=== PATIENT | female | born 1945 | race Caucasian/White ===

== ENCOUNTER → 2020-02-14 09:55 | Outpatient (BNVA) | payer MEDICARE, SELFPAY | PROVIDERS: PCP Internal Medicine; Referring Provider Internal Medicine; Visit Provider Nurse Practitioner | DX: D12.6 Benign neoplasm of colon, unspecified (principal) | CPT/HCPCS: 99213 ==

== ENCOUNTER → 2020-02-20 13:32 | Outpatient (BNVA) | payer MEDICARE, SELFPAY | PROVIDERS: PCP Internal Medicine; Referring Provider Internal Medicine; Visit Provider Internal Medicine | DX: E83.52 Hypercalcemia (principal); E21.3 Hyperparathyroidism, unspecified; M85.80 Other specified disorders of bone density and structure, unspecified site; E55.9 Vitamin D deficiency, unspecified; Z79.899 Other long term (current) drug therapy | CPT/HCPCS: 99202 ==

== ENCOUNTER 2020-02-27 08:29 | Outpatient (REF) | payer MEDICARE, SELFPAY ==
--- NOTE | 2020-02-27 08:34 | US_ITS ---
EXAMINATION: US THYROID CLINICAL INFORMATION: Hyperparathyroidism, unspecified. COMPARISON: None. TECHNIQUE: Linear transducer hendrickson-scale and color Doppler examination with attention to the region of the thyroid. FINDINGS: SIZE: Measurements of the thyroid lobes and nodules are given in sagittal, anteroposterior and transverse dimensions respectively. Right Thyroid Lobe: 4.7 x 1.5 x 1.3 cm, volume 4.9 mL. Parenchyma: The gland echotexture is homogeneous. Thyroid vascularity is normal. Left Thyroid Lobe: 4.5 x 1.5 x 1.4 cm, volume 5.0 mL. Parenchyma: The gland echotexture is homogeneous. Thyroid vascularity is normal. Isthmus: 0.5 cm in maximum AP dimension. RIGHT THYROID LOBE: No nodules. ISTHMUS: No nodules. LEFT THYROID LOBE: No nodules. NODES: No lymphadenopathy is seen in the tissue surrounding the thyroid gland. No visible mass or nodule seen adjacent to the thyroid gland. US/US thyroid IMPRESSION: No evidence of parathyroid adenoma. Unremarkable thyroid ultrasound.
== END 2020-02-27 08:30 | disposition home or self-care (01) ==
LOC: HO.HMGCX 08:29
PROVIDERS: PCP Internal Medicine; Visit Provider Internal Medicine Endocrinology, Diabetes & Metabolism
DX: E21.3 Hyperparathyroidism, unspecified (principal)
CPT/HCPCS: 76536

== ENCOUNTER 2020-03-10 08:56 | Outpatient (REF) | payer MEDICARE, SELFPAY ==
[2020-03-10 11:48] LABS: Albumin Level 4.1 g/dL (3.5-5.0); Calcium 9.8 mg/dL (8.4-10.2)
[2020-03-10 12:12] LABS: Free T4 (Free Thyroxine) 1.11 ng/dL (0.71-1.85); Thyroid Stimulating Hormone 1.96 uIU/mL (0.32-4.0)
[2020-03-11 13:36] LABS: Prot Elec - Albumin 3.6 g/dL (3.8-4.8); Prot Elec - Alpha1 0.4 g/dL (0.2-0.3); Prot Elec - Beta 1 0.5 g/dL (0.4-0.6); Prot Elec - Beta 2 0.4 g/dL (0.2-0.5); Prot Elec - Gamma 1.1 g/dL (0.8-1.7); Prot Elec - Total Protein 6.9 g/dL (6.1-8.1)
[2020-03-11 14:47] LABS: Calcium, Ionized 5.3 mg/dL (4.8-5.6)
[2020-03-11 20:37] LABS: Calcium (PTHI) 10.3 mg/dL (8.6-10.4); PTHI 45 pg/mL (14-64)
[2020-03-17 03:51] LABS: N-Telopeptide 19 (see note); NTXCreaRU 59 mg/dL (20-275)
[2020-03-18 14:03] LABS: Alkaline Phosphatase Bone 10.3 mcg/L (5.6-29.0)
== END 2020-03-10 08:57 | disposition home or self-care (01) ==
LOC: HO.HMGCLDS 08:56
PROVIDERS: PCP Internal Medicine; Visit Provider Internal Medicine
DX: E55.9 Vitamin D deficiency, unspecified (principal); E21.3 Hyperparathyroidism, unspecified
CPT/HCPCS: 36415; 82040; 82306; 82310; 82330; 82523; 83970; 84075; 84100; 84155; 84165; 84439; 84443

== ENCOUNTER 2020-03-12 09:16 | Outpatient (REF) | payer MEDICARE, SELFPAY ==
[2020-03-12 12:12] LABS: Total Volume 24 Hour Urine 3050 mL
[2020-03-12 12:52] LABS: Creatinine, 24Hr Urine 0.7 G/Day (1.0-2.0); Creatinine, mg/dL 22.76
[2020-03-13 16:57] LABS: Calcium, 24 Hr Urine 165 mg/24 h; Calcium/Creatinine Ratio 216 mg/g creat (30-275); Creatinine 24Hr Urine 0.76 g/24 h (0.50-2.15)
== END 2020-03-12 09:17 | disposition home or self-care (01) ==
LOC: HO.HMGCLNP 09:16
PROVIDERS: Visit Provider Internal Medicine
DX: E21.3 Hyperparathyroidism, unspecified (principal)
CPT/HCPCS: 82340; 82570

== ENCOUNTER 2020-04-10 08:59 | Outpatient (REF) | payer MEDICARE, SELFPAY | END 2020-04-10 09:00 | disposition home or self-care (01) | LOC: HO.MAMMO 08:59 | PROVIDERS: Visit Provider Internal Medicine | DX: Z13.89 Encounter for screening for other disorder (principal) ==

== ENCOUNTER 2020-04-14 10:35 | Day surgery (SDC) | payer MEDICARE, SELFPAY ==
[2020-04-07 12:58] VITALS: BMI 25.5
--- NOTE | 2020-04-13 09:14 | HO.ANESPROP2 ---
Documented by User: Laureen Hussein 04/13/20 09:16 HPI - Anesthesia Eval Consult details Narrative: 74yo F for Colonoscopy PMFSH Past Medical History Medical History Background diabetic retinopathy of right eye determined by examination Diabetes Elevated cholesterol HTN (hypertension) Hypercalcemia Hyperparathyroidism Osteopenia Vitamin D deficiency Family History Family History Father Hypertension Diabetes mellitus Heart problem Mother Hypertension Diabetes mellitus Osteoporosis Colon polyps Surgical History Surgical History Hx of cholecystectomy Hx of colonoscopy Hx of hysterectomy Social History Social History Alcohol intake: current Alcohol intake frequency: holidays/special occasions only Smoking Status: Former smoker Tobacco Type: Cigarette Packs Per Day: 1 Years Smoked: 50 Smoked in Last 30 Days: No Smoking Quit Date: 2012 Use of substances other than those prescribed or required for medical reasons: No Advance Directives Information Provided: No Recently lost weight without trying: No Meds Allergies Allergy/AdvReac Type Severity Reaction Status Date / Time No Known Allergies Allergy Verified 04/06/20 08:01 Home Medications Medication Instructions Recorded Confirmed Type folic acid 400 mcg tablet 0.4 mg PO DAILY 02/20/20 04/07/20 History metformin 1,000 mg tablet 1,000 mg PO BID 02/20/20 04/07/20 History omega-3 fatty acids 1,000 mg 1,200 mg PO DAILY cap 02/20/20 04/07/20 History capsule simvastatin 20 mg tablet 20 mg PO DAILY 02/20/20 04/07/20 History cholecalciferol (vitamin D3) 25 25 mcg PO DAILY 04/06/20 04/07/20 History mcg (1,000 unit) capsule Exam Exam Date and Time: April 13, 2020 0914 Height,Weight and Vital Signs: Height 5 ft 2.5 in Weight 64.41 kg Assessment and Plan Assessment Anesthesia Assessment: Chart Reviewed Documented by User: Raúl Hallman 04/14/20 11:35 PMFSH Past Medical History Medical History Background diabetic retinopathy of right eye determined by examination Diabetes Elevated cholesterol HTN (hypertension) Hypercalcemia Hyperparathyroidism Osteopenia Vitamin D deficiency Family History Family History Father Hypertension Diabetes mellitus Heart problem Mother Hypertension Diabetes mellitus Osteoporosis Colon polyps Surgical History Surgical History Hx of cholecystectomy Hx of colonoscopy Hx of hysterectomy Social History Social History Alcohol intake: current Alcohol intake frequency: holidays/special occasions only Smoking Status: Former smoker Tobacco Type: Cigarette Packs Per Day: 1 Years Smoked: 50 Smoked in Last 30 Days: No Smoking Quit Date: 2012 Use of substances other than those prescribed or required for medical reasons: No Advance Directives Information Provided: No Recently lost weight without trying: No Meds Allergies Allergy/AdvReac Type Severity Reaction Status Date / Time No Known Allergies Allergy Verified 04/06/20 08:01 Home Medications Medication Instructions Recorded Confirmed Type folic acid 400 mcg tablet 0.4 mg PO DAILY 02/20/20 04/07/20 History metformin 1,000 mg tablet 1,000 mg PO BID 02/20/20 04/07/20 History omega-3 fatty acids 1,000 mg 1,200 mg PO DAILY cap 02/20/20 04/07/20 History capsule simvastatin 20 mg tablet 20 mg PO DAILY 02/20/20 04/07/20 History cholecalciferol (vitamin D3) 25 25 mcg PO DAILY 04/06/20 04/07/20 History mcg (1,000 unit) capsule Exam Airway Mallampati Class: II TM Dist: >3cm Neck ROM: Full Denture: Upper
[2020-04-14 11:02] VITALS: BP 162/55; PULSE 79; RESP 16; TEMP 36.1; O2SAT 96
[2020-04-14 11:02] LABS: Glucose, Whole Blood 110 mg/dL (60-115)
[2020-04-14] MEDS: Lactated Ringers 1,000 ML 100 ML IVCONT (11:03)
--- NOTE | 2020-04-14 12:20 | P.HPSUR_ITS ---
Pre-Procedural Eval Section B Chief Complaint: benign neoplasm of colon Details of Present Illness: Colon cancer screening, hx of colon polyps Relevant Family History (Specify if Yes): No Relevant Social History: Tobacco Use (former smoker) Present Medications: see Short Stay Collaborative assessment Medical History: Significant History (Hypertension. type II diabetes. ) History of Previous Operations: Relevant previous surgery/procedure and date(s) (Colonoscopy--Tubular adenoma 03/02/09 cholecystectomy 1975 kidney surgery. kidney stones 1079 partial hysterectomy 1998 Colonoscopy--polyps hyperplastic. 10/09/12 Colonoscopy - Dr. Contreras - [facility] [place]/2018 colonoscopy-Dr. Contreras TA's X2 03/2019 ) Allergies: Allergies Allergy/AdvReac Type Severity Reaction Status Date / Time No Known Allergies Allergy Verified 04/06/20 08:01 Review of Systems Sugical H&P ROS: Negative: Constitution, Cardiovascular, Respiratory and Gastrointestinal Exam Surgical H&P Exam: Normal: Heart, Normal: Lungs, Normal: Extremities and Normal: Abdomen Plan Diagnosis/Plan: Unchanged I have reviewed the history and physical and performed a pertinent physical examination on my patient. No changes have occurred unless specified.
--- NOTE | 2020-04-14 12:20 | PM.OP ---
Brief Operative Note Date of Service: 04/14/20 Pre-op diagnosis: Colon cancer screening, hx of colon polyps Post-op diagnosis: other (Colon polyps, diverticulosis, hemorrhoids, cecal AVMs) Procedure: COLONOSCOPY TILL CECUM WITH BIOPSIES AND SNARE POLYPECTOMY Consent: Indications for the procedure and potential complications of bleeding, perforation, reaction to medications and missed diagnosis were discussed with the patient and informed consent was obtained. Instrument: Olympus PCF H 190 L variable stiffness pediatric colonoscope Monitoring: Vital signs and clinical assessment, intermittent blood pressure monitoring, continuous EKG monitoring, Pulse oximetry and Carbon Dioxide monitoring were done throughout the procedure. Colon withdrawl time was 24 minutes. Procedure: The patient was placed in the left lateral decubitis position and pre-procedure medications were administered. After a digital rectal examination of the ano-rectum, the video colonoscope was inserted into the rectum and advanced through the colon to the cecum. The colonoscope was slowly withdrawn in a retrograde panoramic fashion and the colon mucosa was carefully examined including a retroflexed view of the rectum. Findings and interventions are described below. Procedure Difficulty: Without difficulty Findings: Terminal Ileum: Not evaluated Cecum: Two 1 to 2 cms non-bleeding AVMs. Scar in the cecum with adjacent ellie ink tattoo (likely site of past polypectomy) with ? 4-5 mm recurrent polyp removed with a cold bx. Ascending Colon: Two 3-4 mm sessile polyps removed with a cold bx. Transverse Colon: Normal Descending Colon: Moderate diverticulosis Sigmoid Colon: A 12 - 15 mm sessile polyp at 30 cms removed with a hot snare (polyp was at a distance of 60 cms from the anal verge during intubation). A 12-15 mm sessile polyp at 20 cms removed with a hot snare. Moderate diverticulosis Rectum: Multiple 5-7 mm diminutive polyps on retroflexed exam - one was biopsied. Ano-rectum: Inflamed hypertrophied anal papilla. Moderate internal hemorrhoids Colon preparation: Good after some irrigation Impression and Post Procedure Diagnosis: Colonoscopy Findings: Six polyps removed (Sigmoid colon polyp at 30 cms likely to be the polyp noted on previous colonoscopy which could not be removed due to colon spasm) Moderate diverticulosis seen in the left colon Moderate hemorrhoids and an inflamed hypertrophied anal papilla on retroflexed exam. Plan: Await pathology results Patient has an appointment on 04/27/20 in the GI [facility] with Zaria Mcdonald NP. Repeat Colonoscopy interval based on path results - in 3 years if polyps are adenomatous and due to a hx of multiple adenomatous colon polyps. Above findings were reviewed with the patient and colon polyps and diverticulosis handouts were given in the discharge area Surgeon: Papito Brooks MD Anesthesia: MAC (Cassandra Bob CRNA) Estimated blood loss (mL): 0 Pathology: other (A: SIGMOID COLON POLYP AT 30CM B: ASCENDING COLON POLYP C: BX POLYPECTOMY SITE IN THE CECUM D: SIGMOID COLON POLYP E: SIGMOID COLON POLYP AT 20CM F: RECTAL POLYP) Condition: stable Disposition: PACU
[2020-04-14 13:13] VITALS: BP 81/30; PULSE 73; RESP 12; TEMP 36.6; O2SAT 95
[2020-04-14 13:17] VITALS: BP 81/30; PULSE 75; O2SAT 95
[2020-04-14 13:20] VITALS: BP 112/43; PULSE 80; RESP 15; O2SAT 97
[2020-04-14 13:30] VITALS: BP 101/53; PULSE 82; RESP 18; O2SAT 98
[2020-04-14 13:45] VITALS: BP 143/53; PULSE 71; RESP 14; TEMP 36.5; O2SAT 100
== END 2020-04-14 14:20 | disposition home or self-care (01) ==
PROVIDERS: PCP Internal Medicine; Visit Provider Internal Medicine Gastroenterology
PROC: 0DJD8ZZ Inspection of Lower Intestinal Tract, Via Natural or Artificial Opening Endoscopic (ICD-10-PCS; CPT 45378; principal; 2020-04-14 12:30)
DX: Z12.11 Encounter for screening for malignant neoplasm of colon (principal); Z86.010 Personal history of colon polyps; D12.2 Benign neoplasm of ascending colon; K63.5 Polyp of colon; K62.1 Rectal polyp; K55.20 Angiodysplasia of colon without hemorrhage; K57.30 Diverticulosis of large intestine without perforation or abscess without bleeding; K64.8 Other hemorrhoids; K62.89 Other specified diseases of anus and rectum; E11.319 Type 2 diabetes mellitus with unspecified diabetic retinopathy without macular edema; Z79.84 Long term (current) use of oral hypoglycemic drugs; I10 Essential (primary) hypertension; M85.80 Other specified disorders of bone density and structure, unspecified site; Z79.899 Other long term (current) drug therapy; Z90.49 Acquired absence of other specified parts of digestive tract; Z87.891 Personal history of nicotine dependence
CPT/HCPCS: 45385; 45380; 82947; 88305; J2370

== ENCOUNTER → 2020-05-14 09:08 | Outpatient (BNVA) | payer MEDICARE, SELFPAY | PROVIDERS: PCP Internal Medicine; Visit Provider Nurse Practitioner | DX: Z13.89 Encounter for screening for other disorder (principal) | CPT/HCPCS: Q3014 ==

== ENCOUNTER 2020-06-05 09:51 | Outpatient (REF) | payer MEDICARE, SELFPAY ==
--- NOTE | ~2020-06-05 | MM_ITS ---
EXAMINATION: BONE DENSITOMETRY CLINICAL INDICATION: Screening for osteoporosis. COMPARISON: Previous BD dated 05/24/2018 and baseline BD dated 01/29/2009, spine and left hip. This is the patient's baseline examination for the forearm radius 33%. TECHNIQUE: Using a VivaSmart DXA System (software version: 13.1) manufactured by [employer], dual-energy x-ray absorptiometry was performed of the lumbar spine, left hip, and left forearm radius 33%. The images are of good technical quality. Summary results are attached. FINDINGS: AP SPINE L1-L4: Current: BMD 1.254 g/cm2, Z-score 2.2, T-score 0.6, normal, 4.6% decrease from previous, 7.5% increase from baseline (<5% change is not significant). Prior: BMD 1.314 g/cm2. Baseline: BMD 1.167 g/cm2. LEFT FEMUR, NECK: Current: BMD 0.818 g/cm2, Z-score 0.2, T-score -1.6, osteopenia. Prior: BMD 0.770 g/cm2. Baseline: BMD 0.775 g/cm2. LEFT FEMUR, TOTAL: Current: BMD 0.804 g/cm2, Z-score -0.1, T-score -1.6, osteopenia, 0.2% decrease from previous, 2.3% decrease from baseline (<5% change is not significant). Prior: BMD 0.806 g/cm2. Baseline: BMD 0.823 g/cm2. LEFT FOREARM RADIUS 33%: BMD 0.708 g/cm2, Z-score 0.2, T-score -1.9, osteopenia. Prior: Not previously measured. IDENTIFIED RISK FACTORS: Menopause, hysterectomy, bilateral oophorectomy, osteoporosis, hyperparathyroidism. HISTORY OF FRACTURE: None listed. MEDICATIONS: Vitamin D. MM/XR DEXA axial skeleton IMPRESSION: 1. DIAGNOSIS: Osteopenia based on the lowest T-score value of -1.9 in the forearm radius 33% applying World Health Organization criteria. 2. 10-YEAR FRACTURE RISK PREDICTION, FRAX: Major osteoporotic fracture (clinical spine, forearm, hip or shoulder) 11.1%. Hip fracture 2.1%. 3. Treatment Recommendations: NOF guidelines recommend consideration for treatment in postmenopausal women and men age 50 and older presenting with the following: -A hip or vertebral (clinical or morphometric) fracture. -T-score less than or equal to -2.5 at the femoral neck or spine after appropriate evaluation to exclude secondary causes. -Low bone mass at the hip or spine and a 10-year fracture probability by FRAX of greater than or equal to 3% for hip fracture or greater than or equal to 20% for major osteoporotic fracture based on the [place] adapted WHO algorithm. 4. Other Recommendations: All treatment decisions require clinical judgment and consideration of individual patient factors, including patient preferences, comorbidities, previous drug use, risk factors not captured in the FRAX model (e.g. frailty, falls, vitamin D deficiency, increased bone turnover, interval significant decline in bone density) and possible under or overestimation of fracture risk by FRAX. Additional medical evaluation for secondary cause of low bone mineral density may be appropriate. FUTURE SCAN RECOMMENDATION: People with diagnosed cases of osteoporosis or at high risk for fracture should have regular bone mineral density tests. For patients eligible for Medicare, routine testing is allowed once every 2 years. The testing frequency can be increased to one year for patients who have rapidly progressing disease, those who are receiving or discontinuing medical therapy to restore bone mass, or have additional risk factors.
== END 2020-06-05 09:52 | disposition home or self-care (01) ==
LOC: HO.MAMMO 09:51
PROVIDERS: PCP Internal Medicine; Visit Provider Internal Medicine
DX: Z13.820 Encounter for screening for osteoporosis (principal); E21.3 Hyperparathyroidism, unspecified; Z78.0 Asymptomatic menopausal state; Z90.710 Acquired absence of both cervix and uterus; Z90.722 Acquired absence of ovaries, bilateral
CPT/HCPCS: 77080

== ENCOUNTER 2020-06-11 09:19 | Outpatient (REF) | payer MEDICARE, SELFPAY ==
[2020-06-11 11:18] LABS: Alanine Aminotransferase 10 U/L (0-31); Anion Gap 14 (12-20); Aspartate Amino Transferase 14 U/L (5-31); Blood Urea Nitrogen 7 mg/dL (9-16); Calcium 9.7 mg/dL (8.4-10.2); Carbon Dioxide 25 mmol/L (22-29); Chloride 104 mmol/L (96-108); Cholesterol 194 mg/dL; Estimated Glomerular Filt Rate > 60; Glucose Fasting 115 mg/dL (60-99); HDL Cholesterol 65 mg/dL; LDL Cholesterol Calculated 97 mg/dl; Potassium 4.4 mmol/L (3.3-5.1); Sodium 139 mmol/L (135-145); Triglycerides 160 mg/dL
[2020-06-11 11:24] LABS: Estimated Average Glucose 117 mg/dL; Hemoglobin A1c % 5.7 %
[2020-06-11 11:41] LABS: Microalbum/Creatinine Ratio Ur 18.9 ug/mg cr
[2020-06-11 11:42] LABS: Vitamin D 25-OH Total 37.9 ng/mL (>30)
[2020-06-11 13:19] LABS: Albumin Level 4.2 g/dL (3.5-5.0); Calcium 9.8 mg/dL (8.4-10.2); Estimated Glomerular Filt Rate > 60; Phosphorus 3.7 mg/dL (2.7-4.5)
[2020-06-11 13:41] LABS: Vitamin D 25-OH Total 41.6 ng/mL (>30)
[2020-06-12 10:37] LABS: Calcium (PTHI) 9.9 mg/dL (8.6-10.4); PTHI 55 pg/mL (14-64)
[2020-06-12 14:37] LABS: Calcium, Ionized 5.2 mg/dL (4.8-5.6)
== END 2020-06-11 09:20 | disposition home or self-care (01) ==
LOC: HO.10HDL 09:19
PROVIDERS: Visit Provider Internal Medicine
DX: E11.9 Type 2 diabetes mellitus without complications (principal); E78.5 Hyperlipidemia, unspecified; E83.52 Hypercalcemia; M85.80 Other specified disorders of bone density and structure, unspecified site; E21.3 Hyperparathyroidism, unspecified; E55.9 Vitamin D deficiency, unspecified
CPT/HCPCS: 36415; 80048; 80061; 82040; 82043; 82306; 82310; 82330; 82565; 83036; 83970; 84100; 84450; 84460

== ENCOUNTER 2020-06-29 | Outpatient (REF) | payer MEDICARE, SELFPAY ==
[2020-06-29 12:16] LABS: Creatinine, mg/dL 49.39
[2020-06-29 13:39] LABS: Creatinine, 24Hr Urine 0.7 G/Day (1.0-2.0); Total Volume 24 Hour Urine 1425 mL
[2020-07-02 21:37] LABS: Calcium, 24 Hr Urine 171 mg/24 h; Calcium/Creatinine Ratio 226 mg/g creat (30-275); Creatinine 24Hr Urine 0.76 g/24 h (0.50-2.15)
== END 2020-06-29 00:01 | disposition home or self-care (01) ==
LOC: HO.HMGCLNP
PROVIDERS: Visit Provider Internal Medicine
DX: E21.3 Hyperparathyroidism, unspecified (principal)
CPT/HCPCS: 82340; 82570

== ENCOUNTER 2020-07-01 08:52 | Outpatient (REF) | payer MEDICARE, SELFPAY ==
--- NOTE | ~2020-07-01 | MM_ITS ---
EXAMINATION: MM SCREENING DIGITAL BREAST TOMOSYNTHESIS, BILATERAL CLINICAL INFORMATION: Screening. Asymptomatic. The lifetime risk of breast cancer based on the Tyrer-Cuzick Model is 4.6%. Status post incisional biopsy right breast. COMPARISON: Mammography: January 17, 2019 and studies dating back to January 20, 2009 TECHNIQUE: Digital breast tomosynthesis is performed in both the craniocaudal and mediolateral oblique views along with computer-aided detection (CAD). Synthesized 2D images are generated from the tomosynthesis. FINDINGS: There are scattered areas of fibroglandular density (ACR BI-RADS breast composition Category b). There are no new significant masses, abnormal calcifications, or other abnormalities. Postsurgical change seen superior aspect of the right breast. MM/MM tomosynthesis screening BI IMPRESSION: There are no significant changes from prior study. ASSESSMENT: BI-RADS 2: Benign RECOMMENDATION: Routine annual mammography screening. This patient's information was entered into a reminder system with a target due date for their next mammogram.
== END 2020-07-01 08:53 | disposition home or self-care (01) ==
LOC: HO.MAMMO 08:52
PROVIDERS: PCP Internal Medicine; Visit Provider Internal Medicine
DX: Z12.31 Encounter for screening mammogram for malignant neoplasm of breast (principal)
CPT/HCPCS: 77063; 77067

== ENCOUNTER → 2020-07-06 07:28 | Outpatient (BNVA) | payer MEDICARE, SELFPAY | PROVIDERS: PCP Internal Medicine; Visit Provider Internal Medicine | DX: Z13.89 Encounter for screening for other disorder (principal) | CPT/HCPCS: Q3014 ==

== ENCOUNTER 2020-08-05 10:27 | Outpatient (REF) | payer MEDICARE, SELFPAY ==
--- NOTE | ~2020-08-05 | US_ITS ---
EXAMINATION: US RETROPERITONEAL LIMITED (RENAL ONLY) CLINICAL INFORMATION: Hyperparathyroidism, unspecified. COMPARISON: None TECHNIQUE: Real-time imaging of the kidneys. FINDINGS: RIGHT KIDNEY: 11.7 x 5.7 x 5.1 cm (SAG x AP x TRV). The kidney is normal in size, contour, and echogenicity. Renal cortical thickness is normal. No focal parenchymal lesions or hydronephrosis. There is an echogenic stone versus calcification midpole measuring 0.5 x 0.2 x 0.4 cm. There is a hypertrophied column of Gee in the upper pole. LEFT KIDNEY: 10.4 x 4.5 x 4.7 cm (SAG x AP x TRV). The kidney is normal in size, contour, and echogenicity. Renal cortical thickness is normal. No focal parenchymal lesions or hydronephrosis. There are 2 echogenic stones in the lower pole measuring 0.2 x 0.2 x 0.1 cm and 0.2 x 0.2 x 0.2 cm. US/US renal BI IMPRESSION: Likely cortical calcification versus echogenic stone midpole right kidney. No calyces is or hydronephrosis seen. 2 nonobstructive echogenic stones lower pole left kidney.
== END 2020-08-05 10:28 | disposition home or self-care (01) ==
LOC: HO.HMGCX 10:27
PROVIDERS: Visit Provider Internal Medicine
DX: E21.3 Hyperparathyroidism, unspecified (principal)
CPT/HCPCS: 76775

== ENCOUNTER 2020-12-29 09:32 | Outpatient (REF) | payer MEDICARE, SELFPAY ==
[2020-12-29 12:25] LABS: Vitamin D 25-OH Total 46.7 ng/mL (>30)
[2020-12-29 12:33] LABS: Alanine Aminotransferase 12 U/L (0-31); Albumin Level 4.2 g/dL (3.5-5.0); Alkaline Phosphatase 79 U/L (39-117); Anion Gap 17 (12-20); Aspartate Amino Transferase 17 U/L (5-31); Bilirubin Total 0.5 mg/dL (0.0-1.0); Blood Urea Nitrogen 6 mg/dL (9-16); Calcium 10.7 mg/dL (8.4-10.2); Carbon Dioxide 20 mmol/L (22-29); Chloride 105 mmol/L (96-108); Cholesterol 133 mg/dL; Estimated Glomerular Filt Rate > 60; Glucose Fasting 108 mg/dL (60-99); HDL Cholesterol 58 mg/dL; LDL Cholesterol Calculated 52 mg/dl; Phosphorus 3.7 mg/dL (2.7-4.5); Potassium 4.7 mmol/L (3.3-5.1); Sodium 137 mmol/L (135-145); Total Protein 7.2 g/dL (6.5-8.0); Triglycerides 118 mg/dL
[2020-12-29 13:24] LABS: Estimated Average Glucose 108 mg/dL; Hemoglobin A1c % 5.4 %
[2021-01-03 06:31] LABS: Calcium (PTHI) 10.6 mg/dL (8.6-10.4); PTHI 51 pg/mL (14-64)
== END 2020-12-29 09:33 | disposition home or self-care (01) ==
LOC: HO.HMGCLDS 09:32
PROVIDERS: PCP Internal Medicine; Visit Provider Internal Medicine
DX: I10 Essential (primary) hypertension (principal); E11.3291 Type 2 diabetes mellitus with mild nonproliferative diabetic retinopathy without macular edema, right eye; E55.9 Vitamin D deficiency, unspecified; M85.80 Other specified disorders of bone density and structure, unspecified site; E78.5 Hyperlipidemia, unspecified; E21.3 Hyperparathyroidism, unspecified
CPT/HCPCS: 36415; 80048; 80053; 80061; 82306; 83036; 83970; 84100

== ENCOUNTER → 2021-01-04 07:35 | Outpatient (BNVA) | payer MEDICARE, SELFPAY | PROVIDERS: PCP Internal Medicine; Visit Provider Internal Medicine | CPT/HCPCS: Q3014 ==

== ENCOUNTER 2021-01-08 12:52 | Outpatient (REF) | payer MEDICARE, SELFPAY ==
--- NOTE | ~2021-01-08 | US_ITS ---
EXAMINATION: US THYROID CLINICAL INFORMATION: Hyperparathyroidism, unspecified. COMPARISON: Ultrasound soft tissue head/neck thyroid dated 02/27/2020. TECHNIQUE: Linear transducer grayscale and color Doppler examination with attention to the region of the thyroid. FINDINGS: SIZE: Measurements of the thyroid lobes and nodules are given in sagittal, anteroposterior and transverse dimensions respectively. Right Thyroid Lobe: 4.2 x 1.3 x 1.2 cm, volume 3.5 mL. Previously 4.7 x 1.5 x 1.3 cm, volume 4.9 mL. Parenchyma: The gland echotexture is homogeneous. Thyroid vascularity is normal. Left Thyroid Lobe: 5.1 x 1.6 x 1.1 cm, volume 4.6 mL. Previously 4.5 x 1.5 x 1.4 cm, volume 5.0 mL. Parenchyma: The gland echotexture is homogeneous. Thyroid vascularity is normal. Isthmus: 0.69 cm in maximum AP dimension. Previously 0.50 cm. Estimated total number of nodules greater than or equal to 1 cm: 0. Isobutylene Operator Chief nodules are described as follows: 1. Location: Isthmus. Size: 0.20 x 0.21 x 0.30 cm, volume 0.01 mL. Nodule characteristics: Composition: Cystic(0). ACR TI-RADS total points: 0 ACR TI-RADS category: 1 NODES: No lymphadenopathy is seen in the tissue surrounding the thyroid gland. US/US thyroid IMPRESSION: Single thyroid nodule, not suspicious. Thyroid gland is unremarkable otherwise. No evidence of nodule adjacent to the parathyroid gland to suspect any parathyroid adenoma. ACR TI-RADS RECOMMENDATION REFERENCE: Ultrasound-guided fine-needle aspiration, followup ultrasound, no further follow up. * TR1 (0 point) and TR 2 (2 points): No FNA or follow up * TR3 (3 points): FNA if more than or equal to 2.5 cm in maximum dimension, followup ultrasound in 1, 3 and 5 years if 1.5 to 2.4 cm in maximum dimension. * TR4 (4-6 points): FNA if more than or equal to 1.5 cm in maximum dimension, followup ultrasound in 1, 2, 3 and 5 years if 1 to 1.4 cm in maximum dimension. * TR5 (more than or equal to 7 points): FNA if more than or equal to 1 cm in maximum dimension, followup ultrasound every year for 5 years if 0.5 to 0.9 cm in maximum dimension. * TR3, TR4 or TR5 nodules that are below the size threshold for follow up receive no follow up.
== END 2021-01-08 12:53 | disposition home or self-care (01) ==
LOC: HO.HMGCX 12:52
PROVIDERS: PCP Internal Medicine; Visit Provider Internal Medicine
DX: E21.3 Hyperparathyroidism, unspecified (principal)
CPT/HCPCS: 76536

== ENCOUNTER 2021-02-03 14:06 | Outpatient (REF) | payer MEDICARE, SELFPAY ==
[2021-02-03 14:23] LABS: IDNOW Serial# 08D9AD1C; Strep A Nucleic Acid Negative (Negative)
== END 2021-02-03 14:07 | disposition home or self-care (01) ==
LOC: HO.LNP 14:06
PROVIDERS: Visit Provider Physician Assistant Medical
DX: J02.9 Acute pharyngitis, unspecified (principal)
CPT/HCPCS: 87651

== ENCOUNTER 2021-02-04 11:42 | Outpatient (REF) | payer MEDICARE, SELFPAY ==
[2021-02-04 12:36] LABS: Influenza A PCR NEGATIVE (Negative); Influenza B PCR NEGATIVE (Negative); Resp Syncy Virus RNA Qual PCR NEGATIVE (Negative); SARS COV2 PCR INHOUSE NEGATIVE (Negative)
== END 2021-02-04 11:43 | disposition home or self-care (01) ==
LOC: HO.LNP 11:42
PROVIDERS: Visit Provider Physician Assistant Medical
DX: J06.9 Acute upper respiratory infection, unspecified (principal); Z20.822 Contact with and (suspected) exposure to COVID-19
CPT/HCPCS: 0241U

== ENCOUNTER 2021-06-28 08:11 | Outpatient (REF) | payer MEDICARE, SELFPAY ==
[2021-06-28 12:09] LABS: Vitamin D 25-OH Total 49.3 ng/mL (>30)
[2021-06-28 12:11] LABS: Alanine Aminotransferase 14 U/L (0-31); Alkaline Phosphatase 97 U/L (39-117); Anion Gap 12 (12-20); Aspartate Amino Transferase 19 U/L (5-31); Bilirubin Total 0.4 mg/dL (0.0-1.0); Blood Urea Nitrogen 9 mg/dL (9-16); Calcium 9.4 mg/dL (8.4-10.2); Carbon Dioxide 26 mmol/L (22-29); Chloride 104 mmol/L (96-108); Estimated Glomerular Filt Rate > 60; Glucose Random 113 mg/dL (60-115); Phosphorus 3.6 mg/dL (2.7-4.5); Potassium 4.4 mmol/L (3.3-5.1); Sodium 138 mmol/L (135-145); Total Protein 7.2 g/dL (6.5-8.0)
[2021-06-29 17:56] LABS: Calcium (PTHI) 9.3 mg/dL (8.6-10.4); PTHI 25 pg/mL (14-64)
== END 2021-06-28 08:12 | disposition home or self-care (01) ==
LOC: HO.HMGCLDS 08:11
PROVIDERS: Absent Provider Internal Medicine; PCP Internal Medicine; Visit Provider Internal Medicine
DX: E55.9 Vitamin D deficiency, unspecified (principal); E21.3 Hyperparathyroidism, unspecified
CPT/HCPCS: 36415; 80053; 82306; 83970; 84100

== ENCOUNTER 2021-07-01 10:17 | Outpatient (REF) | payer MEDICARE, SELFPAY ==
[2021-07-01 12:21] LABS: Cholesterol 143 mg/dL; HDL Cholesterol 59 mg/dL; LDL Cholesterol Calculated 60 mg/dl; Triglycerides 124 mg/dL
== END 2021-07-01 10:18 | disposition home or self-care (01) ==
LOC: HO.HMGCLDS 10:17
PROVIDERS: PCP Internal Medicine; Visit Provider Internal Medicine
DX: E11.9 Type 2 diabetes mellitus without complications (principal); E78.5 Hyperlipidemia, unspecified
CPT/HCPCS: 36415; 80061

== ENCOUNTER → 2021-07-05 07:27 | Outpatient (BNVA) | payer MEDICARE, SELFPAY | PROVIDERS: PCP Internal Medicine; Visit Provider Internal Medicine | DX: E21.3 Hyperparathyroidism, unspecified (principal); E55.9 Vitamin D deficiency, unspecified; E04.1 Nontoxic single thyroid nodule; M85.80 Other specified disorders of bone density and structure, unspecified site | CPT/HCPCS: 99212 ==

== ENCOUNTER 2021-12-24 09:24 | Outpatient (REF) | payer MEDICARE, SELFPAY ==
[2021-12-24 12:12] LABS: Vitamin D 25-OH Total 40.5 ng/mL (>30)
[2021-12-24 12:18] LABS: Thyroid Stimulating Hormone 2.41 uIU/mL (0.32-4.0)
[2021-12-24 12:20] LABS: Alanine Aminotransferase 24 U/L (0-31); Albumin Level 3.8 g/dL (3.5-5.0); Alkaline Phosphatase 92 U/L (39-117); Anion Gap 19 (12-20); Aspartate Amino Transferase 30 U/L (5-31); Bilirubin Total 0.4 mg/dL (0.0-1.0); Blood Urea Nitrogen 8 mg/dL (9-16); Calcium 8.9 mg/dL (8.4-10.2); Carbon Dioxide 20 mmol/L (22-29); Chloride 105 mmol/L (96-108); Cholesterol 97 mg/dL; Estimated Glomerular Filt Rate > 60; Glucose Fasting 104 mg/dL (60-99); HDL Cholesterol 50 mg/dL; LDL Cholesterol Calculated 29 mg/dl; Phosphorus 3.9 mg/dL (2.7-4.5); Potassium 4.5 mmol/L (3.3-5.1); Sodium 139 mmol/L (135-145); Total Protein 6.9 g/dL (6.5-8.0); Triglycerides 90 mg/dL
[2021-12-24 17:14] LABS: Creatinine Urine 40.66 mg/dL; Microalbum/Creatinine Ratio Ur 14.7 ug/mg cr
[2021-12-26 18:51] LABS: PTHI 20 pg/mL (16-77)
== END 2021-12-24 09:25 | disposition home or self-care (01) ==
LOC: HO.HMGCLDS 09:24
PROVIDERS: Absent Provider Internal Medicine; PCP Internal Medicine; Visit Provider Internal Medicine
DX: E11.9 Type 2 diabetes mellitus without complications (principal); E55.9 Vitamin D deficiency, unspecified; E21.3 Hyperparathyroidism, unspecified
CPT/HCPCS: 36415; 80048; 80053; 80061; 82043; 82306; 83036; 83970; 84100; 84439; 84443

== ENCOUNTER → 2022-01-03 08:50 | Outpatient (BNVA) | payer MEDICARE, SELFPAY | PROVIDERS: PCP Internal Medicine; Visit Provider Internal Medicine | DX: E21.3 Hyperparathyroidism, unspecified (principal); M85.80 Other specified disorders of bone density and structure, unspecified site; E04.1 Nontoxic single thyroid nodule; E55.9 Vitamin D deficiency, unspecified; R01.1 Cardiac murmur, unspecified | CPT/HCPCS: 99212 ==

== ENCOUNTER 2022-01-05 13:58 | Outpatient (REF) | payer MEDICARE, SELFPAY ==
--- NOTE | ~2022-01-05 | US_ITS ---
EXAMINATION: US EXTRACRANIAL CAROTID DUPLEX, BILATERAL CLINICAL INFORMATION: Dizziness and giddiness. COMPARISON: None. TECHNIQUE: Real-time ultrasound and Doppler techniques (integrating B-mode 2-D vascular images, Doppler spectral analysis and color-flow Doppler imaging) were utilized to interrogate the extracranial carotid arteries, the vertebral arteries and proximal subclavian arteries bilaterally. The degree of stenosis is determined by criteria similar to NASCET. FINDINGS: Right Side: 1. There is mild atherosclerotic plaque seen in the bifurcation/proximal ICA region. 2. The common carotid artery PSV proximally is 72 cm/s and distally 66 cm/s. 3. The proximal internal carotid artery velocities are 86 cm/s systolic and 27 cm/s diastolic. 4. The proximal external carotid artery PSV is 128 cm/s. 5. The vertebral artery shows antegrade flow. 6. The subclavian artery waveforms are normal. Left Side: 1. There is significant noncalcified atherosclerotic plaque seen in the common carotid artery and mild calcified plaque at the bifurcation/proximal ICA region. 2. The common carotid artery PSV proximally is 132 cm/s and distally 122 cm/s. 3. The proximal internal carotid artery velocities are 104 cm/s systolic and 28 cm/s diastolic. 4. The proximal external carotid artery PSV is 117 cm/s. 5. The vertebral artery shows antegrade flow. 6. The subclavian artery waveforms are normal. US/US carotid duplex BI IMPRESSION: 1. RIGHT: Mild atherosclerotic plaque. 0-49% right ICA stenosis. 2. LEFT: Mild atherosclerotic plaque. 0-49% left ICA stenosis. Significant noncalcified plaque in the left common carotid artery. Findings will be communicated by the Bailey work flow steam generating powerplant mechanic.
== END 2022-01-05 13:59 | disposition home or self-care (01) ==
LOC: HO.HMGCX 13:58
PROVIDERS: Visit Provider Internal Medicine
DX: R42 Dizziness and giddiness (principal); R06.09 Other forms of dyspnea; R09.89 Other specified symptoms and signs involving the circulatory and respiratory systems
CPT/HCPCS: 93880

== ENCOUNTER → 2022-01-19 08:18 | Outpatient (REF) | payer MEDICARE, SELFPAY ==
--- NOTE | 2022-01-19 08:20 | CA_ITS ---
Transthoracic Echocardiogram Patient (Last, First, Middle): Millie Cisneros E Gender: Female Date of : 1945 Age: 76 Procedure Date: 01/19/2022 Procedure Type: Transthoracic Echocardiogram Location: OP Height: 157.48 cm Weight: 60.33 kg BSA: 1.61 m2 Heart Rate: 80 bpm BP: 140 / 30 mmHg Circuit Board Drafter: TO Referring MD: Sasha White MD Electric Solderer: Francis Hill MD Symptoms: R01.1 - Cardiac murmur, unspecified Study Quality: Fair ECG Rhythm: Sinus Conclusions: - 1. Normal LV systolic function with impaired relaxation filling pattern 2. Moderately dilated left atrium 3. Normal cardiac valvular Doppler 4. Normal RV systolic pressure 5. No gross pericardial effusion Findings Left Ventricle Normal left ventricular size, thickness, and systolic function. The visually estimated ejection fraction is between 55-60%. Spectral Doppler is indicative of an impaired relaxation filling pattern. E/E prime ratio is between 8 and 15 consistent with indeterminate filling pressures. Right Ventricle Normal right ventricular cavity size and systolic function. Atria The left atrium is moderately dilated. There is lipomatous hypertrophy of the interatrial septum. There is no evidence of interatrial shunt. The right atrium is normal in size. Aortic Valve The aortic valve structure and function is likely normal. There is no aortic valve stenosis. There is no aortic valve regurgitation. Mitral Valve Normal mitral valve structure and function. There is trace mitral valve regurgitation. There is no mitral valve stenosis. Pulmonic Valve The pulmonic valve was not well visualized. Tricuspid Valve Likely normal tricuspid valve structure and function. There is mild tricuspid valve regurgitation. The right ventricular systolic pressure is normal. The right ventricular systolic pressure is 29 mmHg. Normal right atrial pressure. There is no evidence of pulmonary hypertension. Great Vessels All visible segments of the aorta are normal in size. The pulmonary artery was not well visualized. Venous The inferior vena cava is normal in size and collapses greater than 50% with inspiration. Pericardium/Pleural There is no evidence of pericardial effusion. Prior Study Comparison No prior study available for comparison. Measurements 2D Linear Measurements IVSd: 1.06 0.6-0.9/0.6-1.0 cm LVIDd: 5.29 3.9-5.3/4.2-5.9 cm LVIDd Index: 3.29 2.4-3.2/2.2-3.1 cm/m2 LVIDs: 3.35 2.0-3.6 cm LVPWd: 0.96 0.7-1.1 cm LA Diam: 4.20 2.7-3.8/3.0-4.0 cm LAIDs Index: 2.61 1.5-2.3 cm/m2 LV Mass: 252.29 67-162/88-224 g LV Mass Index: 156.70 43-95/49-115 g/m2 LVOT Diam: 2.10 3.0+(-)1.3 cm 2D Systolic Function EF 4C: 56.90 >55% EF 2C: 54.40 >55% EF BiP: 55.70 >55% Mitral Valve MV Pk E: 0.73 MV PK A: 0.63 MV Decel Time: 203.00 E/A: 1.20 E'Lateral: 8.49 E'Medial: 6.85 E/E' Med: 10.60 E/E' Lat: 8.60 PHT: 59.00 MVA PHT: 3.73 Decel [place]: 3.59 Aortic Valve AoV Pk Julio: 1.85 AoV Mn Julio: 1.15 AoV VTI: 0.37 AoV Pk Grad: 14.00 Aov Mn Grad: 6.00 DARLINE Cont.VTI: 2.01 LVOT LVOT Pk Julio: 0.97 LVOT Mn Julio: 0.66 LVOT VTI: 0.22 LVOT Pk Grad: 4.00 LVOT Mn Grad: 2.00 LVOT Diam: 2.10 LVOT Area: 3.46 Diastolic Function MV Pk E: 0.73 MV Pk A: 0.63 E/A: 1.20 E'Medial: 6.85 E/E' Med: 10.60 E' Laterial: 8.49 E/E' Lat: 8.60 Right Ventricle TAPSE (mm): 21.60 TVS' Julio: 14.90 Tricuspid Valve TR Pk Julio: 2.56 TR Pk Grad: 26.00 RA Press: 3.00 RVSP: 29.00 Great Vessels Aorta Sinus of Valsalva: 3.15 2.0-3.[address] [place]: 2.37 1.7-3.4 cm Ao Asc: 3.40 2.1-3.4 cm Updated in Other Vendor System with Status of Final Francis Hill MD electronically signed on 01/19/2022 12:26:13 PM with status of Final
== END ==
LOC: HO.CARD 08:18
PROVIDERS: Visit Provider Internal Medicine
DX: R01.1 Cardiac murmur, unspecified (principal); R06.09 Other forms of dyspnea
CPT/HCPCS: 93306

== ENCOUNTER 2022-03-15 13:56 | Outpatient (REF) | payer MEDICARE, SELFPAY ==
--- NOTE | ~2022-03-15 | XR_ITS ---
EXAMINATION: XR CHEST CLINICAL INFORMATION: Shortness of breath COMPARISON: None TECHNIQUE: 2 views of the chest were obtained. FINDINGS: The cardiac silhouette does not appear enlarged. The thoracic aorta is calcified. Hilar and mediastinal contours are otherwise unremarkable. The lungs are clear. There is no pleural effusion or pneumothorax. There are degenerative changes of the spine. XR/XR chest 2V IMPRESSION: No evidence for acute disease in the chest.
== END 2022-03-15 13:57 | disposition home or self-care (01) ==
LOC: HO.XRAY 13:56
PROVIDERS: PCP Internal Medicine; Visit Provider Internal Medicine
DX: R06.02 Shortness of breath (principal); I25.10 Atherosclerotic heart disease of native coronary artery without angina pectoris
CPT/HCPCS: 71046; 93005; 99202

== ENCOUNTER → 2022-05-03 15:08 | Outpatient (BNVA) | payer MEDICARE, SELFPAY | PROVIDERS: PCP Internal Medicine; Visit Provider Internal Medicine | DX: I25.10 Atherosclerotic heart disease of native coronary artery without angina pectoris (principal); I48.0 Paroxysmal atrial fibrillation; I42.9 Cardiomyopathy, unspecified | CPT/HCPCS: 99212 ==

== ENCOUNTER → 2022-05-12 07:59 | Outpatient (REF) | payer MEDICARE, SELFPAY ==
--- NOTE | 2022-05-12 08:05 | CA_ITS ---
Transthoracic Echocardiogram Patient (Last, First, Middle): Millie Cisneros E Gender: Female Date of : 1945 Age: 76 Procedure Date: 05/12/2022 Procedure Type: Transthoracic Echocardiogram Location: OP Height: 157.48 cm Weight: 56.7 kg BSA: 1.57 m2 Heart Rate: bpm BP: 136 / 55 mmHg Jet Operator: TOBY Referring MD: Jovon Diallo MD Entertainment Musician: Francis Hill MD Symptoms: I48.0 - Paroxysmal atrial fibrillation Study Quality: Adequate ECG Rhythm: Sinus Conclusions: - 1. Normal LV systolic function with impaired relaxation filling pattern 2. Moderately dilated left atrium 3. Normal cardiac valvular Dopplers 4. Normal RV systolic pressure 5. No pericardial effusion Findings Left Ventricle Normal left ventricular size, thickness, and systolic function. The visually estimated ejection fraction is between 60-65%. Spectral Doppler is indicative of an impaired relaxation filling pattern. E/E prime ratio is between 8 and 15 consistent with indeterminate filling pressures. Peak GLS is -20.1%, within normal limits Right Ventricle Normal right ventricular cavity size and systolic function. Atria The left atrium is moderately dilated. There is lipomatous hypertrophy of the interatrial septum. There is no evidence of interatrial shunt. The right atrium is normal in size. Aortic Valve Normal aortic valve structure and function. There is no aortic valve stenosis. There is no aortic valve regurgitation. Mitral Valve There is mild anterior and posterior mitral leaflet thickening. There is trace mitral valve regurgitation. There is no mitral valve stenosis. Pulmonic Valve The pulmonic valve was not well visualized. Tricuspid Valve Likely normal tricuspid valve structure and function. There is trace tricuspid valve regurgitation. The right ventricular systolic pressure is normal. The right ventricular systolic pressure is 23 mmHg. Normal right atrial pressure. There is no evidence of pulmonary hypertension. Great Vessels All visible segments of the aorta are normal in size. The pulmonary artery was not well visualized. Venous The inferior vena cava is normal in size and collapses greater than 50% with inspiration. Pericardium/Pleural There is no evidence of pericardial effusion. Prior Study Comparison No significant change compared to prior study dated: 01/19/2022. Measurements 2D Linear Measurements IVSd: 1.18 0.6-0.9/0.6-1.0 cm LVIDd: 4.82 3.9-5.3/4.2-5.9 cm LVIDd Index: 3.07 2.4-3.2/2.2-3.1 cm/m2 LVIDs: 3.08 2.0-3.6 cm LVPWd: 0.96 0.7-1.1 cm LA Diam: 4.20 2.7-3.8/3.0-4.0 cm LAIDs Index: 2.68 1.5-2.3 cm/m2 LV Mass: 234.48 67-162/88-224 g LV Mass Index: 149.35 43-95/49-115 g/m2 LVOT Diam: 2.10 3.0+(-)1.3 cm 2D Systolic Function EF 4C: 64.80 >55% EF 2C: 67.90 >55% EF BiP: 66.90 >55% Mitral Valve MV Pk E: 0.68 MV PK A: 0.73 MV Decel Time: 310.00 E/A: 0.90 E'Lateral: 8.05 E'Medial: 5.55 E/E' Med: 12.20 E/E' Lat: 8.40 PHT: 91.00 MVA PHT: 2.42 Decel Randall: 2.19 Aortic Valve AoV Pk Julio: 1.72 AoV Mn Julio: 1.23 AoV VTI: 0.44 AoV Pk Grad: 12.00 Aov Mn Grad: 7.00 DARLINE Cont.VTI: 1.66 LVOT LVOT Pk Julio: 0.92 LVOT Mn Julio: 0.57 LVOT VTI: 0.21 LVOT Pk Grad: 3.00 LVOT Mn Grad: 1.00 LVOT Diam: 2.10 LVOT Area: 3.46 Diastolic Function MV Pk E: 0.68 MV Pk A: 0.73 E/A: 0.90 E'Medial: 5.55 E/E' Med: 12.20 E' Laterial: 8.05 E/E' Lat: 8.40 Right Ventricle TAPSE (mm): 20.70 TVS' Julio: 14.60 Tricuspid Valve TR Pk Julio: 2.23 TR Pk Grad: 20.00 RA Press: 3.00 RVSP: 23.00 Great Vessels Aorta Sinus of Valsalva: 2.84 2.0-3.[address] Ridge: 2.17 1.7-3.4 cm Ao Asc: 3.10 2.1-3.4 cm Updated in Other Vendor System with Status of Final Francis Hill MD electronically signed on 05/13/2022 9:01:28 AM with status of Final
--- NOTE | 2022-05-12 08:05 | HM_ITS ---
* Total monitoring time about 2 weeks. * Underlying rhythm is sinus with an average rate of 68/Min. Range 44 to 127/Min. * Occasional PACs. [place] of 0.6%. Short runs noted. Longest 52 beats. Looks like atrial tachycardia. * Occasional ventricular ectopy. Low burden. Short runs noted. Longest is 22 beats. Monomorphic. * No significant pauses or AV blocks. * Various symptoms noted in diary. Lightheadedness, chest discomfort, correlate with sinus. Another time, lightheadedness/palpitations correlates with atrial tachycardia. MTDD
== END ==
LOC: HO.CARD 07:59
PROVIDERS: PCP Internal Medicine; Visit Provider Internal Medicine
DX: I48.0 Paroxysmal atrial fibrillation (principal); I42.9 Cardiomyopathy, unspecified
CPT/HCPCS: 93246; 93306; 93356

== ENCOUNTER 2022-06-02 08:36 | Outpatient (REF) | payer MEDICARE, SELFPAY ==
[2022-06-02 11:22] LABS: MANUAL DIFF FLAG NO
[2022-06-02 11:27] LABS: Basophils Absolute Auto 0.1 X10*3/uL (0.0-0.2); Basophils Percent Auto 1.5 % (0-2); Eosinophils Absolute Auto 0.2 X10*3/uL (0.0-0.4); Eosinophils Percent Auto 3.6 % (0-4); Hematocrit 32.2 % (37.0-47.0); Hemoglobin 9.9 g/dl (12.0-16.0); Imm Gran Abs Auto 0.02 X10*3/uL (0.00-0.03); Imm Gran Pct Auto 0.3 % (0.0-0.4); Lymphocytes Absolute Auto 1.8 X10*3/uL (1.2-4.9); Lymphocytes Percent Auto 29.5 % (20-40); Mean Corpuscular HGB Conc 30.7 g/dl (31.0-35.0); Mean Corpuscular Hemoglobin 26.7 pg (27.0-33.0); Mean Corpuscular Volume 86.8 fL (80.0-98.0); Mean Platelet Volume 10.2 fL (9.4-12.3); Monocytes Absolute Auto 0.6 X10*3/uL (0.1-1.2); Monocytes Percent Auto 9.1 % (2-11); Neutrophils Absolute Auto 3.4 x10*3/uL (2.0-8.3); Platelet Count 394 X10*3/uL (160-400); Red Blood Count 3.71 X10*6/uL (4.20-5.50); Red Cell Distribution Width 19.4 % (11.0-16.0); White Blood Count 6.1 X10*3/uL (4.8-10.8)
[2022-06-02 11:47] LABS: Estimated Average Glucose 105 mg/dL; Hemoglobin A1c % 5.3 %
[2022-06-02 12:05] LABS: Alanine Aminotransferase 35 U/L (0-31); Aspartate Amino Transferase 39 U/L (5-31); Cholesterol 222 mg/dL; HDL Cholesterol 78 mg/dL; Iron 47 mcg/dL (30-160); LDL Cholesterol Calculated 124 mg/dl; Percent Iron Saturation 12 % (15-50); Total Iron Binding Capacity 405 mcg/dL (228-428); Triglycerides 100 mg/dL; Unsaturated Iron Binding 358 ug/dL
[2022-06-02 13:06] LABS: Creatinine Urine 22.17 mg/dL
== END 2022-06-02 08:37 | disposition home or self-care (01) ==
LOC: HO.HMGCLDS 08:36
PROVIDERS: PCP Internal Medicine; Visit Provider Internal Medicine
DX: E11.9 Type 2 diabetes mellitus without complications (principal); E78.5 Hyperlipidemia, unspecified; E04.1 Nontoxic single thyroid nodule; D50.0 Iron deficiency anemia secondary to blood loss (chronic); K55.20 Angiodysplasia of colon without hemorrhage; I10 Essential (primary) hypertension
CPT/HCPCS: 36415; 80061; 82043; 83036; 83540; 84450; 84460; 85025

== ENCOUNTER → 2022-07-28 09:18 | Outpatient (BNVA) | payer MEDICARE, SELFPAY | PROVIDERS: PCP Internal Medicine; Referring Provider Internal Medicine; Visit Provider Internal Medicine | DX: I25.10 Atherosclerotic heart disease of native coronary artery without angina pectoris (principal); I48.0 Paroxysmal atrial fibrillation; I42.9 Cardiomyopathy, unspecified; K92.2 Gastrointestinal hemorrhage, unspecified | CPT/HCPCS: 99212 ==

== ENCOUNTER 2022-09-29 08:56 | Outpatient (REF) | payer MEDICARE, SELFPAY ==
[2022-09-29 11:41] LABS: MANUAL DIFF FLAG NO
[2022-09-29 11:54] LABS: Basophils Absolute Auto 0.1 X10*3/uL (0.0-0.2); Eosinophils Absolute Auto 0.2 X10*3/uL (0.0-0.4); Eosinophils Percent Auto 2.4 % (0-4); Hematocrit 38.6 % (37.0-47.0); Hemoglobin 12.4 g/dl (12.0-16.0); Imm Gran Abs Auto 0.04 X10*3/uL (0.00-0.03); Imm Gran Pct Auto 0.5 % (0.0-0.4); Lymphocytes Absolute Auto 1.8 X10*3/uL (1.2-4.9); Lymphocytes Percent Auto 21.8 % (20-40); Mean Corpuscular HGB Conc 32.1 g/dl (31.0-35.0); Mean Corpuscular Hemoglobin 28.7 pg (27.0-33.0); Mean Corpuscular Volume 89.4 fL (80.0-98.0); Mean Platelet Volume 10.3 fL (9.4-12.3); Monocytes Absolute Auto 0.6 X10*3/uL (0.1-1.2); Monocytes Percent Auto 7.6 % (2-11); Neutrophils Absolute Auto 5.6 x10*3/uL (2.0-8.3); Neutrophils Percent Auto 66.7 % (45-73); Platelet Count 329 X10*3/uL (160-400); Red Blood Count 4.32 X10*6/uL (4.20-5.50); Red Cell Distribution Width 14.9 % (11.0-16.0); White Blood Count 8.4 X10*3/uL (4.8-10.8)
[2022-09-29 12:22] LABS: Creatinine Urine 63.27 mg/dL; Microalbum/Creatinine Ratio Ur 14.2 ug/mg cr
[2022-09-29 12:24] LABS: Alanine Aminotransferase 27 U/L (0-31); Anion Gap 13 (12-20); Aspartate Amino Transferase 26 U/L (5-31); Blood Urea Nitrogen 10 mg/dL (9-16); Calcium 9.6 mg/dL (8.4-10.2); Carbon Dioxide 28 mmol/L (22-29); Chloride 106 mmol/L (96-108); Cholesterol 210 mg/dL; Estimated Glomerular Filt Rate > 60; Glucose Fasting 107 mg/dL (60-99); HDL Cholesterol 68 mg/dL; Iron 145 mcg/dL (30-160); LDL Cholesterol Calculated 113 mg/dl; Percent Iron Saturation 39 % (15-50); Potassium 5.2 mmol/L (3.3-5.1); Sodium 142 mmol/L (135-145); Total Iron Binding Capacity 374 mcg/dL (228-428); Triglycerides 146 mg/dL; Unsaturated Iron Binding 229 ug/dL
[2022-09-29 12:25] LABS: Estimated Average Glucose 111 mg/dL; Hemoglobin A1c % 5.5 %
[2022-09-29 12:28] LABS: Vitamin D 25-OH Total 50.4 ng/mL (>30)
== END 2022-09-29 08:57 | disposition home or self-care (01) ==
LOC: HO.HMGCLDS 08:56
PROVIDERS: PCP Internal Medicine; Visit Provider Internal Medicine
DX: D50.0 Iron deficiency anemia secondary to blood loss (chronic) (principal); E11.9 Type 2 diabetes mellitus without complications; E78.5 Hyperlipidemia, unspecified; E55.9 Vitamin D deficiency, unspecified; K55.20 Angiodysplasia of colon without hemorrhage; I10 Essential (primary) hypertension
CPT/HCPCS: 36415; 80048; 80061; 82043; 82306; 83036; 83540; 84450; 84460; 85025

== ENCOUNTER 2023-01-27 08:54 | Outpatient (REF) | payer MEDICARE, SELFPAY ==
[2023-01-27 12:18] LABS: Alanine Aminotransferase 9 U/L (0-31); Anion Gap 16 (12-20); Aspartate Amino Transferase 15 U/L (5-31); Blood Urea Nitrogen 10 mg/dL (9-16); Calcium 9.7 mg/dL (8.4-10.2); Carbon Dioxide 25 mmol/L (22-29); Chloride 105 mmol/L (96-108); Cholesterol 172 mg/dL (<200); Estimated Glomerular Filt Rate > 60; Glucose Fasting 121 mg/dL (60-99); HDL Cholesterol 61 mg/dL (>40); LDL Cholesterol Calculated 90 mg/dL (<100); Potassium 4.6 mmol/L (3.3-5.1); Sodium 141 mmol/L (135-145); Triglycerides 105 mg/dL (<150)
== END 2023-01-27 08:55 | disposition home or self-care (01) ==
LOC: HO.HMGCLDS 08:54
PROVIDERS: PCP Internal Medicine; Visit Provider Internal Medicine
DX: E11.9 Type 2 diabetes mellitus without complications (principal); I10 Essential (primary) hypertension; E78.5 Hyperlipidemia, unspecified
CPT/HCPCS: 36415; 80048; 80061; 83036; 84450; 84460

== ENCOUNTER 2023-02-02 10:35 | Outpatient (AMB) | payer MEDICARE, SELFPAY ==
--- NOTE | 2023-02-02 10:37 | A.OFFPC_ITS ---
Vital Signs 02/02/23 10:38 Height 5 ft 2 in Weight 149 lb BMI 27.2 BP 128/60 Blood Pressure Location Rt brachial Position Sitting Pulse 63 Pulse Source Pulse Oximeter Pulse Oximetry (%) 97 Oxygen Delivery Method Room Air Intake Visit Reasons: 4m follow up htn,lipids Intake Note: patient is here today for 4mo. f/u htn,lipids Allergies No Known Allergies Allergy (Verified 02/02/23 11:20) Medication List - Last Reconciled 02/02/23 by Sasha White MD blood sugar diagnostic (Boxeruch Ultra Test strips) test blood sugars once daily ferrous sulfate 325 mg PO DAILY lancets (VestiageTouch Delica Lancets) test blood sugar once daily metformin 500 mg PO BID metoprolol succinate ER (Toprol XL) 50 mg PO DAILY simvastatin 20 mg PO Q2D 3 months Tobacco use date assessed: 02/02/23 Fall risk assessment: No Falls in past year Last assessed Fall Risk: 02/02/23 Dental Screening Dental Screen Date: 02/02/23 Did you have a dental visit in the last 12 months?: No Did you have a dental problem in the last 6 months where you did not have access to dental care?: No Was dental information given to patient?: Patient has dentist HPI 4m follow up htn,lipids HPI Details 77-year-old lady here today for follow-u p on her diabetes mellitus, hypertension dyslipidemia. She has been compliant with taking her medications, still drives her car, stays active, she had recent fasting labs done which showed hemoglobin A1c at 5.9% and fasting lipids within normal limits. 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 Paroxysmal atrial fibrillation Bilateral carotid bruits Intermittent lightheadedness Dyspnea on minimal exertion Heart murmur Thyroid nodule Type 2 diabetes mellitus without complication, with no history of insulin use Primary hyperparathyroidism Dyslipidemia (high LDL; low HDL) HTN (hypertension) Osteopenia Vitamin D deficiency Hyperparathyroidism Background diabetic retinopathy of right eye determined by examination Surgical History Hx of esophagogastroduodenoscopy Hx of cataract surgery Hx of total thyroidectomy Hx of cholecystectomy Hx of hysterectomy Hx of colonoscopy Family History Father Hypertension Diabetes mellitus Heart problem Congestive heart failure Carotid artery narrowing Mother Hypertension Diabetes mellitus Osteoporosis Colon polyps Social History Housing: House Alcohol intake: current Alcohol intake frequency: holidays/special occasions only Patient Tobacco Use Status: Former Tobacco user Quit Date: 2012 Years Smoked: 50 +/- e-Cigarette/Vaping Use: Never Used service: No Current occupational status: retired Cognitive needs: No Hearing needs: No Vision needs: Yes Questionnaire PHQ-9 Over the last 2 weeks, how often have you been bothered by any of the following problems? 1. Little interest or pleasure in doing things: not at all 2. Feeling down, depressed, or hopeless: not at all 3. Trouble falling or staying asleep, or sleeping too much: not at all 4. Feeling tired or having little energy: not at all 5. Poor appetite or overeating: not at all 6. Feeling bad about yourself - or that you are a failure or have let yourself or your family down: not at all 7. Trouble concentrating on things, such as reading the newspaper or watching television: several days 8. Moving or speaking so slowly that other people could have noticed. Or the opposite - being so fidgety or restless that you have been moving around a lot more than usual: more than half the days 9. Thoughts that you would be better off or of hurting yourself in some way: not at all Total score: 3 Depression Screening Interpretation: Negative Depression Screening Done: Yes 83954 - PHQ-9 Billing: Yes Source: Developed by Drs. Buck Caballero, Myra Littlejohn, Aron Brumfield and colleagues, with an educational farzad from [employer]. Thrive Questionnaire Date Thrive assessed: 02/02/23 I am a: Patient What is your living situation today?: I have a steady place to live Within the past 12 months, did the food you bought not last and you didn't have the money to get more?: Never true Within the past 12 months, did you worry whether your food would run out before you got money to buy more?: Never true Do you have trouble paying for medicines?: No Do you have trouble getting transportation to medical appointments?: No Do you have trouble paying your heating and electricity bill?: No Do you have trouble taking care of your child, family member or friend?: No Do you have trouble with day-to-day activities such as bathing, preparing meals, shopping, managing finances, etc.?: No Are you currently unemployed and looking for a job?: No Are you interested in more education?: No AUDIT C Alcohol Use Questionnaire (AUDIT-C) 1. How often do you have a drink containing alcohol?: Monthly or less 2. How many drinks containing alcohol do you have on a typical day when you are drinking?: 1 or 2 Total Score: 1 DAVID-7 AMB Questionnaire DAVID-7 Date DAVID - 7 assessed: 02/02/23 Feeling nervous, anxious, or on edge: 1 = Several days Not being able to stop or control worryin = Not at all Worrying too much about different things: 0 = Not at all Trouble relaxin = Several days Being so restless that it is hard to sit still: 0 = Not at all Becoming easily annoyed or irritable: 0 = Not at all Feeling afraid as if something awful might happen: 0 = Not at all Total DAVID-7 score (0-4 normal; 5-9 mild; 10-14 moderate; 15-21 severe): 2 Source: Developed by Drs. Buck Caballero, Myra Littlejohn, Aron Brumfield and colleagues, with an educational farzad from [employer]. Review of Systems Const Denies body aches, Denies fatigue, Denies fever(s), Denies headache(s) and Denies weakness Eyes Denies change in vision ENT Denies dizziness and Denies headache(s) Card Denies chest pain, Denies syncope, Denies rapid heart rate, Denies edema, Denies lightheadedness, Denies palpitations and Denies dyspnea Resp Denies cough and Denies dyspnea GI Denies abdominal pain, Denies melena, Denies bloating, Denies hematochezia, Denies change in bowel habits and Denies heartburn Reports no additional complaints Musc Denies abnormal gait, Denies muscle weakness, Denies numbness and Denies tingling Neuro Denies abnormal gait, Denies dizziness, Denies syncope, Denies headache(s), Denies numbness, Denies tingling and Denies weakness Psych Reports no additional complaints Endo Denies fatigue, Denies polyphagia, Denies polydipsia and Denies palpitations Physical exam (Primary Care) Vital Signs: Last Vital Signs Pulse 63 02/02/23 10:38 BP 128/60 02/02/23 10:38 Pulse Ox 97 02/02/23 10:38 Oxygen Delivery Method Room Air 02/02/23 10:38 BMI result Body Mass Index 27.2 Tobacco/Smoking Status: Tobacco use Status Tobacco use date assessed 02/02/23 02/02/23 10:39 Patient Tobacco Use Status Former Tobacco user 02/02/23 10:39 e-Cigarette/Vaping Use Never Used 02/02/23 10:39 PHQ-9: PHQ-9 Score PHQ-9: Total score 3 02/02/23 11:18 Depression Screening Interpretation: Negative Thrive Assessment: Date of Thrive Assessment Date Thrive assessed 02/02/23 02/02/23 11:18 Const Other: Alert elderly female, no acute cardiorespiratory distress, ambulatory with normal gait Orientation/consciousness: patient oriented x3 HENVA Face and sinus: Yes face symmetric Mouth: Normal oral and palatal mucosa present and moist mucous membranes Eyes General: appearance normal, both eyes and all related structures Neck Other: Supple, no lymphadenopathy, full range of motion, carotid bruit bilaterally Resp Effort & Inspection: normal respiratory effort and able to speak in complete sentences Auscultation: clear to auscultation bilaterally Cardio Other: S1-S2 present regular rate and rhythm, sense of systolic murmur over left sternal border GI Other: Normal bowel sounds, soft, nontender, no mass palpated Neuro Other: No speech abnormality noted on today's visit General: patient oriented x3, gait normal, tone normal, moves all extremities, Normal light touch and pain sensation, no focal motor deficits and CN's II-XI intact bilaterally Extrem General: Yes full ROM, Yes no joint enlargement, Yes no pedal edema, Yes no calf tenderness and Yes normal gait Results Reviewed Results Reviewed: RUN: 02/02/23 1119 PAGE 1 [facility] [address] [place] [id number] Slubber Frame Changer: Satish P. Priest, M.D. Specimen Inquiry Name: Millie Cisneros Age/Sex: 77/F : 1945 Unit#: [id number] Attend Dr: Sasha White MD Re01/27/23 Status: DEP REF [facility] Disch: SPEC : [id number] JOE: 01/27/23 STATUS: COMP REQ : [id number] RECD: 01/27/[address]: Sasha White MD COMP: 01/27/23 ENTERED: 01/27/23 [facility] DR: ORDERED: Met Prof Fast, AST, ALT, Lipid Panel Test Result Flag Reference Site Sodium 141 135-145 mmol/L Potassium 4.6 3.3-5.1 mmol/L CL 105 96-108 mmol/L CO2 25 22-29 mmol/L Gap 16 12-20 BUN 10 9-16 mg/dL Creat 0.79 0.5-1.4 mg/dL EGFR > 60 NOTE: For -Romanian individuals, multiply the result by 1.210. Chronic Kidney Disease: Estimated GFR < 60 mL/min/1.73m2 Severe Kidney Disease: Estimated GFR < 15 mL/min/1.73m2 FBS 121 H 60-99 mg/dL A fasting glucose from 100-125 mg/dl is considered impaired (pre-diabetes). CA 9.7 8.4-10.2 mg/dL AST (GOT) 15 5-31 U/L ALT (GPT) 9 0-31 U/L Triglyceride 105 <150 mg/dL Desirable Triglyceride: less than 150 mg/dL Borderline High Triglyceride 150-199 mg/dL High Triglyceride: 200-499 mg/dL Very High Triglyceride: greater than or equal to 5OO mg/dL Cholesterol 172 <200 mg/dL Desirable Cholesterol: less than 200 mg/dL Borderline High Cholesterol: 200-239 mg/dL High Cholesterol: greater than 239 mg/dL LDL Calculated 90 <100 mg/dL Desirable LDL: less than 100 mg/dL Near Optimal/Above Optimal LDL: 110-129 mg/dL Borderline High LDL: 130-159 mg/dL High LDL: 160-189 mg/dL Very High LDL: greater than or equal to 190 mg/dL HDL 61 >40 mg/dL Desirable HDL: greater than 40 mg/dL Laboratory Tests 01/27/23 09:08 Estimat Average Glucose 123 Hemoglobin A1c % 5.9 Assessment and Plan Assessment & Plan (1) Type 2 diabetes mellitus without complication, with no history of insulin use: Code(s): E11.9 - Type 2 diabetes mellitus without complications Plan: Diabetes mellitus controlled with hemoglobin A1c today at 5.9%. Continue with metformin 500 mg 1 tablet twice a day, adhere to recommended diet and get regular exercise. Reminded to get her diabetes retinopathy screening. Reminded to get her flu and COVID booster as well as her shingles vaccine. (2) Dyslipidemia (high LDL; low HDL): Code(s): E78.5 - Hyperlipidemia, unspecified Plan: Fasting lipids are within normal limits, continue with simvastatin takes every other day, in addition to adhering to healthy eating habits (3) HTN (hypertension), benign: Code(s): I10 - Essential (primary) hypertension Plan: Blood pressure at goal of less than 130/80. Continue with metoprolol succinate 50 mg daily. Reinforced importance of following a low sodium diet, getting regular exercise, and lowering stress levels. Orders: Orders Complete Blood Count Auto Diff 07/24/23 D50.0 - Iron deficiency anemia secondary to blood loss (chronic), E11.9 - Type 2 diabetes mellitus without complications, E55.9 - Vitamin D deficiency, unspecified, E78.5 - Hyperlipidemia, unspecified, I10 - Essential (primary) hypertension, K92.2 - Gastrointestinal hemorrhage, unspecified Aspartate Amino Transferase 07/24/23 D50.0 - Iron deficiency anemia secondary to blood loss (chronic), E11.9 - Type 2 diabetes mellitus without complications, E55.9 - Vitamin D deficiency, unspecified, E78.5 - Hyperlipidemia, unspecified, I10 - Essential (primary) hypertension, K92.2 - Gastrointestinal hemorrhage, unspecified Lipid Panel 07/24/23 D50.0 - Iron deficiency anemia secondary to blood loss (chronic), E11.9 - Type 2 diabetes mellitus without complications, E55.9 - Vitamin D deficiency, unspecified, E78.5 - Hyperlipidemia, unspecified, I10 - Essential (primary) hypertension, K92.2 - Gastrointestinal hemorrhage, u nspecified Hemoglobin A1c 07/24/23 D50.0 - Iron deficiency anemia secondary to blood loss (chronic), E11.9 - Type 2 diabetes mellitus without complications, E55.9 - Vitamin D deficiency, unspecified, E78.5 - Hyperlipidemia, unspecified, I10 - Essential (primary) hypertension, K92.2 - Gastrointestinal hemorrhage, unspecified Microalbumin, Random (w Creat) 07/24/23 D50.0 - Iron deficiency anemia secondary to blood loss (chronic), E11.9 - Type 2 diabetes mellitus without complications, E55.9 - Vitamin D deficiency, unspecified, E78.5 - Hyperlipidemia, unspecified, I10 - Essential (primary) hypertension, K92.2 - Gastrointestinal hemorrhage, unspecified Alanine Aminotransferase 07/24/23 D50.0 - Iron deficiency anemia secondary to blood loss (chronic), E11.9 - Type 2 diabetes mellitus without complications, E55.9 - Vitamin D deficiency, unspecified, E78.5 - Hyperlipidemia, unspecified, I10 - Essential (primary) hypertension, K92.2 - Gastrointestinal hemorrhage, unspecified Vitamin D 25-OH Total 07/24/23 D50.0 - Iron deficiency anemia secondary to blood loss (chronic), E11.9 - Type 2 diabetes mellitus without complications, E55.9 - Vitamin D deficiency, unspecified, E78.5 - Hyperlipidemia, unspecified, I10 - Essential (primary) hypertension, K92.2 - Gastrointestinal hemorrhage, unspecified Coding Level of Care Code Est Pt Level 4 (96667) Diagnoses Type 2 diabetes mellitus without complication, with no history of insulin use E11.9 Dyslipidemia (high LDL; low HDL) E78.5 HTN (hypertension), benign I10
[2023-02-02 10:38] VITALS: BP 128/60; PULSE 63; O2SAT 97; BMI 27.2
== END 2023-02-02 12:30 | disposition home or self-care (01) ==
PROVIDERS: PCP Internal Medicine; Visit Provider Internal Medicine
DX: E11.9 Type 2 diabetes mellitus without complications (principal); E78.5 Hyperlipidemia, unspecified; I10 Essential (primary) hypertension
CPT/HCPCS: 99214

== ENCOUNTER 2023-02-07 13:32 | Outpatient (AMB) | payer MEDICARE, SELFPAY ==
--- NOTE | 2023-02-07 13:37 | MHC.OFFVIS ---
Intake Vital Signs 02/07/23 13:38 02/07/23 13:52 Height 5 ft 2 in Weight 148 lb 9.465 oz BMI 27.2 BP 180/72 H 140/60 H Blood Pressure Location Lt brachial Position Sitting Pulse 67 Intake Visit Reasons: 6 mth f/up Intake Note: 6 month follow up Floor Grinder Required: No Accompanied by: Self / Same As Patient Allergies No Known Allergies Allergy (Verified 02/07/23 13:40) Medication List - Last Reconciled 02/07/23 by Jovon Diallo MD blood sugar diagnostic (Packbackuch Ultra Test strips) test blood sugars once daily ferrous sulfate 325 mg PO DAILY lancets (Fashion For HomeTouch Delica Lancets) test blood sugar once daily metformin 500 mg PO BID metoprolol succinate ER (Toprol XL) 50 mg PO DAILY simvastatin 20 mg PO Q2D 3 months HPI HPI Comments History of Present Illness Details Millie returns for follow-up. To recall, she was seen in consultation regarding shortness of breath. We had arranged an echocardiogram and coronary CTA for further evaluation. In the interim, she got admitted to [facility]. At that time, hemoglobin was very low- 3.3. Then she got blood transfusions and got seen by GI; underwent EGD/colonoscopy. Also underwent blood transfusions and then the shortness of breath resolved completely. She is essentially back to normal self. Otherwise, no new complaints. [facility] Medical History Memory change Word finding difficulty Hemorrhage of gastrointestinal tract Anemia due to gastrointestinal blood loss Paroxysmal atrial fibrillation Bilateral carotid bruits Intermittent lightheadedness Dyspnea on minimal exertion Heart murmur Thyroid nodule Type 2 diabetes mellitus without complication, with no history of insulin use Primary hyperparathyroidism Dyslipidemia (high LDL; low HDL) HTN (hypertension) Osteopenia Vitamin D deficiency Hyperparathyroidism Background diabetic retinopathy of right eye determined by examination Surgical History Hx of esophagogastroduodenoscopy Hx of cataract surgery Hx of total thyroidectomy Hx of cholecystectomy Hx of hysterectomy Hx of colonoscopy Family History Father Hypertension Diabetes mellitus Heart problem Congestive heart failure Carotid artery narrowing Mother Hypertension Diabetes mellitus Osteoporosis Colon polyps Social History Housing: House Alcohol intake: current Alcohol intake frequency: holidays/special occasions only Patient Tobacco Use Status: Former Tobacco user Quit Date: 2012 Years Smoked: 50 +/- e-Cigarette/Vaping Use: Never Used service: No Current occupational status: retired Cognitive needs: No Hearing needs: No Vision needs: Yes Review of Systems Const Denies weakness ENT Denies dizziness Card Denies chest pain, Denies chest pain with activity, Denies syncope, Denies rapid heart rate, Denies pedal edema, Denies edema, Denies leg edema, Denies lightheadedness, Denies palpitations, Denies dyspnea, Denies dyspnea on exertion and Denies orthopnea Resp Denies cough, Denies dyspnea and Denies dyspnea on exertion GI Denies hematochezia and Denies change in stool character Musc Denies abnormal gait, Denies muscle cramps, Denies muscle weakness, Denies numbness, Denies radiating pain into limb and Denies tingling Neuro Denies abnormal gait, Denies dizziness, Denies syncope, Denies numbness, Denies tingling and Denies weakness Endo Denies palpitations Physical Exam Vital Signs: Last Vital Signs Pulse 67 02/07/23 13:38 BP 140/60 H 02/07/23 13:52 BMI result Body Mass Index 27.2 Const General: comfortable and no acute distress Orientation/consciousness: patient oriented x3 HEENT Other: Unremarkable Head: Yes normal to inspection Neck Neck: Yes normal visual inspection Chest Chest palpation & inspection: normal inspection of the chest Resp Auscultation: clear to auscultation bilaterally Cardio Palpation: normal PMI Heart sounds: S1 normal heart sound present, S2 normal heart sound present, no gallops, no murmurs and no rubs GI Palpation (GI): Soft to palpation Back/Spine/Pelvis Other: unremarkable Skin General skin exam: no rashes or lesions noted Neuro General: patient oriented x3 Extrem General: Yes normal to inspection Psych Mental Status: mental status grossly normal Assessment & Plan Assessment & Plan (1) Atherosclerotic cardiovascular disease: Code(s): I25.10 - Atherosclerotic heart disease of [place] coronary artery without angina pectoris Plan: Coronary CT shows only mild to moderate CAD. Nothing hemodynamically significant. No angina. She is taking statins alternate days mainly due to side effects. LDL is still acceptable. (2) Paroxysmal atrial fibrillation: Code(s): I48.0 - Paroxysmal atrial fibrillation Plan: Isolated occurrence when she was severely anemic. No recurrences. Hence no clear indication for atrial fibrillation especially with GI bleed/severe anemia history. (3) Hemorrhage of gastrointestinal tract: Code(s): K92.2 - Gastrointestinal hemorrhage, unspecified Plan: Thought to be from bleeding AVMs. Seems they were cauterized by GI at [facility]. Recent hemoglobin is stable. Plan We will see her in 1 year. In the interim, she will call with concerns. Coding Level of Care Code Est Pt Level 3 (24648) Diagnoses Atherosclerotic cardiovascular disease I25.10 Paroxysmal atrial fibrillation I48.0 Hemorrhage of gastrointestinal tract K92.2
[2023-02-07 13:38] VITALS: BP 180/72; PULSE 67; BMI 27.2
[2023-02-07 13:52] VITALS: BP 140/60
== END 2023-02-07 13:55 | disposition home or self-care (01) ==
PROVIDERS: PCP Internal Medicine; Visit Provider Internal Medicine
DX: I25.10 Atherosclerotic heart disease of native coronary artery without angina pectoris (principal); I48.0 Paroxysmal atrial fibrillation; K92.2 Gastrointestinal hemorrhage, unspecified
CPT/HCPCS: 99213

== ENCOUNTER → 2023-02-07 13:32 | Outpatient (BNVA) | payer MEDICARE, SELFPAY | PROVIDERS: PCP Internal Medicine; Visit Provider Internal Medicine | DX: I25.10 Atherosclerotic heart disease of native coronary artery without angina pectoris (principal); I48.0 Paroxysmal atrial fibrillation; R06.02 Shortness of breath; R01.1 Cardiac murmur, unspecified; K92.2 Gastrointestinal hemorrhage, unspecified; Z87.891 Personal history of nicotine dependence | CPT/HCPCS: 99212 ==

== ENCOUNTER 2023-03-03 08:25 | Outpatient (REF) | payer MEDICARE, SELFPAY ==
--- NOTE | ~2023-03-03 | US_ITS ---
EXAMINATION: US THYROID CLINICAL INFORMATION: Nontoxic single thyroid nodule. COMPARISON: Ultrasound soft tissue head/neck thyroid dated 01/08/2021 and 02/27/2020. TECHNIQUE: Linear transducer grayscale and color Doppler examination with attention to the region of the thyroid. FINDINGS: SIZE: Measurements of the thyroid lobes and nodules are given in sagittal, anteroposterior and transverse dimensions respectively. Right Thyroid Lobe: 4.5 x 2.1 x 1.6 cm, volume 7.9 mL. Previously 4.2 x 1.3 x 1.2 cm, volume 3.5 mL. Parenchyma: The gland echotexture is heterogeneous. Thyroid vascularity is normal. Left Thyroid Lobe: 4.8 x 2.0 x 1.4 cm, volume 7.0 mL. Previously 5.1 x 1.6 x 1.1 cm, volume 4.6 mL. Parenchyma: The gland echotexture is heterogeneous. Thyroid vascularity is normal. Isthmus: 0.7 cm in maximum AP dimension. Previously 0.7 cm. Estimated total number of nodules greater than or equal to 1 cm: 0. Automatic Dispenser Mechanic nodules are described as follows: 1. Location: Isthmus. Size: 0.8 x 0.3 x 0.4 cm, volume 0.04 mL. Previously: 0.2 x 0.2 x 0.3 cm, volume 0.01 mL. Nodule characteristics: Composition: Cystic(0). ACR TI-RADS total points: 0 Previous: 0 ACR TI-RADS category: 1 Previous: 1 Significant change in size (>/= 20% in 2 dimensions and minimal increase of 2 mm or 50% or greater increase in volume): Yes Change in features: No Change in ACR TI-RADS risk category: No NODES: No lymphadenopathy is seen in the tissue surrounding the thyroid gland. US/US thyroid IMPRESSION: A 0.8 cm TR 1 thyroid nodule has increased in size. ACR TI-RADS RECOMMENDATION REFERENCE: Ultrasound-guided fine-needle aspiration, follow up ultrasound, no further followup. * TR1 (0 point) and TR2 (2 points): No FNA or followup * TR3 (3 points): FNA if more than or equal to 2.5 cm in maximum dimension, follow up ultrasound in 1, 3 and 5 years if 1.5 to 2.4 cm in maximum dimension. * TR4 (4-6 points): FNA if more than or equal to 1.5 cm in maximum dimension, follow up ultrasound in 1, 2, 3 and 5 years if 1 to 1.4 cm in maximum dimension. * TR5 (more than or equal to 7 points): FNA if more than or equal to 1 cm in maximum dimension, follow up ultrasound every year for 5 years if 0.5 to 0.9 cm in maximum dimension. * TR3, TR4 or TR5 nodules that are below the size threshold for follow up receive no followup.
== END 2023-03-03 08:26 | disposition home or self-care (01) ==
LOC: HO.HMGCX 08:25
PROVIDERS: PCP Internal Medicine; Visit Provider Internal Medicine
DX: E04.1 Nontoxic single thyroid nodule (principal)
CPT/HCPCS: 76536

== ENCOUNTER 2023-03-09 08:42 | Outpatient (REF) | payer MEDICARE, SELFPAY ==
[2023-03-09 11:52] LABS: Vitamin D 25-OH Total 37.5 ng/mL (>30)
[2023-03-10 15:13] LABS: Calcium (PTHI) 9.5 mg/dL (8.6-10.4); PTHI 24 pg/mL (16-77)
== END 2023-03-09 08:43 | disposition home or self-care (01) ==
LOC: HO.HMGCLDS 08:42
PROVIDERS: PCP Internal Medicine; Visit Provider Internal Medicine Endocrinology, Diabetes & Metabolism
DX: E21.3 Hyperparathyroidism, unspecified (principal); E55.9 Vitamin D deficiency, unspecified
CPT/HCPCS: 36415; 82306; 83970

== ENCOUNTER 2023-03-13 16:02 | Outpatient (AMB) | payer MEDICARE, SELFPAY ==
--- NOTE | 2023-03-13 16:05 | MHC.OFFVIS ---
Intake Vital Signs 03/13/23 16:06 Height 5 ft 2 in Weight 152 lb 12.485 oz BMI 27.9 BP 152/82 H Blood Pressure Location Lt brachial Position Sitting Pulse 72 Pulse Source Pulse Oximeter Intake Visit Reasons: F/U Hyperparathyroidism Intake Note: Patient present for Hyperparathyroidism follow up. Previously followed by Dr. Inman. 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 Accompanied by: Self / Same As Patient Allergies No Known Allergies Allergy (Verified 03/13/23 16:08) Medication List - Last Reconciled 03/13/23 by Buck Cuellar MD blood sugar diagnostic ([employer] Ultra Test strips) test blood sugars once daily ferrous sulfate 325 mg PO DAILY lancets (OneTouch Delica Lancets) test blood sugar once daily metformin 500 mg PO BID metoprolol succinate ER (Toprol XL) 50 mg PO DAILY simvastatin 20 mg PO Q2D 3 months HPI HPI Comments History of Present Illness Details 77 YO F with PMHx T2DM, HTN, HLD who is seen in F/U for Hypercalcemia due to hyperparathyroidism. The patient last saw Dr. Inman on 01/03/2022 First noted to have high calcium in 2018. Levels were checked 12/11/2019 with Total Calcium 10.6 and PTH of 30. Concerning for hyperparathyroidism, but no Vitamin D or Albumin were checked. She was on HCTZ 12.5 mg PO daily at that time, but stopped this after our initial visit. Las were repeated 2 weeks later 03/10/2020 with Total Calcium 10.3, Albumin 4.1, PTH 45 and Vitamin D 42.0. 24 hour urinary calcium was WNL. An US of the neck revealed no obvious parathyroid adenoma. Labs were repeated again 06/11/2020 after a full 6 months off HCTZ. These revealed a Calcium of 9.9, Albumin 4.2, PTH 55, and Vitamin D 41.6. 24 hour urine Calcium remained WNL, and this was an adequate collection. DEXA was repeated 06/05/2020 and this revealed Osteopenia of the hip and the distal forearm. US if the kidneys revealed bilateral nephrolithiasis. She was referred to Dr. Cantu and underwent a surgical parathyroidectomy 05/24/2021. She had resection of a 1 cm left inferior parathyroid adenoma and a hypercellular right superior parathyroid gland. Intraoperative PTH declined from 68-23, indicating cure. Repeat postoperative labs are WNL. She reports feeling well. She denies any perioral numbness or tingling. She denies any cramping out of the ordinary for her. She has 2 servings of dietary calcium per day in the form of almond milk. Currently not using a Calcium supplement. Currently not taking a Vitamin D supplement. Kidney stones: One episode many years ago. Osteoporosis: Has had osteopenia of the hip since 2004. Was treated with Fosamax for 5 years, and completed this in 2018. Family history of high calcium or kidney stones: Denies Renal imagin08/05/2020 FINDINGS: RIGHT KIDNEY: 11.7 x 5.7 x 5.1 cm (SAG x AP x TRV). The kidney is normal in size, contour, and echogenicity. Renal cortical thickness is normal. No focal parenchymal lesions or hydronephrosis. There is an echogenic stone versus calcification midpole measuring 0.5 x 0.2 x 0.4 cm. There is a hypertrophied column of Gee in the upper pole. LEFT KIDNEY: 10.4 x 4.5 x 4.7 cm (SAG x AP x TRV). The kidney is normal in size, contour, and echogenicity. Renal cortical thickness is normal. No focal parenchymal lesions or hydronephrosis. There are 2 echogenic stones in the lower pole measuring 0.2 x 0.2 x 0.1 cm and 0.2 x 0.2 x 0.2 cm. DXA 06/05/2020: FINDINGS: AP SPINE L1-L4: Current: BMD 1.254 g/cm2, Z-score 2.2, T-score 0.6, normal, 4.6% decrease from previous, 7.5% increase from baseline (<5% change is not significant). Prior: BMD 1.314 g/cm2. Baseline: BMD 1.167 g/cm2. LEFT FEMUR, NECK: Current: BMD 0.818 g/cm2, Z-score 0.2, T-score -1.6, osteopenia. Prior: BMD 0.770 g/cm2. Baseline: BMD 0.775 g/cm2. LEFT FEMUR, TOTAL: Current: BMD 0.804 g/cm2, Z-score -0.1, T-score -1.6, osteopenia, 0.2% decrease from previous, 2.3% decrease from baseline (<5% change is not significant). Prior: BMD 0.806 g/cm2. Baseline: BMD 0.823 g/cm2. LEFT FOREARM RADIUS 33%: BMD 0.708 g/cm2, Z-score 0.2, T-score -1.9, osteopenia. Prior:? Not previously measured. Thyroid US: 01/08/2021 Right Thyroid Lobe: 4.2 x 1.3 x 1.2 cm, volume 3.5 mL. Previously 4.7 x 1.5 x 1.3 cm, volume 4.9 mL. Parenchyma: The gland echotexture is homogeneous. Thyroid vascularity is normal. Left Thyroid Lobe: 5.1 x 1.6 x 1.1 cm, volume 4.6 mL. Previously 4.5 x 1.5 x 1.4 cm, volume 5.0 mL. Parenchyma: The gland echotexture is homogeneous. Thyroid vascularity is normal. Isthmus: 0.69 cm in maximum AP dimension. Previously 0.50 cm. Estimated total number of nodules greater than or equal to 1 cm: 0. Data Keyer nodules are described as follows: 1.? Location: Isthmus. ?? ? Size: 0.20 x 0.21 x 0.30 cm, volume 0.01 mL. ?? ? Nodule characteristics: ?? ? Composition: Cystic(0). ?? ? ACR TI-RADS total points: 0 ?? ? ACR TI-RADS category: 1 NODES: No lymphadenopathy is seen in the tissue surrounding the thyroid gland. Labs: Laboratory Tests 12/24/21 12/24/21 12/24/21 09:32 09:32 09:32 Sodium 139 Potassium 4.5 Creatinine 0.71 Estimated GFR > 60 25-OH Vitamin D To rommel 40.5 TSH 2.41 Free T4 1.10 PTH Intact 20 Calcium (PTH Intac t) 9.0 [facility] Medical History Memory change Word finding difficulty Hemorrhage of gastrointestinal tract Anemia due to gastrointestinal blood loss Paroxysmal atrial fibrillation Bilateral carotid bruits Intermittent lightheadedness Dyspnea on minimal exertion Heart murmur Thyroid nodule Type 2 diabetes mellitus without complication, with no history of insulin use Primary hyperparathyroidism Dyslipidemia (high LDL; low HDL) HTN (hypertension) Osteopenia Vitamin D deficiency Hyperparathyroidism Background diabetic retinopathy of right eye determined by examination Surgical History Hx of esophagogastroduodenoscopy Hx of cataract surgery Hx of total thyroidectomy Hx of cholecystectomy Hx of hysterectomy Hx of colonoscopy Family History Father Hypertension Diabetes mellitus Heart problem Congestive heart failure Carotid artery narrowing Mother Hypertension Diabetes mellitus Osteoporosis Colon polyps Social History Housing: House Alcohol intake: current Alcohol intake frequency: holidays/special occasions only Patient Tobacco Use Status: Former Tobacco user Quit Date: 2012 Smoked: 50 +/- e-Cigarette/Vaping Use: Never Used service: No Current occupational status: retired Cognitive needs: No Hearing needs: No Vision needs: Yes Physical Exam Vital Signs: Last Vital Signs Pulse 72 03/13/23 16:06 BP 152/82 H 03/13/23 16:06 BMI result Body Mass Index 27.9 Const Other: Thyroid gland is normal size weighs about 15 g. There are no thyroid nodules palpated Assessment & Plan Assessment & Plan (1) Hyperparathyroidism: Comment: seeing endocrinology Code(s): E21.3 - Hyperparathyroidism, unspecified Plan: 77-year-old white female status post parathyroidectomy with normalization of PTH and calcium. At This point, patient follow-up with primary care provider. There is no reason for any further endocrine follow-up . (2) Osteopenia: Code(s): M85.80 - Other specified disorders of bone density and structure, unspecified site Qualifiers: Osteopenia location: unspecified Qualified Code(s): M85.80 - Other specified disorders of bone density and structure, unspecified site Plan: History of osteopenia on vitamin-D replacement. Patient should continue with vitamin-D replacement and calcium supplementation. She should follow-up with primary care provider and perhaps another bone density she repeated about 1-2 years time. Should follow-up with endocrinology as needed (3) Thyroid nodule: Code(s): E04.1 - Nontoxic single thyroid nodule Plan: History of subcentimeter thyroid nodule. She appears to be clinically euthyroid. Patient can follow-up with primary care provider repeat thyroid ultrasound should be performed in about 2-3 years time. If this is difficult change in the size of the nodule or characteristics of the nodule, patient returned back to enter Coding Level of Care Code Est Pt Level 3 (02834) Diagnoses Hyperparathyroidism E21.3 Osteopenia, unspecified location M85.80 Osteopenia location: unspecified Thyroid nodule E04.1
[2023-03-13 16:06] VITALS: BP 152/82; PULSE 72; BMI 27.9
== END 2023-03-13 16:28 | disposition home or self-care (01) ==
PROVIDERS: PCP Internal Medicine; Visit Provider Internal Medicine Endocrinology, Diabetes & Metabolism
DX: E21.3 Hyperparathyroidism, unspecified (principal); M85.80 Other specified disorders of bone density and structure, unspecified site; E04.1 Nontoxic single thyroid nodule
CPT/HCPCS: 99213

== ENCOUNTER → 2023-03-13 16:02 | Outpatient (BNVA) | payer MEDICARE, SELFPAY | PROVIDERS: PCP Internal Medicine; Visit Provider Internal Medicine Endocrinology, Diabetes & Metabolism | DX: E21.3 Hyperparathyroidism, unspecified (principal); E04.1 Nontoxic single thyroid nodule; M85.80 Other specified disorders of bone density and structure, unspecified site; E11.319 Type 2 diabetes mellitus with unspecified diabetic retinopathy without macular edema | CPT/HCPCS: 99212 ==

== ENCOUNTER 2023-03-21 09:57 | Outpatient (AMB) | payer MEDICARE, SELFPAY ==
--- NOTE | 2023-03-21 10:00 | A.OFFVIS_ITS ---
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 Pt reports lastyear she was hospitalized with a low blood count and has had memory and speech disturbances since. 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 she is accompanied by her daughters . It started about 1 year ago but at that time she was severely anemic due to GI bleed . Her anemia resolved but her she still has memory issues. 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 She reports difficulty retaining information, has trouble remembering conversations, trouble participating because of word finding difficulties. she also misplaces things, trouble with names etc.she usually writes down her appointments. she still cooks but has trouble with her new stove ( keeps reading the instructions) she has mild depression and anxiety. Last winter she lost some of her friends and another friend dies 2 months ago . she lives with her who is 88 . [facility] Medical History Memory change Word finding difficulty Hemorrhage of gastrointestinal tract Anemia due to gastrointestinal blood loss Paroxysmal atrial fibrillation Bilateral carotid bruits Intermittent lightheadedness Dyspnea on minimal exertion Heart murmur Thyroid nodule Type 2 diabetes mellitus without complication, with no history of insulin use Primary hyperparathyroidism Dyslipidemia (high LDL; low HDL) HTN (hypertension) Osteopenia Vitamin D deficiency Hyperparathyroidism Background diabetic retinopathy of right eye determined by examination Surgical History Hx of esophagogastroduodenoscopy Hx of cataract surgery Hx of total thyroidectomy Hx of cholecystectomy Hx of hysterectomy Hx of colonoscopy Family History Father Hypertension Diabetes mellitus Heart problem Congestive heart failure Carotid artery narrowing Mother Hypertension Diabetes mellitus Osteoporosis Colon polyps Housing: House Alcohol intake: current Alcohol intake frequency: holidays/special occasions only Patient Tobacco Use Status: Former Tobacco user Quit Date: 2012 Years Smoked: 50 +/- e-Cigarette/Vaping Use: Never Used service: No Current occupational status: retired Cognitive needs: No Hearing needs: No Vision needs: Yes Review of Systems Neuro Reports Abnormal speech present, Reports memory loss and Reports tremor(s) Psych Denies anxiety, Reports depression and Reports memory loss Physical Exam Vital Signs: Last Vital Signs Pulse 67 03/21/23 10:03 Resp 17 03/21/23 10:03 BP 200/96 H 03/21/23 10:03 Pulse Ox 97 03/21/23 10:03 Oxygen Delivery Method Room Air 03/21/23 10:03 BMI result Body Mass Index 28.2 Const General: cooperative, healthy appearing and comfortable Nutritional Appearance: average body habitus Orientation/consciousness: patient oriented x3 Eyes Pupils: Equal, round and reactive pupils present Neuro General: patient oriented x3, tone normal, moves all extremities and no focal motor deficits Cranial nerves: Yes Facial sensation intact/muscles of mastication intact, Yes Equal, round and reactive pupils present, Yes Bilaterally intact EOM present, Yes Nystagmus not present, Yes Normal facial strength present and No Midline tongue present Cognition (Neuro): normal cognition Speech: Abnormal speech present Gait exam (Neuro): Normal gait present Motor exam (neuro): 5/5 motor strength present throughout Deep tendon reflexes (DTR's): Right triceps reflex intensity grade: 3+, Left triceps reflex intensity grade: 3+, Rt Biceps (C5, C6): 3+, Left biceps reflex intensity grade: 3+, Right brachioradialis reflex intensity grade: 3+, Left brachioradialis reflex intensity grade: 3+, Right patellar reflex intensity grade: 3+, Left patellar reflex intensity grade: 3+, Right ankle reflex intensity grade: 2+ and Left ankle reflex intensity grade: 2+ Coordination: [id number] test normal Orientation What is the (year) (season) (date) (day) (month)?: year, season, date, day and month Where are we (state) (county) (town or city) (hospital) (floor)?: state, county, town or city, hospital/clinic and floor Registration Name of 3 unrelated objects clearly and slowly, then ask patient to repeat all 3 of them. (1st repeat determines score. Make sure they can repeat all three): object 1, object 2 and object 3 Attention & Calculation (CHOOSE ONE) Spell WORLD backwards (DLROW): 5 letters Recall Ask patient to repeat the 3 items from question #3.: object 1 and object 2 Language Show patient a wristwatch & ask what it is. Repeat for pencil.: watch and pencil Ask the patient to repeat the phrase 'No ifs, ands, or buts' after you.: correct Ask the patient to 'take a piece of paper with their right hand' 'fold paper in half' 'place paper on floor': take paper in right hand, fold paper in half and place paper on floor Print the sentence 'CLOSE YOUR EYES' on a piece. If patient actually closes eyes then score.: followed written direction Give patient a blank piece of paper & ask to write a sentence. Score if it contains a noun & verb.: sentence contains subject and verb Ask patient to copy figure of intersecting pentagons exactly. Score if all 10 angles & 2 intersects are included.: all 10 angles present & 2 are intersected Score Score: 29 Assessment & Plan Assessment & Plan (1) Memory change: Comment: mood related Code(s): R41.3 - Other amnesia (2) Word finding difficulty: Code(s): R47.89 - Other speech disturbances Plan I will evaluate her with MRI Brain Vit B 12, TSH VIT D Citalopram 10 mg qd for mood Speech therapy Orders: Orders Vitamin B12 and Folate Today R41.3 - Other amnesia Vitamin D 25-OH (D2 and D3) Today R41.3 - Other amnesia TSH reflex Free T4 Today R41.3 - Other amnesia MR brain wo con w neuroquant Today R41.3 - Other amnesia, [id number] - Other speech disturbances Referrals Speech and Hearing Referral R47.89 - Other speech disturbances Medications: New citalopram 10 mg PO DAILY 30 tabs 6RF Coding Level of Care Code New Pt Level 4 (15590) Diagnoses Memory change R41.3 Word finding difficulty R47.89
[2023-03-21 10:03] VITALS: BP 200/96; PULSE 67; RESP 17; O2SAT 97; BMI 28.2
== END 2023-03-21 10:47 | disposition home or self-care (01) ==
PROVIDERS: PCP Internal Medicine; Visit Provider Psychiatry & Neurology Neurology
DX: R41.3 Other amnesia (principal); R47.89 Other speech disturbances
CPT/HCPCS: 99204

== ENCOUNTER → 2023-03-21 09:57 | Outpatient (BNVA) | payer MEDICARE, SELFPAY | PROVIDERS: PCP Internal Medicine; Visit Provider Psychiatry & Neurology Neurology | DX: R41.3 Other amnesia (principal); R47.89 Other speech disturbances | CPT/HCPCS: 99202 ==

== ENCOUNTER 2023-03-27 09:51 | Outpatient (REF) | payer MEDICARE, SELFPAY ==
[2023-03-27 14:26] LABS: TSH reflex Free T4 3.59 uIU/mL (0.32-4.0)
[2023-03-27 14:43] LABS: Folate 7.3 ng/mL (> or = 4.0); Vitamin B12 293 pg/mL (200-900)
[2023-03-30 13:04] LABS: Vitamin D 25-OH, D2 <4 ng/mL; Vitamin D 25-OH, D3 33 ng/mL; Vitamin D 25-OH, Total 33 ng/mL (30-100)
== END 2023-03-27 09:52 | disposition home or self-care (01) ==
LOC: HO.HMGCLDS 09:51
PROVIDERS: PCP Internal Medicine; Visit Provider Psychiatry & Neurology Neurology
DX: R41.3 Other amnesia (principal)
CPT/HCPCS: 36415; 82306; 82607; 82746; 84443

== ENCOUNTER 2023-05-04 09:18 | Outpatient (RCR) | payer MEDICARE, SELFPAY ==
--- NOTE | 2023-05-16 16:01 | MHC.SP.ADU ---
Referring provider: Dr. Karely Pearce Reason for Referral: MCI v. 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 she is accompanied by her daughters. It started about 1 year ago but at that time she was severely anemic due to GI bleed . Her anemia resolved but her she still has memory issues. Her halfway memory is good. She reports difficulty retaining information, has trouble remembering conversations, trouble participating because of word finding difficulties. She also misplaces things, trouble with names etc.she usually writes down her appointments. She still cooks but has trouble with her new stove ( keeps reading the instructions). She has mild depression and anxiety. Last winter she lost some of her friends and another friend dies 2 months ago. She lives with her who is 88. She had an MRI on 05/11/23 with the following impressions: The baseline morphometric analysis demonstrates normal age adjusted relative volumes with no evidence to support neurodegeneration. No acute infarction, hemorrhage, mass, or extra-axial collection. Subjective impression of moderate degree of diffuse brain parenchymal volume loss. Polypoid mucosal thickening opacifies the left ostiomeatal complex. Pt endorses some mood disturbances. She is recently started on medication. She scored in the Mild Range for Depression on the Depression, Anxiety and Stress Scale - 21 (SAMAN-21). Anxiety and Stress measures were WFL. She endorses difficulty with memory. Scored in the Mild Range on the Satisfaction Scale of the Multifactoral Memory Questionnaire (MMQ). She was WFL on the Ability Scale of the MMQ. For reasons that will become clear, she reports history of cataracts and had her retinas zapped 3 years ago. Medical History: Past medical history includes: Memory change Word finding difficulty Hemorrhage of gastrointestinal tract Anemia due to gastrointestinal blood loss Paroxysmal atrial fibrillation Bilateral carotid bruits Intermittent lightheadedness Dyspnea on minimal exertion Heart murmur Thyroid nodule Type 2 diabetes mellitus without complication, with no history of insulin use Primary hyperparathyroidism Dyslipidemia (high LDL; low HDL) HTN (hypertension) Osteopenia Vitamin D deficiency Hyperparathyroidism Background diabetic retinopathy of right eye determined by examination Recent Hospitalizations: No Respiratory Needs: Room Air Patient Orientation: Alert & Oriented x 4 Social History: Employment Status: Retired Highest level of education obtained: Completed High School/GED Current Living Situation: Lives at home with her 88 year-old . She has 6 children that live regionally. Assistive Devices in use: Past Speech Language Therapy: None. Other Therapies Seen in Current Calendar Year: None Swallowing History: Dysphagia Specific: Within Functional Limits Comments: Pre-eval Risk for Aspiration: None Pre-evaluation Dietary Consistencies: Regular Pre-eval Liquid Intake: Thin Pre-eval Medication Intake: Whole with Liquid Reported Speech, Language, Cognition difficulties: Attention Memory Cognition Problem Solving Quality of Life: Patient Stated Goal of Speech-Language Therapy: Cognitive stimulation Assessment Speech Production: Within Functional Limits Clinical Impression: Intact Informal Voice Assessment: Voice Loudness: Normal Voice Nasal Resonance: Normal Voice Oral Resonance: Normal Voice Phonatory-based Quality: Normal Voice Pitch: Normal Clinical Impression: Intact Tests of Speech & Lang Adults: Clinical Impression: Did Not Test Tests of Cognition: RBANS Clinical Impression: Impaired Observations: Pt participated in the RBANS - Form A. Her scores are as follows. R-BANS Update I.) Immediate Memory Index: 76 Ia.) List Learning: -- Scaled Score: 3 Ib.) Story Memory: -- Scaled Score: 8 II.) Visuospatial/Constructional Index: 66 IIa.) Figure/Copy: -- Scaled Score: 14 IIb.) Line Orientation: -- Percentile Group: 3-9 III.) Language Index: 96 IIIa.) Picture Naming: -- Percentile Group: 51-75 IIIb.) Semantic Fluency: -- Scaled Score: 8 IV.) Attention Index: 68 Morenita.) Digit Span: -- Scaled Score: 7 IVb.) Coding: -- Scaled Score: 3 V.) Delayed Memory Index: 110 Va.) List Recall: -- Percentile Group: 51-75 Vb.) List Recognition: -- Percentile Group: 26-50 Vc.) Story Recall: -- Scaled Score: 12 Vd.) Figure Recall: -- Scaled Score: 11 Total Scale Score: 79 (%ile: 8) SUMMARY: Her scores on the Language and Delayed Memory Index are Average. Her scores on Immediate Memory, Visuo-spatial Construction and Attention are in the Low Average Range. Remarkably there is a significant gap between Immediate and Delayed Memory, a possible cause could be internal distractions associated with depression, stress, and anxiety when completing these tasks. Also of note, she had an unusually difficult time with tasks that placed demands on her vision. Given her history of vision problems it is recommended she follow-up with a vision therapist. Augmentative and Alternative Communication: Did Not Test Impressions and Recommendations Prognosis for Improvement: Excellent Recommendation for Speech Therapy: Outpatient Speech Therapy Frequency/Duration: 1 x week x 12 weeks Date Range for Service Requested: 05/04/22 - 09/01/22 Time to Reassess: 3 months [facility] Goals: LTG1: Pt will demonstrate ability to perform independently on a range of cognitively stimulating tasks. Short Term Goals: Goal # : STG1: Pt will identify the 5 types of attention and apply them to activities of daily living with >80% accuracy and fading cues. Goal Status: New Goal Goal# : STG2: Pt will perform with >90% accuracy on visual scanning tasks and fading cues. Goal Status: New Goal Goal # : STG3: Pt will complete weekly HEP assignments and return them to her follow-up sessions. Goal Status: New Goal Recommended Referrals to be Discussed with Primary Care Provider: Vision Evaluation Other: See Comment Recommend vision evaluation to rule-out optic v. cortical vision deficits as evidence on subtests involving visual-spatial/constructional demands. Patient Education: Completed: Yes Patient/Caregiver Education: Described Results of Evaluation Patient expressed understanding of evaluation Patient agrees with goals and treatment plan Patient requires further education on strategies Comments/Barriers to Learning: Digital Production Artist Clinican/Clinical Fellow: No Supervisory Statement: N/A Speech Language Pathologist: Zhang Don M.A., CCC-TRANSPORTATION MANAGER
== END 2023-05-18 12:45 | disposition still patient (30) ==
LOC: HO.SH 09:18
PROVIDERS: Visit Provider Psychiatry & Neurology Neurology
DX: R47.89 Other speech disturbances (principal)

== ENCOUNTER 2023-05-11 08:47 | Outpatient (REF) | payer MEDICARE, SELFPAY ==
--- NOTE | ~2023-05-11 | MR_ITS ---
EXAMINATION: MR BRAIN WITHOUT CONTRAST CLINICAL INFORMATION: Other speech disturbances. COMPARISON: None available. TECHNIQUE: Multiplanar, multisequence MR imaging was performed through the brain without the use of intravenous gadolinium. Additional high-resolution anatomic imaging was performed through the brain and images were submitted for post processing including auto-segmentation and volumetric analysis. FINDINGS: There is no acute infarction, mass, hemorrhage, or extra-axial collection. . There is a moderate degree of diffuse brain parenchymal volume loss is commensurate prominence of ventricles and sulci. Mild to moderate foci of T2/FLAIR hyperintensity are seen within the white matter, typical of chronic microangiopathy. The sella is partially empty. The flow voids of the major intracranial arteries appear intact. The bones and extracranial soft tissues are unremarkable. There is polypoid mucosal thickening completely opacifying the left maxillary sinus and portions of the left ethmoid. Baseline NeuroQuant morphometric assessment of the brain was performed. Hippocampal volumes have an age-adjusted normative percentile of 44%. The lateral ventricles have a normative percentile of 62%, and the inferior lateral ventricles have a normative percentile of 80%. MR/MR brain wo con w neuroquant IMPRESSION: The baseline morphometric analysis demonstrates normal age adjusted relative volumes with no evidence to support neurodegeneration. No acute infarction, hemorrhage, mass, or extra-axial collection. Subjective impression of moderate degree of diffuse brain parenchymal volume loss. Polypoid mucosal thickening opacifies the left ostiomeatal complex.
== END 2023-05-11 08:48 | disposition home or self-care (01) ==
LOC: HO.MRI 08:47
PROVIDERS: PCP Internal Medicine; Visit Provider Psychiatry & Neurology Neurology
DX: R47.89 Other speech disturbances (principal); R41.3 Other amnesia
CPT/HCPCS: 70551; 76377

== ENCOUNTER 2023-06-16 09:25 | Outpatient (AMB) | payer MEDICARE, SELFPAY ==
[2023-06-16 09:27] VITALS: BP 138/88; PULSE 73; BMI 28.9
--- NOTE | 2023-06-16 09:27 | A.OFFVIS_ITS ---
Intake Vital Signs 06/16/23 09:27 Height 5 ft 2 in Weight 158 lb 4.67 oz BMI 28.9 BP 138/88 Blood Pressure Location Lt brachial Position Sitting Pulse 73 Intake Visit Reasons: Colonoscopy Screening 3yrs Intake Note: Patient referred by pcp Dr. White for colonoscopy screening. Last colonoscopy @ [facility] in 2021. Patient denies constipation, diarrhea. Antisubmarine Weapons Officer Required: No Accompanied by: Self / Same As Patient Allergies No Known Allergies Allergy (Verified 06/16/23 09:28) HPI Colonoscopy Screening 3yrs HPI Details Assessment & Plan (1) Tubular adenoma of colon: Comment: 1 partially removed due to location so repeat colonoscopy is needed last procedure was 03/2019 and 1 year repeat as well as recommended per Dr. Contreras Code(s): D12.6 - Benign neoplasm of colon, unspecified Category: Medical Plan: Mrs. Cisneros says she has been well over the past year. The only new information she has the added to her medical history is that her calcium is been running high (normal PTH) and she will be seeing an plumber gasfitter to have this early checked. She asks me why she would have to go would plumber gasfitter and I explained to her that there probably checking for hyperparathyroidism which she does not necessarily have but her primary is likely being thorough. We quickly reviewed the prep and the procedure which she remembers quite well and she is agreeable to the repeat colonoscopy. She denies any new problems with anesthesia or sedation and there were none in the past. She denies any cardiac or respiratory problems. COLONOSCOPY 04/14/20 Terminal Ileum: Not evaluated Cecum: Two 1 to 2 cms non-bleeding AVMs. Scar in the cecum with adjacent ellie ink tattoo (likely site of past polypectomy) with ? 4-5 mm polyp removed with a cold bx. Ascending Colon: Two 3-4 mm sessile polyps removed with a cold bx. Transverse Colon: Normal Descending Colon: Moderate diverticulosis Sigmoid Colon: A12 - 15 mm sessile polyp at 30 cms removed with a hot snare (polyp was at a distance of 60 cms from the anal verge during intubation). A 12-15 mm sessile polyp at 20 cms removed with a hot snare. Moderate diverticulosis Rectum: Multiple 5-7 mm diminutive polyps on retroflexed exam - one was biopsied. Ano-rectum: Inflamed hypertrophied anal papilla. Moderate internal hemorrhoids Colon preparation: Good after some irrigation Impression and Post Procedure Diagnosis: Colonoscopy Findings: Five polyps removed Moderate diverticulosis seen in the left colon Moderate hemorrhoids and an inflamed hypertrophied anal papilla on retroflexed exam. Plan: Await pathology results Patient has an appointment on 04/27/20 in the [facility] with Zaria Mcdonald NP . Repeat Colonoscopy interval based on path results - in 3 years if polyps are adenomatous and due to a hx of adenomatous colon polyps. * BIOPSY A. Colon, sigmoid at 30 cm, polypectomy: Hyperplastic mucosal polyp. B. Colon, ascending, polypectomy: Fragments of tubular adenoma; no high grade dysplasia or carcinoma seen. C. Cecum, polypectomy site, biopsy: Colonic mucosa within normal limits; no residual polyp seen. D. Colon, sigmoid, polypectomy: Hyperplastic mucosal polyp. E. Colon, sigmoid at 20 cm, polypectomy: Hyperplastic mucosal polyp. F. Rectum, polypectomy: Hyperplastic mucosal polyp. TODAY'S VISIT The procedure from 2019 should be repeated in 3 years due to the finding of a tubular adenoma that was sessile and quite large. The procedure was well tole rated. Apparently she had bleeding and anemia had double balloon enteroscopy performed at another hospital recently that showed AVMs that cauterized. This was at [facility], but full records/labs are not yet available. Will recheck her CBC to be safe. Her afib and cardiomyopathyt are now well controlled with resolution of the anemia, she denies any respiratory problems. There are no prior problems with anesthesia or sedation. No ID problems. Return office visit after the procedure. [facility] Medical History Memory change Word finding difficulty Hemorrhage of gastrointestinal tract Anemia due to gastrointestinal blood loss Paroxysmal atrial fibrillation Bilateral carotid bruits Intermittent lightheadedness Dyspnea on minimal exertion Heart murmur Thyroid nodule Type 2 diabetes mellitus without complication, with no history of insulin use Primary hyperparathyroidism Dyslipidemia (high LDL; low HDL) HTN (hypertension) Osteopenia Vitamin D deficiency Hyperparathyroidism Background diabetic retinopathy of right eye determined by examination Surgical History Hx of esophagogastroduodenoscopy Hx of cataract surgery Hx of total thyroidectomy Hx of cholecystectomy Hx of hysterectomy Hx of colonoscopy Family History Father Hypertension Diabetes mellitus Heart problem Congestive heart failure Carotid artery narrowing Mother Hypertension Diabetes mellitus Osteoporosis Colon polyps Social History Housing: House Alcohol intake: current Alcohol intake frequency: holidays/special occasions only Patient Tobacco Use Status: Former Tobacco user Quit Date: 2012 Smoked: 50 +/- e-Cigarette/Vaping Use: Never Used service: No Current occupational status: retired Cognitive needs: No Hearing needs: No Vision needs: Yes Review of Systems Const Denies fatigue, Denies fever(s), Denies night sweats, Denies poor appetite and Denies weight loss ENT Reports Normal hearing present, Denies dental pain, Denies dysphagia, Denies hearing loss, Denies mouth pain, Denies odynophagia, Denies throat swelling, Denies tongue swelling and Reports other (Dentition adequate) Card Reports no additional complaints Resp Reports no additional complaints GI Details: Denies abdominal pain, Denies melena, Denies bloating, Denies hematochezia, Denies constipation, Denies GI cramping, Denies dysphagia, Denies excessive flatus, Denies early satiety, Denies heartburn, Denies diarrhea, Denies nausea, Denies odynophagia, Denies vomiting and Denies hematemesis Skin/Breast Denies pruritus, Denies lesions, Denies rash and Denies jaundice Neuro Reports Normal hearing present and Denies Abnormal speech present Endo Denies fatigue Aller/Immun Denies throat swelling and Denies tongue swelling Physical Exam Vital Signs: Last Vital Signs Pulse 73 06/16/23 09:27 BP 138/88 06/16/23 09:27 BMI result Body Mass Index 28.9 Const General: cooperative, no acute distress, well developed and well groomed Nutritional Appearance: average body habitus and well nourished Orientation/consciousness: oriented to person, oriented to place and oriented to time Limitations: No language barrier HEENT Head: Yes normocephalic and Yes atraumatic Eyes General: appearance normal, both eyes and all related structures Pupils: Equal, round and reactive pupils present Neck Neck: Yes normal visual inspection and Yes no lymphadenopathy Thyroid: Thyroid normal Resp Effort & Inspection: normal respiratory effort and able to speak in complete sentences Auscultation: clear to auscultation bilaterally Cardio Rate: regular rate Rhythm: regular rhythm Heart sounds: Normal, physiologic split S2 sound present Peripheral pulses: radial pulses present and posterior tibial pulses present GI Inspection: No distended and No Abdominal panniculus present Palpation (GI): Soft to palpation, nontender, no guarding, not rigid and No hepatosplenomegaly present Percussion: Yes normal to percussion Auscultation: normal bowel sounds Rectal Exam - Female: deferred Skin General skin exam: no rashes or lesions noted, turgor normal, skin not dry, no jaundice, No spider nevi and no striae Rashes: no rashes Nails: normal Neuro General: oriented to person, oriented to place and oriented to time Cranial nerves: Yes Equal, round and reactive pupils present and Yes Normal hearing present Speech: No Abnormal speech present Extrem General: Yes normal to inspection, No clubbing, No cyanosis and No edema Psych Appearance: grossly normal and well kempt Mental Status: mental status grossly normal Speech and movement: Normal speech and movement present Affect: normal affect Attitude: cooperative Thought process: Normal thought process present and not confabulating Thought content: Normal thought content present Insight: Fair insight present (Psych) Judgement: Fair judgement present (Psych) Assessment & Plan Assessment & Plan (1) Hemorrhage of gastrointestinal tract: Code(s): K92.2 - Gastrointestinal hemorrhage, unspecified (2) Tubular adenoma of colon: Comment: Scope 2019 partially removed large polyp repeated 2020 multiple polyps mostly hyperplastic but a few TA is and the prior site were inspected repeat in 3 years. Code(s): D12.6 - Benign neoplasm of colon, unspecified (3) AVM (arteriovenous malformation) of colon: Comment: Discovered on scope 2020 she appears to be asymptomatic Code(s): K55.20 - Angiodysplasia of colon without hemorrhage (4) Paroxysmal atrial fibrillation: Code(s): I48.0 - Paroxysmal atrial fibrillation (5) Cardiomyopathy: Code(s): I42.9 - Cardiomyopathy, unspecified Plan The procedure from 2019 should be repeated in 3 years due to the finding of a tubular adenoma that was sessile and quite large. The procedure was well tolerated. Apparently she had bleeding and anemia had double balloon enteroscopy performed at another hospital recently that showed AVMs that cauterized. This was at [facility], but full records/labs are not yet available. Will recheck her CBC to be safe. Her afib and cardiomyopathyt are now well controlled with resolution of the anemia, she denies any respiratory problems. There are no prior problems with anesthesia or sedation. No ID problems. Return office visit after the procedure. Orders: Orders Complete Blood Count Auto Diff 06/19/23 K92.2 - Gastrointestinal hemorrhage, unspecified Colonoscopy - GI Use Only 06/16/23 D12.6 - Benign neoplasm of colon, unspecified, K55.20 - Angiodysplasia of colon without hemorrhage, I48.0 - Paroxysmal atrial fibrillation, K92.2 - Gastrointestinal hemorrhage, unspecified, I42.9 - Cardiomyopathy, unspecified Medications: New peg 3350-electrolytes 236-22.74-6.74 -5.86 gram (Golytely) until fecal effluent is clear; do not exceed a total volume of 2,000 mL 240 mL PO Q10M 4,000 mL 0RF 1 day Z12.11 - Encounter for screening for malignant neoplasm of colon bisacodyl (Dulcolax (bisacodyl)) 10 mg (2 x 5 mg) PO BEDTIME 4 tabs 0RF 2 days Coding Level of Care Code New Pt Level 3 (45975) Diagnoses Hemorrhage of gastrointestinal tract K92.2 Tubular adenoma of colon D12.6 AVM (arteriovenous malformation) of colon K55.20 Paroxysmal atrial fibrillation I48.0 Cardiomyopathy I42.9
== END 2023-06-16 09:56 | disposition home or self-care (01) ==
PROVIDERS: PCP Internal Medicine; Visit Provider Nurse Practitioner
DX: K92.2 Gastrointestinal hemorrhage, unspecified (principal); D12.6 Benign neoplasm of colon, unspecified; K55.20 Angiodysplasia of colon without hemorrhage; I48.0 Paroxysmal atrial fibrillation; I42.9 Cardiomyopathy, unspecified
CPT/HCPCS: 99203

== ENCOUNTER → 2023-06-16 09:25 | Outpatient (BNVA) | payer MEDICARE, SELFPAY | PROVIDERS: PCP Internal Medicine; Visit Provider Nurse Practitioner | DX: K92.2 Gastrointestinal hemorrhage, unspecified (principal); K55.20 Angiodysplasia of colon without hemorrhage; D12.6 Benign neoplasm of colon, unspecified; I48.0 Paroxysmal atrial fibrillation; I42.9 Cardiomyopathy, unspecified | CPT/HCPCS: 99202 ==

== ENCOUNTER 2023-06-19 08:07 | Outpatient (REF) | payer MEDICARE, SELFPAY ==
[2023-06-19 11:37] LABS: MANUAL DIFF FLAG NO
[2023-06-19 11:38] LABS: Basophils Absolute Auto 0.1 X10*3/uL (0.0-0.2); Eosinophils Absolute Auto 0.3 X10*3/uL (0.0-0.4); Eosinophils Percent Auto 3.2 % (0-4); Hematocrit 36.8 % (37.0-47.0); Hemoglobin 12.2 g/dl (12.0-16.0); Imm Gran Abs Auto 0.05 X10*3/uL (0.00-0.03); Imm Gran Pct Auto 0.6 % (0.0-0.4); Lymphocytes Absolute Auto 1.9 X10*3/uL (1.2-4.9); Lymphocytes Percent Auto 21.6 % (20-40); Mean Corpuscular HGB Conc 33.2 g/dl (31.0-35.0); Mean Corpuscular Volume 87.4 fL (80.0-98.0); Mean Platelet Volume 10.1 fL (9.4-12.3); Monocytes Absolute Auto 0.9 X10*3/uL (0.1-1.2); Neutrophils Absolute Auto 5.7 x10*3/uL (2.0-8.3); Neutrophils Percent Auto 63.6 % (45-73); Platelet Count 380 X10*3/uL (160-400); Red Blood Count 4.21 X10*6/uL (4.20-5.50); Red Cell Distribution Width 13.4 % (11.0-16.0)
== END 2023-06-19 08:08 | disposition home or self-care (01) ==
LOC: HO.HMGCLDS 08:07
PROVIDERS: PCP Internal Medicine; Visit Provider Nurse Practitioner
DX: K92.2 Gastrointestinal hemorrhage, unspecified (principal)
CPT/HCPCS: 36415; 85025

== ENCOUNTER 2023-08-03 08:30 | Outpatient (REF) | payer MEDICARE, SELFPAY ==
[2023-08-03 10:15] LABS: MANUAL DIFF FLAG NO
[2023-08-03 10:26] LABS: Basophils Absolute Auto 0.1 X10*3/uL (0.0-0.2); Eosinophils Absolute Auto 0.2 X10*3/uL (0.0-0.4); Eosinophils Percent Auto 2.6 % (0-4); Hematocrit 36.2 % (37.0-47.0); Hemoglobin 11.7 g/dl (12.0-16.0); Imm Gran Abs Auto 0.05 X10*3/uL (0.00-0.03); Imm Gran Pct Auto 0.6 % (0.0-0.4); Lymphocytes Absolute Auto 2.2 X10*3/uL (1.2-4.9); Lymphocytes Percent Auto 24.5 % (20-40); Mean Corpuscular HGB Conc 32.3 g/dl (31.0-35.0); Mean Corpuscular Hemoglobin 28.1 pg (27.0-33.0); Monocytes Absolute Auto 0.8 X10*3/uL (0.1-1.2); Monocytes Percent Auto 9.2 % (2-11); Neutrophils Absolute Auto 5.5 x10*3/uL (2.0-8.3); Neutrophils Percent Auto 62.1 % (45-73); Platelet Count 400 X10*3/uL (160-400); Red Blood Count 4.16 X10*6/uL (4.20-5.50); Red Cell Distribution Width 13.7 % (11.0-16.0); White Blood Count 8.9 X10*3/uL (4.8-10.8)
[2023-08-03 11:00] LABS: Estimated Average Glucose 134 mg/dL; Hemoglobin A1c % 6.3 % (<6.0)
[2023-08-03 11:05] LABS: Alanine Aminotransferase 28 U/L (0-31); Aspartate Amino Transferase 29 U/L (5-31); Cholesterol 157 mg/dL (<200); HDL Cholesterol 62 mg/dL (>40); LDL Cholesterol Calculated 68 mg/dL (<100); Triglycerides 139 mg/dL (<150)
[2023-08-03 11:11] LABS: Creatinine Urine 49.76 mg/dL
[2023-08-03 11:33] LABS: Vitamin D 25-OH Total 29.4 ng/mL (>30)
== END 2023-08-03 08:31 | disposition home or self-care (01) ==
LOC: HO.HMGCLDS 08:30
PROVIDERS: PCP Internal Medicine; Visit Provider Internal Medicine
DX: K92.2 Gastrointestinal hemorrhage, unspecified (principal); D50.0 Iron deficiency anemia secondary to blood loss (chronic); E11.9 Type 2 diabetes mellitus without complications; E55.9 Vitamin D deficiency, unspecified; E78.5 Hyperlipidemia, unspecified; I10 Essential (primary) hypertension
CPT/HCPCS: 36415; 80061; 82043; 82306; 82570; 83036; 84450; 84460; 85025

== ENCOUNTER 2023-08-07 08:22 | Outpatient (AMB) | payer MEDICARE, SELFPAY ==
--- NOTE | 2023-08-07 08:25 | A.OFFPC_ITS ---
Vital Signs 08/07/23 08:33 Height 5 ft 2 in Weight 158 lb BMI 28.9 BP 130/72 Blood Pressure Location Lt brachial Position Sitting Pulse 76 Pulse Source Pulse Oximeter Pulse Oximetry (%) 99 Oxygen Delivery Method Room Air Intake Visit Reasons: Annual PE/covered Intake Note: Pt is here today for her PE: mammogram 07/01/20, bone density scan 06/05/20, colonoscopy 04/02/22 Allergies No Known Allergies Allergy (Verified 08/07/23 08:55) Medication List - Last Reconciled 08/07/23 by Sasha White MD blood sugar diagnostic ([employer] Ultra Test strips) test blood sugars once daily citalopram 10 mg PO DAILY ferrous sulfate 325 mg PO DAILY lancets ([employer]ier DiagnosticsTouch Delica Lancets) test blood sugar once daily metformin 500 mg PO BID metoprolol succinate ER 50 mg PO DAILY simvastatin 20 mg PO Q2D 3 months Tobacco use date assessed: 08/07/23 Fall risk assessment: 1 Fall in past year Last assessed Fall Risk: 08/07/23 Dental Screening Dental Screen Date: 08/07/23 Did you have a dental visit in the last 12 months?: No Was dental information given to patient?: No HPI Annual PE/covered HPI Details 78-year-old lady with diabetes mellitus, hyperlipidemia, history of adenomatous polyp and AV malformations of colon status post cauterization during a double balloon enteroscopy procedure done 05/02/2022, has osteopenia, hypertension, atherosclerotic cardiovascular disease, here today for her physical exam. She is due now for her screening mammogram and bone density scan, last done in 2020, up-to-date with her screening colonoscopy done in 2021. His has history of severe anemia due to bleeding AV malformations in her colon, has had several transfusion of packed RBC. Has been feeling better, with no increased fatigue, no shortness of breath, no chest pain or lightheadedness reported. She is currently being followed by Neurology, for problems with memory and history of word-finding difficulty. Up-to-date with her diabetes retinopathy screening, goes to [facility], last seen 07/17/2023 with no retinopathy seen. Has history of stool hyperparathyroidism status post surgical removal, with normalization of serum calcium level seen. 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 Paroxysmal atrial fibrillation Intermittent lightheadedness Thyroid nodule Type 2 diabetes mellitus without complication, with no history of insulin use Primary hyperparathyroidism Dyslipidemia (high LDL; low HDL) HTN (hypertension) Osteopenia Vitamin D deficiency Surgical History Hx of esophagogastroduodenoscopy Hx of cataract surgery Hx of total thyroidectomy Hx of cholecystectomy Hx of hysterectomy Hx of colonoscopy Family History Father Hypertension Diabetes mellitus Heart problem Congestive heart failure Carotid artery narrowing Mother Hypertension Diabetes mellitus Osteoporosis Colon polyps Social History Housing: House Alcohol intake: current Alcohol intake frequency: holidays/special occasions only Patient Tobacco Use Status: Former Tobacco user Quit Date: 2012 Smoked: 50 +/- e-Cigarette/Vaping Use: Never Used service: No Current occupational status: retired Cognitive needs: No Hearing needs: No Vision needs: Yes Questionnaire PHQ-9 Over the last 2 weeks, how often have you been bothered by any of the following problems? 1. Little interest or pleasure in doing things: several days 2. Feeling down, depressed, or hopeless: not at all 3. Trouble falling or staying asleep, or sleeping too much: several days 4. Feeling tired or having little energy: several days 5. Poor appetite or overeating: several days 6. Feeling bad about yourself - or that you are a failure or have let yourself or your family down: not at all 7. Trouble concentrating on things, such as reading the newspaper or watching television: more than half the days 8. Moving or speaking so slowly that other people could have noticed. Or the opposite - being so fidgety or restless that you have been moving around a lot more than usual: not at all 9. Thoughts that you would be better off or of hurting yourself in some way: not at all Total score: 6 Depression Screening Interpretation: Positive (Currently stable controlled on citalopram 10 mg once a day , started by her neurologist) Depression Screening Follow-up: Existing condition and In treatment Depression Screening Done: Yes Source: Developed by Drs. Buck Caballero, Aron Villarreal and colleagues, with an educational farzad from [employer]. Thrive Questionnaire Date Thrive assessed: 08/07/23 I am a: Patient What is your living situation today?: I have a steady place to live Within the past 12 months, did the food you bought not last and you didn't have the money to get more?: Never true Within the past 12 months, did you worry whether your food would run out before you got money to buy more?: Never true Do you have trouble paying for medicines?: No Do you have trouble getting transportation to medical appointments?: No Do you have trouble paying your heating and electricity bill?: No Do you have trouble taking care of your child, family member or friend?: No Do you have trouble with day-to-day activities such as bathing, preparing meals, shopping, managing finances, etc.?: No Are you currently unemployed and looking for a job?: No Are you interested in more education?: No THRIVE Score: 0 AUDIT C Alcohol Use Questionnaire (AUDIT-C) 1. How often do you have a drink containing alcohol?: Never Total Score: 0 DAVID-7 AMB Questionnaire DAVID-7 Date DAVID - 7 assessed: 08/07/23 Feeling nervous, anxious, or on edge: 1 = Several days Not being able to stop or control worryin = Not at all Worrying too much about different things: 0 = Not at all Trouble relaxin = Not at all Being so restless that it is hard to sit still: 0 = Not at all Becoming easily annoyed or irritable: 1 = Several days Feeling afraid as if something awful might happen: 0 = Not at all Total DAVID-7 score (0-4 normal; 5-9 mild; 10-14 moderate; 15-21 severe): 2 Source: Developed by Drs. Buck Caballero, Myra Littlejohn, Aron Brumfield and colleagues, with an educational farzad from [employer]. DAVID-7 Assessment Billing DAVID-7 Assessment Tool: DAVID-7 Assessment 26181 Review of Systems Const Denies body aches, Denies fatigue, Denies fever(s), Denies headache(s) and Denies weakness Eyes Details: Up-to-date with her diabetes retinopathy screening, seen by [facility] earlier this year Denies change in vision ENT Denies dizziness and Denies headache(s) Card Denies chest pain, Denies syncope, Denies rapid heart rate, Denies edema, Denies lightheadedness, Denies palpitations and Denies dyspnea Resp Denies cough and Denies dyspnea GI Denies abdominal pain, Denies melena, Denies bloating, Denies hematochezia, Denies change in bowel habits and Denies heartburn Reports no additional complaints Musc Denies abnormal gait, Denies muscle weakness, Denies numbness and Denies tingling Skin/Breast Denies breast pain, Denies breast mass and Denies rash Neuro Denies abnormal gait, Denies dizziness, Denies syncope, Denies headache(s), Denies numbness, Denies tingling and Denies weakness Psych Reports no additional complaints Endo Denies fatigue, Denies polyphagia, Denies polydipsia and Denies palpitations Dong/Lymph Reports no additional complaints Aller/Immun Reports no additional complaints Physical exam (Primary Care) Vital Signs: Last Vital Signs Pulse 76 08/07/23 08:33 BP 130/72 08/07/23 08:33 Pulse Ox 99 08/07/23 08:33 Oxygen Delivery Method Room Air 08/07/23 08:33 BMI result Body Mass Index 28.9 Tobacco/Smoking Status: Tobacco use Status Tobacco use date assessed 08/07/23 08/07/23 08:29 Patient Tobacco Use Status Former Tobacco user 08/07/23 08:28 e-Cigarette/Vaping Use Never Used 08/07/23 08:28 PHQ-9: PHQ-9 Score PHQ-9: Total score 6 08/07/23 09:21 Depression Screening Interpretation: Positive (Currently stable controlled on citalopram 10 mg once a day , started by her neurologist) Depression Screening Follow-up: Existing condition and In treatment Thrive Assessment: Date of Thrive Assessment Date Thrive assessed 08/07/23 08/07/23 08:33 Const Other: Alert elderly female, no acute cardiorespiratory distress, ambulatory with normal gait Orientation/consciousness: patient oriented x3 HENMT Face and sinus: Yes face symmetric Mouth: Normal oral and palatal mucosa present and moist mucous membranes Eyes General: appearance normal, both eyes and all related structures Neck Other: Supple, no lymphadenopathy, full range of motion Resp Effort & Inspection: normal respiratory effort and able to speak in complete sentences Auscultation: clear to auscultation bilaterally Cardio Other: S1-S2 present regular rate and rhythm GI Other: Normal bowel sounds, soft, nontender, no mass palpated General: Yes no CVA tenderness Back/Spine/Pelvis Back: no CVA tenderness and No back tenderness Neuro Other: No speech abnormality noted on today's visit General: patient oriented x3, gait normal, tone normal, moves all extremities, Normal light touch and pain sensation, no focal motor deficits and CN's II-XI intact bilaterally Extrem General: Yes full ROM, Yes no joint enlargement, Yes no pedal edema, Yes no calf tenderness and Yes normal gait Psych Appearance: grossly normal Mental Status: mental status grossly normal Speech and movement: Normal speech and movement present Affect: normal affect Attitude: cooperative Thought process: Normal thought process present Results Reviewed Results Reviewed: Name: Katelynn Cisneros Age/Sex: 78/F : 1945 Unit#: [id number] Attend Dr: Sasha White MD Re08/03/23 Status: DEP REF Location: [facility] Disch: SPEC : [id number] JOE: 08/03/23 STATUS: COMP REQ : [id number] RECD: 08/03/23-[address]: Sasha White MD COMP: 08/03/23 ENTERED: 08/03/[address]: ORDERED: CBC Auto Diff Test Result Flag Reference WBC 8.9 4.8-10.8 X10*3/uL RBC 4.16 L 4.20-5.50 X10*6/uL HGB 11.7 L 12.0-16.0 g/dl HCT 36.2 L 37.0-47.0 % MCV 87.0 80.0-98.0 fL MCH 28.1 27.0-33.0 pg MCHC 32.3 31.0-35.0 g/dl RDW 13.7 11.0-16.0 % PLT 400 160-400 X10*3/uL MPV 10.0 9.4-12.3 fL Neut Pct Auto 62.1 45-73 % ImGran Pct Auto 0.6 H 0.0-0.4 % Lymp Pct Auto 24.5 20-40 % Story Pct Auto 9.2 2-11 % Eos Pct Auto 2.6 0-4 % Baso Pct Auto 1.0 0-2 % NRBC Pct Auto 0.0 0.0-0.2 /100WBC ANC Neut Abs # 5.5 2.0-8.3 x10*3/uL ImGran Abs Auto 0.05 H 0.00-0.03 X10*3/uL Lymph Abs Auto 2.2 1.2-4.9 X10*3/uL Story Abs Auto 0.8 0.1-1.2 X10*3/uL Eos Abs Auto 0.2 0.0-0.4 X10*3/uL Baso Abs Auto 0.1 0.0-0.2 X10*3/uL NRBC Abs Auto 0.000 0.0-0.012 X10*3/uL Name: Katelynn Cisneros Age/Sex: 78/F [facility] 1945 [id number] Unit#: [id number] Attend Dr: Sasha White MD Re08/03/23 Status: DEP REF Location: [facility] Disch: SPEC : [id number] JOE: 08/03/23 STATUS: COMP REQ : [id number] RECD: 08/03/[address] [facility] [address]: Sasha White MD COMP: 08/03/23 ENTERED: 08/03/[address] [facility] [address]: ORDERED: Hgb A1c Test Result Flag Reference A1c % 6.3 H <6.0 % Hemoglobin A1C Reference Range Adults: 4.8 - 6.0 % Non diabetic: < 6.0 % Goal: < 7.0 % Additional Action Suggested: > 8.0 % Note: Hemoglobin A1c results are invalid for patients with abnormal amounts of HbF. Blood transfusions may impact the HbA1c concentration in the patient sample. Est. Avg. Gluc 134 mg/dL ENTERED: 08/03/23 LANIE SR: ORDERED: AST, ALT, Lipid Panel, Vitamin D 25-OH Test Result Flag Reference AST (GOT) 29 5-31 U/L ALT (GPT) 28 0-31 U/L Triglyceride 139 <150 mg/dL Desirable Triglyceride: less than 150 mg/dL Borderline High Triglyceride 150-199 mg/dL High Triglyceride: 200-499 mg/dL Very High Triglyceride: greater than or equal to 5OO mg/dL Cholesterol 157 <200 mg/dL Desirable Cholesterol: less than 200 mg/dL Borderline High Cholesterol: 200-239 mg/dL High Cholesterol: greater than 239 mg/dL LDL Calculated 68 <100 mg/dL Desirable LDL: less than 100 mg/dL Near Optimal/Above Optimal LDL: 110-129 mg/dL Borderline High LDL: 130-159 mg/dL High LDL: 160-189 mg/dL Very High LDL: greater than or equal to 190 mg/dL HDL 62 >40 mg/dL Desirable HDL: greater than 40 mg/dL Note: This HDL assay may give artificially low results in patients with liver disease. Vit D 25-OH Tot 29.4 L >30 ng/mL Health Based Reference Values* < 20 ng/mL Deficient 20-30 ng/mL Insufficient > 30 ng/mL Sufficient Laboratory Tests 08/03/23 08:33 Urine Creatinine 49.76 Urine Microalbumin 10.0 Microalb/Creat Ratio 20.0 Assessment and Plan Assessment & Plan (1) Annual visit for general adult medical examination with abnormal findings: Code(s): Z00.01 - Encounter for general adult medical examination with abnormal findings Plan: Will check appropriate labs. Recommended dental visit every 6 months and regular eye exams, at least every 2 years. Take adequate calcium in diet and vitamin-D 3 at 2000 IU per cap once a day, in addition to weight-bearing exercises to help maintain good muscle tone and weight control. Instructed to do self-breast exam, and continue to get yearly mammogram, patient states she will to schedule it on her own, repeat bone density scan also ordered. She is up-to-date with her vaccination its including COVID booster, and also is up-to-date with her screening colonoscopy (2) Word finding difficulty: Code(s): R47.89 - Other speech disturbances Plan: Followed by Neurology (3) Thyroid nodule: Comment: Cystic, 0.8 cm in right thyroid lobe, currently asymptomatic Code(s): E04.1 - Nontoxic single thyroid nodule Plan: Subcentimeter nodule seen in the right lobe, will continue to monitor, patient currently asymptomatic (4) Type 2 diabetes mellitus without complication, with no history of insulin use: Code(s): E11.9 - Type 2 diabetes mellitus without complications Plan: Latest hemoglobin A1c is 6.3%, continued on metformin 500 mg 1 tablet twice a (5) Vitamin D deficiency: Code(s): E55.9 - Vitamin D deficiency, unspecified Plan: Vitamin-D level low normal, advised to continue taking vitamin-D 3 supplements at 50 mcg daily (6) Dyslipidemia (high LDL; low HDL): Code(s): E78.5 - Hyperlipidemia, unspecified Plan: Fasting lipids are within normal limits, continue with simvastatin 20 mg 1 tablet every other day (7) HTN (hypertension), benign: Code(s): I10 - Essential (primary) hypertension Plan: Blood pressure improving, now at 130/72. Continue with current medication. Reinforced importance of following a low sodium diet, getting regular exercise, and lowering stress levels. (8) AVM (arteriovenous malformation) of colon: Comment: Discovered on 2020 she appears to be asymptomatic Code(s): K55.20 - Angiodysplasia of colon without hemorrhage Plan: Status post cauterized April 2022. 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 (10) Paroxysmal atrial fibrillation: Code(s): I48.0 - Paroxysmal atrial fibrillation Plan: As per Cardiology, this was has Isolated occurrence when she was severely anemic. No recurrences. Hence no clear indication for atrial fibrillation especially with GI bleed/severe anemia history. Orders: Orders XR DEXA axial skeleton 08/07/23 M85.80 - Other specified disorders of bone density and structure, unspecified site Medications: New cholecalciferol (vitamin D3) 50 mcg PO DAILY 90 caps 1RF Coding Level of Care Code Est Pt Prev Care >65y(68080) Diagnoses Annual visit for general adult medical examination with abnormal findings Z00.01 Word finding difficulty R47.89 Thyroid nodule E04.1 Type 2 diabetes mellitus without complication, with no history of insulin use E11.9 Vitamin D deficiency E55.9 Dyslipidemia (high LDL; low HDL) E78.5 HTN (hypertension), benign I10 AVM (arteriovenous malformation) of colon K55.20 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
[2023-08-07 08:33] VITALS: BP 130/72; PULSE 76; O2SAT 99; BMI 28.9
== END 2023-08-07 11:13 | disposition home or self-care (01) ==
PROVIDERS: PCP Internal Medicine; Visit Provider Internal Medicine
DX: Z00.00 Encounter for general adult medical examination without abnormal findings (principal); R47.89 Other speech disturbances; E11.9 Type 2 diabetes mellitus without complications; I48.0 Paroxysmal atrial fibrillation; E04.1 Nontoxic single thyroid nodule; E55.9 Vitamin D deficiency, unspecified; E78.5 Hyperlipidemia, unspecified; I10 Essential (primary) hypertension; K55.20 Angiodysplasia of colon without hemorrhage; D50.0 Iron deficiency anemia secondary to blood loss (chronic)
CPT/HCPCS: 99397

== ENCOUNTER 2023-08-21 11:30 | Outpatient (RCR) | payer MEDICARE, SELFPAY ==
--- NOTE | 2023-11-30 15:50 | MHC.SL.SOA ---
Referring Provider: Dr. Karely Pearce Reason for Referral: MCI v. Age-related Date of Plan of Treatment:05/04/23 Onset of Symptoms/Illness:05/04/23 Date Treatment Started:05/04/23 Medical Diagnosis:Speech Therapy Primary Speech Language Diagnosis:R41.841 Cognitive communication disorder Number of Authorized Visits Remainin Reason for Visit:Non-billable Event Subjective:This is an administrative discharge for Katelynn Cisneros. Maggi was initially evaluated on 05/04/23 and attended 12 visits with her last being 08/21/23. Her discharge visit needed to be cancelled, and was unable to be re-scheduled. Objective: The following goals were addressed during her treatment: STG1: Pt will identify the 5 types of attention and apply them to activities of daily living with >80% accuracy and fading cues. STG2: Pt will perform with >90% accuracy on visual scanning tasks and fading cues. STG3: Pt will complete weekly HEP assignments and return them to her follow-up sessions. Maggi additionally endorsed that she was happier and feeling better as a result of her treatment. Assessment:Millie was a dedicated participant in her treatment sessions and always completed her home education program. By the end of treatment she particularly enjoyed Sudoku puzzles. She also stated that she was actively working on plans to attending crafting and painting events at either her own, or local [facility]. Although Millie did not attend her final session, I am confident that she will continue to pursue cognitively stimulating tasks at home and in the community. Plan: Goal # : STG1: Pt will identify the 5 types of attention and apply them to activities of daily living with >80% accuracy and fading cues. Status of Goal: Goal Met Goal # : STG2: Pt will perform with >90% accuracy on visual scanning tasks and fading cues. Status of Goal: Goal Met Goal # : STG3: Pt will complete weekly HEP assignments and return them to her follow-up sessions. Status of Goal: Goal Met Seen by: Graduate/Clinical Fellow: No Supervisory Statement: f_Reg Query Last Value , [email or web address] Speech Language Pathologist: Zhang Don M.A., CCC-PEOPLESOFT HRMS DEVELOPER
== END 2023-12-01 09:11 | disposition home or self-care (01) ==
LOC: HO.SH 11:30
PROVIDERS: PCP Internal Medicine; Visit Provider Psychiatry & Neurology Neurology
DX: R41.841 Cognitive communication deficit (principal)
CPT/HCPCS: 92507

== ENCOUNTER 2023-08-29 08:02 | Outpatient (REF) | payer MEDICARE, SELFPAY ==
--- NOTE | ~2023-08-29 | MM_ITS ---
EXAMINATION: BONE DENSITOMETRY CLINICAL INDICATION: Other specified disorders of bone density. Hyperparathyroidism. COMPARISON: Previous BD dated 06/05/2020 and baseline BD dated 01/29/2009, spine and left hip; 06/05/2020, forearm radius 33%. TECHNIQUE: Using a [employer] DXA System (software version: 13.1) manufactured by [employer], dual-energy x-ray absorptiometry was performed of the lumbar spine, left hip and left forearm radius 33%. The images are of good technical quality. Summary results are attached. FINDINGS: LEFT FEMUR, NECK: Current: BMD 0.831 g/cm2, Z-score 0.4, T-score -1.5, osteopenia. Prior: BMD 0.818 g/cm2. Baseline: BMD 0.775 g/cm2. LEFT FEMUR, TOTAL: Current: BMD 0.778 g/cm2, Z-score -0.1, T-score -1.8, osteopenia, 3.2% decrease from previous, 5.5% decrease from baseline (<5% change is not significant). Prior: BMD 0.804 g/cm2. Baseline: BMD 0.823 g/cm2. AP SPINE L1-L4: Current: BMD 1.214 g/cm2, Z-score 1.9, T-score 0.3, normal, 3.2% decrease from previous, 4.0% increase from baseline (<5% change is not significant). Prior: BMD 1.254 g/cm2. Baseline: BMD 1.167 g/cm2. LEFT FOREARM RADIUS 33%: BMD 0.659 g/cm2, Z-score 0.0, T-score -2.5, osteoporosis, 6.9% decrease from baseline (<5% change is not significant). Baseline: BMD 0.708 g/cm2. IDENTIFIED RISK FACTORS: Menopause, hysterectomy, bilateral oophorectomy, height loss, hyperparathyroidism, osteoporosis. HISTORY OF FRACTURE: None listed. MEDICATIONS: Vitamin D. MM/XR DEXA appendicular skeleton IMPRESSION: 1. DIAGNOSIS: Osteoporosis based on the lowest T-score value of -2.5 in the forearm radius 33% applying World Health Organization criteria. 2. 10-YEAR FRACTURE RISK PREDICTION, FRAX: According to the guidelines, FRAX calculation should only be performed on patients in the osteopenia bone density category. Therefore, FRAX was not performed on this patient. 3. Treatment Recommendations: NOF guidelines recommend consideration for treatment in postmenopausal women and men age 50 and older presenting with the following: -A hip or vertebral (clinical or morphometric) fracture. -T-score less than or equal to -2.5 at the femoral neck or spine after appropriate evaluation to exclude secondary causes. -Low bone mass at the hip or spine and a 10-year fracture probability by FRAX of greater than or equal to 3% for hip fracture or greater than or equal to 20% for major osteoporotic fracture based on the [place] adapted WHO algorithm. 4. Other Recommendations: All treatment decisions require clinical judgment and consideration of individual patient factors, including patient preferences, comorbidities, previous drug use, risk factors not captured in the FRAX model (e.g. frailty, falls, vitamin D deficiency, increased bone turnover, interval significant decline in bone density) and possible under or overestimation of fracture risk by FRAX. Additional medical evaluation for secondary cause of low bone mineral density may be appropriate. FUTURE SCAN RECOMMENDATION: People with diagnosed cases of osteoporosis or at high risk for fracture should have regular bone mineral density tests. For patients eligible for Medicare, routine testing is allowed once every 2 years. The testing frequency can be increased to one year for patients who have rapidly progressing disease, those who are receiving or discontinuing medical therapy to restore bone mass, or have additional risk factors.
== END 2023-08-29 08:03 | disposition home or self-care (01) ==
LOC: HO.MAMMO 08:02
PROVIDERS: PCP Internal Medicine; Visit Provider Internal Medicine
DX: Z12.31 Encounter for screening mammogram for malignant neoplasm of breast (principal); Z13.820 Encounter for screening for osteoporosis; M85.80 Other specified disorders of bone density and structure, unspecified site; Z78.0 Asymptomatic menopausal state
CPT/HCPCS: 77063; 77067; 77081

== ENCOUNTER → 2023-08-29 08:15 | Outpatient (BNV) | payer MEDICARE, SELFPAY | PROVIDERS: PCP Internal Medicine; Visit Provider Radiology Diagnostic Radiology | DX: Z12.31 Encounter for screening mammogram for malignant neoplasm of breast (principal) | CPT/HCPCS: 77063; 77067 ==

== ENCOUNTER 2023-09-27 10:24 | Outpatient (AMB) | payer MEDICARE, SELFPAY ==
--- NOTE | 2023-09-27 10:32 | A.OFFVIS_ITS ---
Vital Signs 09/27/23 10:33 Height 5 ft 2 in Weight 161 lb BMI 29.4 BP 160/88 H Blood Pressure Location Rt brachial Position Sitting Respiration 16 Pulse 74 Pulse Source Pulse Oximeter Pulse Oximetry (%) 97 Oxygen Delivery Method Room Air Intake Visit Reasons: follow up Speech disturbances/Amnesia - LVM w/add Intake Note: Pt presents tot he office for a 6 month follow up for memory changes. 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 she is accompanied by her daughters .Her mood and memory have improved with citalopram she is motivated. 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 Paroxysmal atrial fibrillation Intermittent lightheadedness Thyroid nodule Type 2 diabetes mellitus without complication, with no history of insulin use Primary hyperparathyroidism Dyslipidemia (high LDL; low HDL) HTN (hypertension) Osteopenia Vitamin D deficiency Surgical History Hx of esophagogastroduodenoscopy Hx of cataract surgery Hx of total thyroidectomy Hx of cholecystectomy Hx of hysterectomy Hx of colonoscopy Family History Father Hypertension Diabetes mellitus Heart problem Congestive heart failure Carotid artery narrowing Mother Hypertension Diabetes mellitus Osteoporosis Colon polyps Social History Housing: House Alcohol intake: current Alcohol intake frequency: holidays/special occasions only Patient Tobacco Use Status: Former Tobacco user Years Smoked: 50 +/- e-Cigarette/Vaping Use: Never Used service: No Current occupational status: retired Cognitive needs: No Hearing needs: No Vision needs: Yes Review of Systems Neuro Reports Abnormal speech present Physical Exam Vital Signs: Last Vital Signs Pulse 74 09/27/23 10:33 Resp 16 09/27/23 10:33 BP 160/88 H 09/27/23 10:33 Pulse Ox 97 09/27/23 10:33 Oxygen Delivery Method Room Air 09/27/23 10:33 BMI result Body Mass Index 29.4 Const General: cooperative, healthy appearing and comfortable Nutritional Appearance: average body habitus Orientation/consciousness: patient oriented x3 Eyes Pupils: Equal, round and reactive pupils present Neuro General: patient oriented x3, tone normal, moves all extremities and no focal motor deficits Cranial nerves: Yes Facial sensation intact/muscles of mastication intact, Yes Equal, round and reactive pupils present, Yes Bilaterally intact EOM present, Yes Nystagmus not present, Yes Normal facial strength present and No Midline tongue present Cognition (Neuro): normal cognition Speech: Abnormal speech present Gait exam (Neuro): Normal gait present Motor exam (neuro): 5/5 motor strength present throughout Coordination: [id number] test normal Results Reviewed Results Reviewed: MRi Brain -baseline morphometric analysis demonstrates normal age adjusted relative volumes with no evidence to support neurodegeneration. No acute infarction, hemorrhage, mass, or extra-axial collection. Subjective impression of moderate degree of diffuse brain parenchymal volume loss. Polypoid mucosal thickening opacifies the left ostiomeatal complex. Assessment & Plan Assessment & Plan (1) Memory change: Comment: mood related Code(s): R41.3 - Other amnesia Category: Medical (2) Word finding difficulty: Code(s): R47.89 - Other speech disturbances Category: Medical Plan Continue Citalopram 10 mg qd for mood Speech therapy Coding Level of Care Code Est Pt Level 4 (97092) Diagnoses Memory change R41.3 Word finding difficulty R47.89
[2023-09-27 10:33] VITALS: BP 160/88; PULSE 74; RESP 16; O2SAT 97; BMI 29.4
== END 2023-09-27 10:49 | disposition home or self-care (01) ==
PROVIDERS: PCP Internal Medicine; Visit Provider Psychiatry & Neurology Neurology
DX: R41.3 Other amnesia (principal); R47.89 Other speech disturbances
CPT/HCPCS: 99214

== ENCOUNTER → 2023-09-27 10:24 | Outpatient (BNVA) | payer MEDICARE, SELFPAY | PROVIDERS: PCP Internal Medicine; Visit Provider Psychiatry & Neurology Neurology | DX: R41.3 Other amnesia (principal); R47.89 Other speech disturbances | CPT/HCPCS: 99212 ==

== ENCOUNTER 2023-11-10 10:17 | Day surgery (SDC) | payer MEDICARE, SELFPAY ==
--- NOTE | 2023-11-08 14:00 | HO.ANESPROP2 ---
HPI - Anesthesia Eval Consult details Narrative: 78yo F for Colonoscopy 1 x incident afib with severe anemia. No OAC. PMFSH Active Problems Active Problems: All Active Problems Memory change (Acute) Word finding difficulty (Acute) Hemorrhage of gastrointestinal tract (Acute) Cardiomyopathy (Acute) Anemia due to gastrointestinal blood loss (Acute) Paroxysmal atrial fibrillation (Acute) Atherosclerotic cardiovascular disease (Acute) Thyroid nodule (Acute) Type 2 diabetes mellitus without complication, with no history of insulin use (Acute) Vitamin D deficiency (Acute) Dyslipidemia (high LDL; low HDL) (Acute) AVM (arteriovenous malformation) of colon (Acute) Diverticulosis of colon (Acute) Tubular adenoma of colon (Acute) HTN (hypertension), benign (Acute) Osteopenia (Acute) Past Medical History Medical History AV (angiodysplasia malformation of colon) Memory change Word finding difficulty Anemia due to gastrointestinal blood loss Paroxysmal atrial fibrillation Intermittent lightheadedness Thyroid nodule Type 2 diabetes mellitus without complication, with no history of insulin use Primary hyperparathyroidism Dyslipidemia (high LDL; low HDL) HTN (hypertension) Osteopenia Vitamin D deficiency Family History Family History Father Hypertension Diabetes mellitus Heart problem Congestive heart failure Carotid artery narrowing Mother Hypertension Diabetes mellitus Osteoporosis Colon polyps Surgical History Surgical History Hx of esophagogastroduodenoscopy Hx of cataract surgery Hx of total thyroidectomy Hx of cholecystectomy Hx of hysterectomy Hx of colonoscopy Social History Social History Housing: House Alcohol intake: current Alcohol intake frequency: holidays/special occasions only Patient Tobacco Use Status: Former Tobacco user Years Smoked: 50 +/- e-Cigarette/Vaping Use: Never Used service: No Current occupational status: retired Cognitive needs: No Hearing needs: No Vision needs: Yes Meds Allergies Allergy/AdvReac Type Severity Reaction Status Date / Time No Known Allergies Allergy Verified 11/10/23 11:29 Exam Pertinent Lab Results Pertinent Lab Results: Laboratory Tests 08/03/23 08:35 08:33 WBC 8.9 Hgb 11.7 L Hct 36.2 L Plt Count 400 Narrative Narrative: Per 01/2023 cardiology office visit note: Coronary CT shows only mild to moderate CAD. Nothing hemodynamically significant. ECHO 2022 Conclusions: - 1. Normal LV systolic function with impaired relaxation filling pattern 2. Moderately dilated left atrium 3. Normal cardiac valvular Dopplers 4. Normal RV systolic pressure 5. No pericardial effusion Assessment and Plan Assessment Anesthesia Assessment: Chart Reviewed
[2023-11-10 11:30] VITALS: BMI 29.0
--- NOTE | 2023-11-10 11:30 | MHC.SHP ---
Pre-Procedural Eval Section A - 24 Hr Update-Section A only Date of Service: 11/10/23 Section B - Complete if H&P > 30 days Chief Complaint: Surveillance for colon polyps, anemia Relevant Family History (Specify if Yes): Yes Relevant Social History: Tobacco Use (Former smoker) Present Medications: see Short Stay Collaborative assessment Medical History: Significant History (Anemia due to gastrointestinal blood loss Paroxysmal atrial fibrillation Bilateral carotid bruits Intermittent lightheadedness Dyspnea on minimal exertion Heart murmur Thyroid nodule Type 2 diabetes mellitus without complication, with no history of insulin use Primary hyperparathyroidism Dyslipidemi) History of Previous Operations: Relevant previous surgery/procedure and date(s) (Hx of esophagogastroduodenoscopy Hx of cataract surgery Hx of total thyroidectomy Hx of cholecystectomy Hx of hysterectomy Hx of colonoscopy) Allergies: Allergies Allergy/AdvReac Type Severity Reaction Status Date / Time No Known Allergies Allergy Verified 11/10/23 11:29 Review of Systems Sugical H&P ROS: Negative: Constitution, Cardiovascular, Respiratory and Gastrointestinal Exam Surgical H&P Exam: Normal: Heart, Normal: Lungs, Normal: Extremities and Normal: Abdomen Plan Diagnosis/Plan: Unchanged I have reviewed the history and physical and performed a pertinent physical examination on my patient. No changes have occurred unless specified. Time Spent With Patient Time: Total time managing care of this patient today ____ minutes.
[2023-11-10 11:32] VITALS: BP 166/53; PULSE 58; RESP 15; TEMP 36.1; O2SAT 97
[2023-11-10] MEDS: Lactated Ringers 1,000 ML 100 ML IVCONT (11:42)
--- NOTE | 2023-11-10 11:46 | P.CONAN_ITS ---
[facility] Active Problems Active Problems: All Active Problems Memory change (Acute) Word finding difficulty (Acute) Hemorrhage of gastrointestinal tract (Acute) Cardiomyopathy (Acute) Anemia due to gastrointestinal blood loss (Acute) Paroxysmal atrial fibrillation (Acute) Atherosclerotic cardiovascular disease (Acute) Thyroid nodule (Acute) Type 2 diabetes mellitus without complication, with no history of insulin use (Acute) Vitamin D deficiency (Acute) Dyslipidemia (high LDL; low HDL) (Acute) AVM (arteriovenous malformation) of colon (Acute) Diverticulosis of colon (Acute) Tubular adenoma of colon (Acute) HTN (hypertension), benign (Acute) Osteopenia (Acute) Past Medical History Medical History AV (angiodysplasia malformation of colon) Memory change Word finding difficulty Anemia due to gastrointestinal blood loss Paroxysmal atrial fibrillation Intermittent lightheadedness Thyroid nodule Type 2 diabetes mellitus without complication, with no history of insulin use Primary hyperparathyroidism Dyslipidemia (high LDL; low HDL) HTN (hypertension) Osteopenia Vitamin D deficiency Functional capacity: independent ambulation Patient : No Family History Family History Father Hypertension Diabetes mellitus Heart problem Congestive heart failure Carotid artery narrowing Mother Hypertension Diabetes mellitus Osteoporosis Colon polyps Family history of problems with anesthesia: No Surgical History Surgical History Hx of esophagogastroduodenoscopy Hx of cataract surgery Hx of total thyroidectomy Hx of cholecystectomy Hx of hysterectomy Hx of colonoscopy History of Problems with Anesthesia: No Social History Social History Housing: House Alcohol intake: current Alcohol intake frequency: holidays/special occasions only Patient Tobacco Use Status: Former Tobacco user Years Smoked: 50 +/- e-Cigarette/Vaping Use: Never Used Use of substances other than those prescribed or required for medical reasons: No Are you DNR?: No Advance Directives: No Advance Directives Information Provided: Yes service: No Current occupational status: retired Cognitive needs: No Hearing needs: No Vision needs: Yes Meds Allergies Allergy/AdvReac Type Severity Reaction Status Date / Time No Known Allergies Allergy Verified 11/10/23 11:29 Active Medications: Current Medications Lactated Ringer's (Lr) 1,000 mls @ 100 mls/hr IVCONT .Q10H RENETTA Last Admin: 11/10/23 11:42 Dose: 100 mls/hr Exam Height,Weight and Vital Signs: Height 5 ft 2 in Weight 71.94 kg Last Vital Signs Temp 97.0 F 11/10/23 11:32 Pulse 58 11/10/23 11:32 Resp 15 11/10/23 11:32 BP 166/53 H 11/10/23 11:32 Pulse Ox 97 11/10/23 11:32 O2 Del Method Room Air 11/10/23 11:32 Airway Mallampati Class: III TM Dist: >3cm Neck ROM: Full Heart: RRR Lungs: CTA Assessment and Plan Assessment Anesthesia Assessment: Anesthesia Plan Discussed Final Anesthetic Review Family History of Problems with Anesthesia: No History of Problems with Anesthesia: No NPO: Yes ASA Class: III Final Preanesthetic Review: Meds/Allgs Chart Reviewed, Consent Obtained/Reviewed and Anes Risks/Benef Reviewed Patient Risk: Low Procedure Risk: Low Anesthetic Plan Anesthetic Plan: MAC: Disposition: Standard PACU
[2023-11-10 11:48] LABS: Glucose, Whole Blood 126 mg/dL (60-115)
--- NOTE | 2023-11-10 14:02 | HO.OPN-COLON ---
Colonoscopy Operative Note Operative Note Date of Service: 11/10/23 Narrative: COLONOSCOPY TILL CECUM WITH SNARE POLYPECTOMY AND APC Pre-op diagnosis: SURVEILLANCE FOR COLON POLYPS, ANEMIA. Post-op diagnosis:? Colon polyps, AVMs right colon, Diverticulosis, hemorrhoids Endoscopist:? Papito Brooks MD Anesthesia:?MAC Consent: Indications for the procedure and potential complications of bleeding, perforation, reaction to medications and missed diagnosis were discussed with the patient and informed consent was obtained. Instrument: Olympus PCF H 190 L variable stiffness pediatric colonoscope Monitoring: Vital signs and clinical assessment, intermittent blood pressure monitoring, continuous EKG monitoring, Pulse oximetry and Carbon Dioxide monitoring were done throughout the procedure. Please see anesthesia flowsheet. Colon withdrawl time was 28 minutes. Procedure: The patient was placed in the left lateral decubitis position and pre-procedure medications were administered. After a digital rectal examination of the ano-rectum, the video colonoscope was inserted into the rectum and advanced through the colon to the cecum. The colonoscope was slowly withdrawn in a retrograde panoramic fashion and the colon mucosa was carefully examined including a retroflexed view of the rectum. Findings and interventions are described below. Procedure Difficulty: Cecum reached without difficulty. There was excessive spasm in the colon during withdrawal of the colonoscope Findings: Terminal Ileum: Not evaluated Cecum: Four 5 to 8 mm non-bleeding AVMs - treated with APC Ascending Colon: Two 8 to 10 mm sessile polyps - removed with a cold snare Moderate diverticulosis scattered throughout the colon Transverse Colon: A 10 mm sessile polyp - removed with a cold snare. Moderate diverticulosis scattered throughout the colon Descending Colon: Moderate diverticulosis scattered throughout the colon Sigmoid Colon: Severe diverticulosis with luminal narrowing Rectum: A few 5-6 mm diminutive appearing polyps Ano-rectum: Small internal hemorrhoids and hypertrophied anal papillae Colon preparation: Good after some irrigation. [place] Bowel Preparation Scale Right colon; 2 Transverse colon: 2 Left colon; 2 (0 = Unprepared colon segment with mucosa not seen due to solid stool that cannot be cleared. 1 = Portion of mucosa of the colon segment seen, but other areas of the colon segment not well seen due to staining, residual stool and/or opaque liquid. 2 = Minor amount of residual staining, small fragments of stool and/or opaque liquid, but mucosa of colon segment seen well. 3 = Entire mucosa of colon segment seen well with no residual staining, small fragments of stool or opaque liquid) Impression and Post Procedure Diagnosis: Colonoscopy Findings: Three medium sized polyps were removed Moderate to severe diverticulosis seen in the entire colon small hemorrhoids on retroflexed exam. Plan: Pt has a FU appointment on 11/24/23 with Zaria Mcdonald NP. Repeat Colonoscopy in 3-5 years if polyps are adenomatous and can discontinue colorectal cancer screening polyps hyperplastic. Above findings were reviewed with the patient and relevant handouts were given and the discharge area. BIOPSIES SHOWED: A. Colon, ascending, polypectomy: Scant fragment of colonic mucosa with small lymphoid aggregate. B. Colon, transverse, polypectomy: Colonic mucosa with mild surface hyperplastic changes
[2023-11-10 14:05] VITALS: BP 106/37; PULSE 67; RESP 16; TEMP 36.5; O2SAT 97
[2023-11-10 14:20] VITALS: BP 137/49; PULSE 70; RESP 16; O2SAT 98
--- NOTE | 2023-11-10 14:50 | HO.POSTANES ---
Post Anesthesia Evaluation Post Anesthesia Evaluation Date of Service: 11/10/23 Vital Signs: Vital Signs Temp Pulse Resp BP Pulse Ox O2 Del Method 11/10/23 14:20 70 16 137/49 L 98 Room Air 11/10/23 14:05 97.7 F 67 16 106/37 L 97 Room Air 11/10/23 11:32 97.0 F 58 15 166/53 H 97 Room Air Anesthesia: Monitored Mental Status: Awake Pain Control: Satisfactory Nausea/Vomiting: None Hydration: Adequate Anesthesia-Related Issues: No Anes. Related Issues
== END 2023-11-10 14:50 | disposition home or self-care (01) ==
PROVIDERS: PCP Internal Medicine; Visit Provider Internal Medicine Gastroenterology
PROC: 0DJD8ZZ Inspection of Lower Intestinal Tract, Via Natural or Artificial Opening Endoscopic (ICD-10-PCS; CPT 45378; principal; 2023-11-10 12:20)
DX: Z12.11 Encounter for screening for malignant neoplasm of colon (principal); Z86.010 Personal history of colon polyps; K63.5 Polyp of colon; K57.30 Diverticulosis of large intestine without perforation or abscess without bleeding; D64.9 Anemia, unspecified; K55.20 Angiodysplasia of colon without hemorrhage; K64.8 Other hemorrhoids; I10 Essential (primary) hypertension; E78.5 Hyperlipidemia, unspecified; E11.9 Type 2 diabetes mellitus without complications; I42.9 Cardiomyopathy, unspecified; I48.0 Paroxysmal atrial fibrillation; Z87.891 Personal history of nicotine dependence
CPT/HCPCS: 45388; 45385; 82947; 88305; J2704

== ENCOUNTER → 2023-11-10 10:17 | Outpatient (BNV) | payer MEDICARE, SELFPAY | PROVIDERS: PCP Internal Medicine; Visit Provider Internal Medicine Gastroenterology | DX: Z12.11 Encounter for screening for malignant neoplasm of colon (principal); Z86.010 Personal history of colon polyps; K63.5 Polyp of colon; K57.30 Diverticulosis of large intestine without perforation or abscess without bleeding; Q27.33 Arteriovenous malformation of digestive system vessel; K64.8 Other hemorrhoids | CPT/HCPCS: 45385; 45388 ==

== ENCOUNTER 2023-11-24 09:06 | Outpatient (AMB) | payer MEDICARE, SELFPAY ==
[2023-11-24 09:09] VITALS: BP 182/79; PULSE 65; BMI 29.4
--- NOTE | 2023-11-24 09:09 | A.OFFVIS_ITS ---
Vital Signs 11/24/23 09:09 Height 5 ft 2 in Weight 160 lb 7.944 oz BMI 29.4 BP 182/79 H Blood Pressure Location Lt brachial Position Sitting Pulse 65 Intake Visit Reasons: s/p colon Intake Note: Patient in office today in follow up s/p colonoscopy. CC: Patient reports doing well today. Reports she had a little bit of diarrhea after procedure but is doing fine now. Yard Hand Required: No Accompanied by: Self / Same As Patient Allergies No Known Allergies Allergy (Verified 11/24/23 09:12) HPI HPI s/p colon: Details: Assessment & Plan (1) Hemorrhage of gastrointestinal tract: Code(s): K92.2 - Gastrointestinal hemorrhage, unspecified (2) Tubular adenoma of colon: Comment: Scope 2018 partially removed large polyp repeated 2020 multiple polyps mostly hyperplastic but a few TA is and the prior site were inspected repeat in 3 years. Code(s): D12.6 - Benign neoplasm of colon, unspecified (3) AVM (arteriovenous malformation) of colon: Comment: Discovered on scope 2020 she appears to be asymptomatic Code(s): K55.20 - Angiodysplasia of colon without hemorrhage (4) Paroxysmal atrial fibrillation: Code(s): I48.0 - Paroxysmal atrial fibrillation (5) Cardiomyopathy: Code(s): I42.9 - Cardiomyopathy, unspecified Plan The procedure from 2019 should be repeated in 3 years due to the finding of a tubular adenoma that was sessile and quite large. The procedure was well tolerated. Apparently she had bleeding and anemia had double balloon enteroscopy performed at another hospital recently that showed AVMs that cauterized. This was at [facility], but full records/labs are not yet available. Will recheck her CBC to be safe. Her afib and cardiomyopathyt are now well controlled with resolution of the anemia, she denies any respiratory problems. There are no prior problems with anesthesia or sedation. No ID problems. Return office visit after the procedure. Orders: Orders Complete Blood Count Auto Diff 06/19/23 K92.2 - Gastrointestinal hemorrhage, unspecified Colonoscopy - GI Use Only 06/16/23 D12.6 - Benign neoplasm of colon, unspecified, K55.20 - Angiodysplasia of colon without hemorrhage, I48.0 - Paroxysmal atrial fibrillation, K92.2 - Gastrointestinal hemorrhage, unspecified, I42.9 - Cardiomyopathy, unspecified Medications: New peg 3350-electrolytes 236-22.74-6.74 -5.86 gram (Golytely) until fecal effluent is clear; do not exceed a total volume of 2,000 mL 240 mL PO Q10M 4,000 mL 0RF 1 day Z12.11 - Encounter for screening for malignant neoplasm of colon bisacodyl (Dulcolax (bisacodyl)) 10 mg (2 x 5 mg) PO BEDTIME 4 tabs 0RF 2 days LABS: Laboratory Tests 08/03/23 08:33 WBC 8.9 RBC 4.16 L Hgb 11.7 L Hct 36.2 L MCV 87.0 MCH 28.1 Plt Count 400 Hemoglobin A1c % 6.3 H AST 29 ALT 28 COLONOSCOPY 11/10/23 Findings: Terminal Ileum: Not evaluated Cecum: Four 5 to 8 mm non-bleeding AVMs - treated with APC Ascending Colon: Two 8 to 10 mm sessile polyps - removed with a cold snare Moderate diverticulosis scattered throughout the colon Transverse Colon: A 10 mm sessile polyp - removed with a cold snare. Moderate diverticulosis scattered throughout the colon Descending Colon: Moderate diverticulosis scattered throughout the colon Sigmoid Colon: Severe diverticulosis with luminal narrowing Rectum: A few 5-6 mm diminutive appearing polyps Ano-rectum: Small internal hemorrhoids and hypertrophied anal papillae Impression and Post Procedure Diagnosis: Colonoscopy Findings: Three medium sized polyps were removed Moderate to severe diverticulosis seen in the entire colon small hemorrhoids on retroflexed exam. Plan: Pt has a FU appointment on 11/24/23 with Zaria Mcdonald NP. Repeat Colonoscopy in 3-5 years if polyps are adenomatous and can discontinue colorectal cancer screening polyps hyperplastic. Above findings were reviewed with the patient and relevant handouts were given and the discharge area. BIOPSIES SHOWED: A. Colon, ascending, polypectomy: Scant fragment of colonic mucosa with small lymphoid aggregate. B. Colon, transverse, polypectomy: Colonic mucosa with mild surface hyperplastic changes TODAY'S VISIT Since the removed lesions were not TA's she likely does not need any further colonoscopies unless there are concerns such as rectal bleeding, change in the bowel habits that are severe, or alarm symptoms such as weight loss. She is happy hear this and she is aware that she can return to our service has any. The procedure was well tolerated. The results were explained and the patient is agreeable to the follow-up interval as stated. The bowel pattern has returned to normal. Education was provided to tell any 1st degree relatives about their findings to be sure that they are screened by age 45. Educated that they will be put on a recall list when it is time for their repeat scope but should they move out of state or away from the hospital they will need to remember along with their primary to repeat the procedure in a timely fashion to avoid any adverse complications. [facility] Medical History AV (angiodysplasia malformation of colon) Memory change Word finding difficulty Anemia due to gastrointestinal blood loss Paroxysmal atrial fibrillation Intermittent lightheadedness Thyroid nodule Type 2 diabetes mellitus without complication, with no history of insulin use Primary hyperparathyroidism Dyslipidemia (high LDL; low HDL) HTN (hypertension) Osteopenia Vitamin D deficiency Surgical History Hx of esophagogastroduodenoscopy Hx of cataract surgery Hx of total thyroidectomy Hx of cholecystectomy Hx of hysterectomy Hx of colonoscopy Family History Father Hypertension Diabetes mellitus Heart problem Congestive heart failure Carotid artery narrowing Mother Hypertension Diabetes mellitus Osteoporosis Colon polyps Social History Housing: House Alcohol intake: current Alcohol intake frequency: holidays/special occasions only Patient Tobacco Use Status: Former Tobacco user Years Smoked: 50 +/- e-Cigarette/Vaping Use: Never Used service: No Current occupational status: retired Cognitive needs: No Hearing needs: No Vision needs: Yes Review of Systems Const Denies fatigue, Denies fever(s), Denies night sweats, Denies poor appetite and Denies weight loss ENT Reports Normal hearing present, Denies dental pain, Denies dysphagia, Denies hearing loss, Denies mouth pain, Denies odynophagia, Denies throat swelling, Denies tongue swelling and Reports other (Dentition adequate) Card Reports no additional complaints Resp Reports no additional complaints GI Details: Denies abdominal pain, Denies melena, Denies bloating, Denies hematochezia, Denies constipation, Denies GI cramping, Denies dysphagia, Denies excessive flatus, Denies early satiety, Denies heartburn, Denies diarrhea, Denies nausea, Denies odynophagia, Denies vomiting and Denies hematemesis Skin/Breast Denies pruritus, Denies lesions, Denies rash and Denies jaundice Neuro Reports Normal hearing present and Denies Abnormal speech present Endo Denies fatigue Aller/Immun Denies throat swelling and Denies tongue swelling Physical Exam Vital Signs: Last Vital Signs Pulse 65 11/24/23 09:09 BP 182/79 H 11/24/23 09:09 BMI result Body Mass Index 29.4 Const General: cooperative, no acute distress, well developed and well groomed Nutritional Appearance: well nourished and overweight Orientation/consciousness: oriented to person, oriented to place and oriented to time Limitations: No language barrier HEENT Head: Yes normocephalic and Yes atraumatic Eyes General: appearance normal, both eyes and all related structures Pupils: Equal, round and reactive pupils present Neck Neck: Yes normal visual inspection and Yes no lymphadenopathy Thyroid: Thyroid normal Resp Effort & Inspection: normal respiratory effort and able to speak in complete sentences Auscultation: clear to auscultation bilaterally Cardio Rate: regular rate Rhythm: regular rhythm Heart sounds: Normal, physiologic split S2 sound present Peripheral pulses: radial pulses present and posterior tibial pulses present GI Inspection: No distended and No Abdominal panniculus present Palpation (GI): Soft to palpation, nontender, no guarding, not rigid and No hepatosplenomegaly present Percussion: Yes normal to percussion Auscultation: normal bowel sounds Rectal Exam - Female: deferred Skin General skin exam: no rashes or lesions noted, turgor normal, skin not dry, no jaundice, No spider nevi and no striae Rashes: no rashes Nails: normal Neuro General: oriented to person, oriented to place and oriented to time Cranial nerves: Yes Equal, round and reactive pupils present and Yes Normal hearing present Speech: No Abnormal speech present Extrem General: Yes normal to inspection, No clubbing, No cyanosis and No edema Psych Appearance: grossly normal and well kempt Mental Status: mental status grossly normal Speech and movement: Normal speech and movement present Affect: normal affect Attitude: cooperative Thought process: Normal thought process present and not confabulating Thought content: Normal thought content present Insight: Fair insight present (Psych) Judgement: Fair judgement present (Psych) Assessment & Plan Assessment & Plan (1) Tubular adenoma of colon: Comment: 10/2023 scope= false polyps patient likely does not need anymore colonoscopies except in the face of concerning symptoms; Scope 2019 partially removed large polyp repeated 2020 multiple polyps mostly hyperplastic but a few TA is and the prior site were inspected repeat in 3 years. Code(s): D12.6 - Benign neoplasm of colon, unspecified Category: Medical Plan Since the removed lesions were not TA's she likely does not need any further colonoscopies unless there are concerns such as rectal bleeding, change in the bowel habits that are severe, or alarm symptoms such as weight loss. She is happy hear this and she is aware that she can return to our service has any. The procedure was well tolerated. The results were explained and the patient is agreeable to the follow-up interval as stated. The bowel pattern has returned to normal. Education was provided to tell any 1st degree relatives about their findings to be sure that they are screened by age 45. Educated that they will be put on a recall list when it is time for their repeat scope but should they move out of state or away from the hospital they will need to remember along with their primary to repeat the procedure in a timely fashion to avoid any adverse complications. Coding Level of Care Code Est Pt Level 3 (65661) Diagnoses Tubular adenoma of colon D12.6
== END 2023-11-24 09:31 | disposition home or self-care (01) ==
LOC: HO.HGI 09:06
PROVIDERS: PCP Internal Medicine; Visit Provider Nurse Practitioner
DX: D12.6 Benign neoplasm of colon, unspecified (principal)
CPT/HCPCS: 99213

== ENCOUNTER → 2023-11-24 09:06 | Outpatient (BNVA) | payer MEDICARE, SELFPAY | PROVIDERS: PCP Internal Medicine; Visit Provider Nurse Practitioner | DX: D12.6 Benign neoplasm of colon, unspecified (principal) | CPT/HCPCS: 99212 ==

== ENCOUNTER 2023-11-24 11:43 | Outpatient (AMB) | payer MEDICARE, SELFPAY ==
[2023-11-24 11:54] VITALS: BP 128/78; PULSE 73; TEMP 36.8; O2SAT 97; BMI 29.3
--- NOTE | 2023-11-24 11:54 | AM.OFFWIN_ITS ---
Intake Vital Signs 11/24/23 11:54 Height 5 ft 2 in Weight 160 lb BMI 29.3 BP 128/78 Blood Pressure Location Rt brachial Position Sitting Pulse 73 Pulse Source Pulse Oximeter Temp 98.3 F Temp Source Oral Pulse Oximetry (%) 97 Oxygen Delivery Method Room Air Intake Visit Reasons: possibly side effect to shingles vaccine Intake Note: pt c/o Runny nose, Right sided facial numbness and droop. ? Shingles vaccine reaction. Patient Tobacco Use Status: Former Tobacco user Allergies No Known Allergies Allergy (Verified 11/24/23 11:54) Do you need a note to return to daycare/school/sports/work: No HPI HPI Comments History of Present Illness Details This is a 78-year-old female who presented to the walk-in clinic complaining of right-sided facial droop, inability to close right eye, and watering of right eye. Patient states she received the shingles vaccine 4 days ago. She started to notice rhinorrhea from her right nostril yesterday. She woke up this morning in her right eye was watering and she was unable to close her right eye. She then noticed that she had a right-sided facial droop and was unable to move the right side of her face/mouth. She denies any weakness of her arms or legs. She denies any visual disturbances. She denies any numbness/paresthesias of her extremities. [facility] Medical History AV (angiodysplasia malformation of colon) Memory change Word finding difficulty Anemia due to gastrointestinal blood loss Paroxysmal atrial fibrillation Intermittent lightheadedness Thyroid nodule Type 2 diabetes mellitus without complication, with no history of insulin use Primary hyperparathyroidism Dyslipidemia (high LDL; low HDL) HTN (hypertension) Osteopenia Vitamin D deficiency Surgical History Hx of esophagogastroduodenoscopy Hx of cataract surgery Hx of total thyroidectomy Hx of cholecystectomy Hx of hysterectomy Hx of colonoscopy Family History Father Hypertension Diabetes mellitus Heart problem Congestive heart failure Carotid artery narrowing Mother Hypertension Diabetes mellitus Osteoporosis Colon polyps Social History Housing: House Alcohol intake: current Alcohol intake frequency: holidays/special occasions only Patient Tobacco Use Status: Former Tobacco user Years Smoked: 50 +/- e-Cigarette/Vaping Use: Never Used service: No Current occupational status: retired Cognitive needs: No Hearing needs: No Vision needs: Yes Review of Systems Const All systems reviewed & are unremarkable except as noted in HPI and below Reports no additional complaints Eyes Reports no additional complaints ENT Reports no additional complaints Card Reports no additional complaints Resp Reports no additional complaints GI Reports no additional complaints Reports no additional complaints Musc Reports no additional complaints Skin/Breast Reports system reviewed and no additional complaints, except as documented Neuro Reports no additional complaints Psych Reports no additional complaints Endo Reports no additional complaints Dong/Lymph Reports no additional complaints Aller/Immun Reports no additional complaints Physical Exam Vital Signs: Last Vital Signs Temp 98.3 F 11/24/23 11:54 Pulse 73 11/24/23 11:54 BP 128/78 11/24/23 11:54 Pulse Ox 97 11/24/23 11:54 Oxygen Delivery Method Room Air 11/24/23 11:54 BMI result Body Mass Index 29.3 Const Other: Vital signs reviewed. Constitutional: Non-toxic appearing. No acute distress. Well-developed and well-nourished. HEENT: Normocephalic and atraumatic. PERRL/EOMI. Skin: Warm and dry. No rashes or lesions noted. Neck: Full and painless range of motion. No cervical lymphadenopathy. Cardio: Regular rate and rhythm. No murmurs, gallops, or rubs. No lower extremity edema. No JVD. Pulmonary: No respiratory distress. No accessory muscle usage. Clear to auscultation bilaterally without wheezing, crackles, or rhonchi. Gastrointestinal: Soft, nontender, and nondistended in all 4 quadrants. Musculoskeletal: Normal range of motion in joints throughout the body. No defor mity or other signs of injury. Neuro: Alert and oriented x4. Right-sided facial droop and ptosis of right upper eyelid. There is also weakness of the right eyebrow/forehead. She has 5/5 strength of bilateral upper and lower extremities. Her extraocular movements are intact and pupils are equal, round, and reactive to light. She has no pronator drift. Her sensation is intact. Psych: Normal mood and affect. 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 On physical examination, there is right-sided facial droop, ptosis of the right upper eyelid, watering of the right eye, and weakness of the right eyebrow/forehead. She has 5/5 strength of bilateral upper and lower extremities. Her sensation is intact. History and physical appear to be most consistent with Maldonado's palsy; acute CVA appears less likely given involvement of the forehead and neurological exam is otherwise within normal limits with EOMI/PERRL, Guillain-[place] syndrome appears less likely given no weakness of lower or upper extremities although was considered on the differential given recent shingles vaccine. The patient was extensively educated that I can not rule out a CVA or Guillain-[place] syndrome at the walk-in clinic; however, she does not want to go to the emergency room. She was made aware that Guillain- [place] syndrome can progress to include her respiratory muscles and can result in respiratory arrest/failure and a CVA can result in permanent disability if not treated quickly. I explained to the patient that she should have a very low threshold to present to the emergency room and she verbalized her understanding although does not want to go to the emergency room at this time. Patient was given extensive instructions on when to proceed to the emergency room including weakness of arms or legs, visual disturbances, shortness of breath/difficulty breathing, or any new neurological symptoms such as numbness/paresthesias. Patient was given a prescription for p.o. prednisone 50 mg daily x7 days and PO valacyclovir 1000 mg 3 times daily x7 days for treatment of presumed Maldonado's palsy. She was also instructed to purchase an [id number] eye lubricant to prevent dryness/irritation of her eye. 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
== END 2023-11-24 12:32 | disposition home or self-care (01) ==
PROVIDERS: PCP Internal Medicine; Visit Provider Physician Assistant Medical
DX: G51.0 Bell's palsy (principal)
CPT/HCPCS: 99213

== ENCOUNTER 2023-11-25 18:32 | Emergency (ER) | payer MEDICARE, SELFPAY ==
--- NOTE | ~2023-11-25 | XR_ITS ---
EXAMINATION: XR CHEST CLINICAL INFORMATION: Chest pain COMPARISON: 03/15/2022 TECHNIQUE: 2 views of the chest were obtained. FINDINGS: Stable cardiomediastinal silhouette. Atherosclerotic calcification in the thoracic aorta. No consolidation, pleural effusion or pneumothorax. Degenerative changes in the spine. XR/XR chest 2V IMPRESSION: No acute process.
--- NOTE | 2023-11-25 18:33 | ECG_ITS ---
Test Reason : chest pain Blood Pressure : / mmHG Vent. Rate : 094 BPM Atrial Rate : 094 BPM P-R Int : 166 ms QRS Dur : 090 ms QT Int : 376 ms P-R-T Axes : 092 007 264 degrees QTc Int : 470 ms Normal sinus rhythm Nonspecfic ST-T changes Abnormal ECG When compared with ECG of 02-OCT-2012 13:52, Nonspecific T wave abnormality now evident in Inferior leads Nonspecific T wave abnormality, worse in Lateral leads Referred By: Gina Weinberg Electronically Signed By:Nic Emmanuel
[2023-11-25 18:42] VITALS: BP 187/72; PULSE 89; RESP 18; TEMP 36.4; O2SAT 96; BMI 29.8
--- NOTE | 2023-11-25 18:48 | ED_ITS ---
HPI - Chest Pain General Chief Complaint: Chest Pain Stated Complaint: chest pain, heart racing Time Seen by Provider: 11/25/23 22:29 History of Present Illness ED Provider: Otoniel BARNES narrative: The patient is a 78-year-old female who had an episode of shortness of breath and palpitations associated with a slight amount of chest discomfort or left arm discomfort this afternoon. The episode lasted about 45 minutes. She came to the emergency room for evaluation. She is feeling better now. The patient says that she has had similar episodes in the past. She says she has never been formally diagnosed with atrial fibrillation. However paroxysmal atrial fibrillation is on her problem list. She is not on anticoagulation. She apparently has a history of a significant blood loss from a GI bleed in the past. Two days ago the patient developed right-sided facial weakness. Yesterday she was seen at her PCP's office and was diagnosed with Maldonado's palsy and started on prednisone and valacyclovir. She has had no difficulty speaking. No right arm or leg symptoms. Related Data Previous Rx's ?Medication ?Instructions ?Recorded blood sugar diagnostic (SAY [employer] #100 ea 07/01/21 Ultra Test strips) lancets 30 gauge (SAY [employer] Delica #100 ea 07/01/21 Lancets) simvastatin 20 mg tablet 20 mg PO Q2D 3 months #45 tabs 10/05/22 metoprolol succinate 50 mg 50 mg PO DAILY #90 tabs 05/22/23 tablet,extended release 24 hr metformin 500 mg tablet 500 mg PO BID #180 tabs 06/20/23 ferrous sulfate 325 mg (65 mg 325 mg PO DAILY #90 tabs 07/30/23 iron) tablet cholecalciferol (vitamin D3) 50 50 mcg PO DAILY #90 caps 08/07/23 mcg (2,000 unit) capsule citalopram 10 mg tablet 10 mg PO DAILY #30 tabs 09/19/23 prednisone 50 mg tablet 50 mg PO DAILY #7 tabs 11/24/23 valacyclovir 1 gram tablet 1,000 mg PO TID 7 days #21 tabs 11/24/23 Allergies Allergy/AdvReac Type Severity Reaction Status Date / Time No Known Allergies Allergy Verified 11/25/23 18:45 Review of Systems 2 Review of Systems: Yes all other systems are reviewed and are negative PMFSH Past Medical History Medical History AV (angiodysplasia malformation of colon) Memory change Word finding difficulty Anemia due to gastrointestinal blood loss Paroxysmal atrial fibrillation Intermittent lightheadedness Thyroid nodule Type 2 diabetes mellitus without complication, with no history of insulin use Primary hyperparathyroidism Dyslipidemia (high LDL; low HDL) HTN (hypertension) Osteopenia Vitamin D deficiency Surgical History Hx of esophagogastroduodenoscopy Hx of cataract surgery Hx of total thyroidectomy Hx of cholecystectomy Hx of hysterectomy Hx of colonoscopy Family History Family History Father Hypertension Diabetes mellitus Heart problem Congestive heart failure Carotid artery narrowing Mother Hypertension Diabetes mellitus Osteoporosis Colon polyps Social History Social History Housing: House Alcohol intake: current Alcohol intake frequency: does not drink Patient Tobacco Use Status: Former Tobacco user Years Smoked: 50 +/- Smoked in Last 30 Days: No e-Cigarette/Vaping Use: Never Used Use of substances other than those prescribed or required for medical reasons: No Advance Directives: Yes Advance Directives Information Provided: No Advance Directives on File: No Do you have a plan to hurt others: No Plan service: No Current occupational status: retired Cognitive needs: No Hearing needs: No Vision needs: Yes Physical Exam 2 Vital Signs: Vital Signs: Last Vital Signs Temp 98.3 F 11/26/23 00:28 Pulse 64 11/26/23 00:28 Resp 12 11/26/23 00:28 BP 159/52 H 11/26/23 00:28 Pulse Ox 97 11/26/23 00:28 O2 Del Method Room Air 11/26/23 00:28 BMI result Body Mass Index 29.8 Const: Other: The patient is awake, alert, pleasant, cooperative. She has an obvious right- sided facial weakness that includes the forehead and the eyelids. She does not appear in acute distress. HEENT: Other: There is obvious right-sided facial weakness including forehead, eyelids, and the lower face as well. Mucous membranes are moist. Eyes: Other: Pupils are round equal, conjunctivae are clear, extraocular movements are intact. Blinking function of the right eye is significantly diminished. Neck: Other: No obvious JVD Resp: Effort & Inspection: normal respiratory effort Auscultation: clear to auscultation bilaterally Cardio: Rate: regular rate Rhythm: regular rhythm Heart sounds: S1 normal heart sound present and S2 normal heart sound present GI: Other: Abdomen is soft and nontender Skin: Other: Skin is dry and unremarkable Neuro: Other: The patient is awake, alert, pleasant, cooperative. She has a complete right- sided facial weakness. Eye blinking on the right side is markedly weaker than on the left. Eye movements are intact. Speech is clear and appropriate. Strength in the extremities is symmetrical. Extrem: Other: No calf swelling or tenderness. No asymmetry. No edema. Course Course Course Narrative: RME performed by Gina Weinberg PA-C. Patient is a 78 year old assigned female at presenting to the emergency department with chest pain. Detailed physical exam and review of systems are deferred to the hosiery mater. EKG, labs, imaging, and swabs ordered. Patient placed back in the waiting room pending room availability and results. Medical Decision Making Medical Decision Making MDM Narrative: The patient is a 78-year-old female who comes to the emergency room for evaluation of an episode of chest palpitations associated with shortness of breath that lasted about an hour. Her symptoms seemed to have resolved before coming to the emergency room. Her workup in the emergency room for these symptoms is essentially negative. She has 2 undetectable troponins. Chest x- ray is negative. EKG shows normal sinus rhythm. My suspicion is that she probably had an episode of atrial fibrillation which resolved on its own. As a side note the patient has an obvious right-sided Maldonado's palsy. She was seen at her PCP's office 2 days ago for this and prescribed prednisone and valacyclovir. She is encouraged to continue these medications. The patient will be discharged to follow up with Dr. Diallo of Cardiology to discuss this episode further. Lab Data 11/25/23 18:59 11/25/23 22:59 Labs: Lab Results 11/25/23 11/25/23 11/26/23 Range/Units 18:59 22:59 00:17 WBC 7.4 (4.8-10.8) X10*3/uL RBC 4.22 (4.20-5.50) X10*6/uL Hgb 12.3 (12.0-16.0) g/dl Hct 36.4 L (37.0-47.0) % MCV 86.3 (80.0-98.0) fL MCH 29.1 (27.0-33.0) pg MCHC 33.8 (31.0-35.0) g/dl RDW 14.3 (11.0-16.0) % Plt Count 396 (160-400) X10*3/uL MPV 9.3 L (9.4-12.3) fL Immature Gran % (Auto) 0.7 H (0.0-0.4) % Neut % (Auto) 84.3 H (45-73) % Lymph % (Auto) 12.2 L (20-40) % [place] % (Auto) 2.4 (2-11) % Eos % (Auto) 0.0 (0-4) % Baso % (Auto) 0.4 (0-2) % Lymph # (Auto) 0.9 L (1.2-4.9) X10*3/uL [place] # (Auto) 0.2 (0.1-1.2) X10*3/uL Eos # (Auto) 0.0 (0.0-0.4) X10*3/uL Baso # (Auto) 0.0 (0.0-0.2) X10*3/uL Abs Immat Gran (auto) 0.05 H (0.00-0.03) X10*3/uL Absolute Neuts (auto) 6.2 (2.0-8.3) x10*3/uL Absolute Nucleated RBC 0.000 (0.0-0.012) X10*3/uL Nucleated RBC % (auto) 0.0 (0.0-0.2) /100WBC Sodium 136 139 (135-145) mmol/L Potassium 4.1 4.7 (3.3-5.1) mmol/L Chloride 104 105 (96-108) mmol/L Carbon Dioxide 16 L 25 (22-29) mmol/L Anion Gap 20 14 (12-20) BUN 8 L 8 L (9-16) mg/dL Creatinine 1.02 0.80 (0.5-1.4) mg/dL Estim Creat Clear Calc 43.4 55.3 Estimated GFR 53 > 60 Random Glucose 296 H 169 H (60-115) mg/dL Calcium 10.0 9.4 (8.4-10.2) mg/dL Magnesium 1.6 (1.6-2.6) mg/dL Total Bilirubin 0.2 (0.0-1.0) mg/dL AST 20 (5-31) U/L ALT 23 (0-31) U/L Alkaline Phosphatase 106 (39-117) U/L Troponin I High Sens < 2.7 < 2.7 (<3.5-17.0) ng/L B-Natriuretic Peptide 156 H (<100) pg/mL Total Protein 8.1 H (6.5-8.0) g/dL Albumin 4.0 (3.5-5.0) g/dL Urine Color Yellow Urine Appearance Clear Urine pH 6.5 (5.0-9.0) Ur Specific [place] 1.010 (1.005-1.025) Urine Protein Trace (Neg-Trace) mg/dL Urine Glucose (UA) 500 H (Negative) mg/dL Urine Ketones Negative (Negative) mg/dL Urine Blood Negative (Negative) Urine Nitrite Negative (Negative) Ur Leukocyte Esterase Negative (Negative) Influenza Type A (PCR) NEGATIVE (Negative) Influenza Type B (PCR) NEGATIVE (Negative) RSV RNA Qual (PCR) NEGATIVE (Negative) SARS-CoV-2 RNA (RT-PCR) NEGATIVE (Negative) Independent Interpretation I performed an independent interpretation of an: EKG Interpretation: EKG at 18:35 shows normal sinus rhythm at 94 beats per minute. There are nonspecific ST and T-wave changes but on the whole I do not feel it is that different from an EKG from 2013. Discharge Plan Discharge Clinical Impression: Chest pain, Palpitations Patient Disposition: Home, Self-Care Additional Instructions: Your testing in the emergency room today is reassuring. I suspect that you probably had an episode of atrial fibrillation that resolved on its own. Please plan on following up with your coil cleaner to discuss this episode further. Call the office on Monday. Please continue the medications you were prescribed for your Maldonado's palsy. Follow up as previously discussed with your primary care doctor. Return to the emergency room if significantly worse. Prescriptions: No Action (DME) RaidarrrTouch Ultra Test Strip See Rx Instructions .ROUTE BID Qty: 100 3RF Rx Instructions: test blood sugars once daily (DME) lancets [OneTouch Delica Lancets] 30 gauge misc See Rx Instructions topical BID Qty: 100 3RF Rx Instructions: test blood sugar once daily metoprolol succinate 50 mg tablet extended release 24 hr 50 mg PO DAILY Qty: 90 3RF metformin 500 mg tablet 500 mg PO BID Qty: 180 1RF ferrous sulfate 325 mg (65 mg iron) tablet 325 mg PO DAILY Qty: 90 1RF citalopram 10 mg tablet 10 mg PO DAILY Qty: 30 6RF cholecalciferol (vitamin D3) 50 mcg (2,000 unit) capsule 50 mcg PO DAILY Qty: 90 1RF valacyclovir 1 gram tablet 1,000 mg PO TID 7 Days Qty: 21 0RF prednisone 50 mg tablet 50 mg PO DAILY Qty: 7 0RF simvastatin 20 mg tablet 20 mg PO Q2D 90 Days Qty: 45 4RF Referrals: Sasha White MD [Primary Care Provider] - Jovon Diallo MD [Physician] - (Episode of palpitations and chest pain) Interventions: ED Discharge Assessment Last Done: 11/26/23 00:28 Discharge Date/Time: 11/26/23 00:29 Print Language: Kyrgyz
[2023-11-25 19:03] LABS: MANUAL DIFF FLAG NO
[2023-11-25 19:05] LABS: Basophils Percent Auto 0.4 % (0-2); Hematocrit 36.4 % (37.0-47.0); Hemoglobin 12.3 g/dl (12.0-16.0); Imm Gran Abs Auto 0.05 X10*3/uL (0.00-0.03); Imm Gran Pct Auto 0.7 % (0.0-0.4); Lymphocytes Absolute Auto 0.9 X10*3/uL (1.2-4.9); Lymphocytes Percent Auto 12.2 % (20-40); Mean Corpuscular HGB Conc 33.8 g/dl (31.0-35.0); Mean Corpuscular Hemoglobin 29.1 pg (27.0-33.0); Mean Corpuscular Volume 86.3 fL (80.0-98.0); Mean Platelet Volume 9.3 fL (9.4-12.3); Monocytes Absolute Auto 0.2 X10*3/uL (0.1-1.2); Monocytes Percent Auto 2.4 % (2-11); Neutrophils Absolute Auto 6.2 x10*3/uL (2.0-8.3); Neutrophils Percent Auto 84.3 % (45-73); Platelet Count 396 X10*3/uL (160-400); Red Blood Count 4.22 X10*6/uL (4.20-5.50); Red Cell Distribution Width 14.3 % (11.0-16.0); White Blood Count 7.4 X10*3/uL (4.8-10.8)
[2023-11-25 19:27] LABS: Alanine Aminotransferase 23 U/L (0-31); Alkaline Phosphatase 106 U/L (39-117); Anion Gap 20 (12-20); Aspartate Amino Transferase 20 U/L (5-31); Bilirubin Total 0.2 mg/dL (0.0-1.0); Blood Urea Nitrogen 8 mg/dL (9-16); Carbon Dioxide 16 mmol/L (22-29); Chloride 104 mmol/L (96-108); Creatinine Clr Calc Pharmacy 43.4; Estimated Glomerular Filt Rate 53; Glucose Random 296 mg/dL (60-115); Magnesium 1.6 mg/dL (1.6-2.6); Potassium 4.1 mmol/L (3.3-5.1); Sodium 136 mmol/L (135-145); Total Protein 8.1 g/dL (6.5-8.0); Troponin-I High Sensitivity < 2.7 ng/L (<3.5-17.0)
[2023-11-25 19:40] LABS: Influenza A PCR NEGATIVE (Negative); Influenza B PCR NEGATIVE (Negative); Resp Syncy Virus RNA Qual PCR NEGATIVE (Negative); SARS COV2 PCR INHOUSE NEGATIVE (Negative)
[2023-11-25 23:18] LABS: Anion Gap 14 (12-20); Blood Urea Nitrogen 8 mg/dL (9-16); Calcium 9.4 mg/dL (8.4-10.2); Carbon Dioxide 25 mmol/L (22-29); Chloride 105 mmol/L (96-108); Creatinine Clr Calc Pharmacy 55.3; Estimated Glomerular Filt Rate > 60; Glucose Random 169 mg/dL (60-115); Potassium 4.7 mmol/L (3.3-5.1); Sodium 139 mmol/L (135-145)
[2023-11-25 23:24] LABS: B Type Natriuretic Peptide 156 pg/mL (<100)
[2023-11-25 23:59] LABS: Troponin-I High Sensitivity < 2.7 ng/L (<3.5-17.0)
[2023-11-26 00:01] VITALS: BP 159/52; PULSE 64; RESP 12; TEMP 36.8; O2SAT 97
[2023-11-26 00:25] LABS: Appearance Urine Clear; Color Urine Yellow; Glucose Urine UA 500 mg/dL (Negative); Leukocyte Esterase Urine Negative (Negative); Nitrite Urine Negative (Negative); PH 6.5 (5.0-9.0); Urine Blood Negative (Negative); Urine Ketones Negative (Negative); Urine Protein Trace mg/dL (Neg-Trace)
[2023-11-26 00:28] VITALS: BP 159/52; PULSE 64; RESP 12; TEMP 36.8; O2SAT 97
== END 2023-11-26 00:29 | disposition home or self-care (01) ==
PROVIDERS: Physician Assistant Medical; Emergency Provider Emergency Medicine; PCP Internal Medicine
DX: R07.9 Chest pain, unspecified (principal); R00.2 Palpitations; R06.02 Shortness of breath; G51.0 Bell's palsy; Z03.818 Encounter for observation for suspected exposure to other biological agents ruled out; E11.9 Type 2 diabetes mellitus without complications; I10 Essential (primary) hypertension; E78.5 Hyperlipidemia, unspecified; I48.0 Paroxysmal atrial fibrillation; Z87.891 Personal history of nicotine dependence; Z79.02 Long term (current) use of antithrombotics/antiplatelets; Z79.899 Other long term (current) drug therapy; Z79.84 Long term (current) use of oral hypoglycemic drugs
CPT/HCPCS: 0241U; 36415; 71046; 80048; 80053; 81003; 83735; 83880; 84484; 85025; 93005; 99283; 99285

== ENCOUNTER → 2023-11-25 18:33 | Outpatient (BNV) | payer MEDICARE, SELFPAY | PROVIDERS: Emergency Provider Emergency Medicine; PCP Internal Medicine; Visit Provider Internal Medicine Cardiovascular Disease | DX: R94.31 Abnormal electrocardiogram [ECG] [EKG] (principal) | CPT/HCPCS: 93010 ==

== ENCOUNTER 2023-11-30 09:16 | Outpatient (AMB) | payer MEDICARE, SELFPAY ==
--- NOTE | 2023-11-30 10:11 | MHC.OFFWIV ---
Intake Vital Signs 11/30/23 10:13 Height 5 ft 2 in Weight 160 lb BMI 29.3 BP 128/72 Blood Pressure Location Rt brachial Position Sitting Pulse 60 Pulse Source Pulse Oximeter Temp 98.4 F Temp Source Oral Pulse Oximetry (%) 98 Intake Visit Reasons: EP Medication reaction Intake Note: pt c/o ? medication reaction. Hallucinations, forgetfulness Patient Tobacco Use Status: Former Tobacco user Allergies vaccine adjuvant system, AS01B lipo [From Shingrix (PF)] Allergy (Severe, Verified 11/30/23 10:19) Maldonado's Palsy varicella-zoster virus glycoprotein [From Shingrix (PF)] Allergy (Severe, Verified 11/30/23 10:19) Maldonado's Palsy valacyclovir Adverse Reaction (Intermediate, Verified 11/30/23 10:19) Hallucinations, forgetfulness and dizziness Do you need a note to return to daycare/school/sports/work: No HPI HPI Comments History of Present Illness Details Patient is a 78-year-old female complaining hallucinations. She states she got her shingles vaccination and then developed Maldonado's palsy. Her primary care doctor gave her a prescription for prednisone and valacyclovir. She said her hallucination started when she started taking those medications. She says she will see spiders crawling on the ceiling or the reeves that her son can validate are not actually there. Patient states she has been taking her prednisone and valacyclovir as instructed and her last dose of prednisone was this morning. [facility] Medical History AV (angiodysplasia malformation of colon) Memory change Word finding difficulty Anemia due to gastrointestinal blood loss Paroxysmal atrial fibrillation Intermittent lightheadedness Thyroid nodule Type 2 diabetes mellitus without complication, with no history of insulin use Primary hyperparathyroidism Dyslipidemia (high LDL; low HDL) HTN (hypertension) Osteopenia Vitamin D deficiency Surgical History Hx of esophagogastroduodenoscopy Hx of cataract surgery Hx of total thyroidectomy Hx of cholecystectomy Hx of hysterectomy Hx of colonoscopy Family History Father Hypertension Diabetes mellitus Heart problem Congestive heart failure Carotid artery narrowing Mother Hypertension Diabetes mellitus Osteoporosis Colon polyps Social History Housing: House Alcohol intake: current Alcohol intake frequency: does not drink Patient Tobacco Use Status: Former Tobacco user Years Smoked: 50 +/- e-Cigarette/Vaping Use: Never Used service: No Current occupational status: retired Cognitive needs: No Hearing needs: No Vision needs: Yes Review of Systems Const All systems reviewed & are unremarkable except as noted in HPI and below Physical Exam Vital Signs: Last Vital Signs Temp 98.4 F 11/30/23 10:13 Pulse 60 11/30/23 10:13 BP 128/72 11/30/23 10:13 Pulse Ox 98 11/30/23 10:13 BMI result Body Mass Index 29.3 Const General: cooperative, healthy appearing, comfortable, no acute distress and well developed Orientation/consciousness: patient oriented x3 Limitations: no limitations HEENT Head: Yes normal to inspection Face and sinus: Yes other (Right-side: drooping corner of mouth, drooping eyelid, asymetrical smile) Eyes General: appearance normal, both eyes and all related structures Neck Neck: Yes normal visual inspection and Yes full ROM Resp Effort & Inspection: normal respiratory effort and able to speak in complete sentences Skin General skin exam: no rashes or lesions noted Neuro General: patient oriented x3 Extrem General: Yes normal to inspection Assessment & Plan Assessment & Plan (1) Medication reaction: Code(s): T50.905A - Adverse effect of unspecified drugs, medicaments and biological substances, initial encounter Qualifiers: Encounter type: initial encounter Qualified Code(s): T50.905A - Adverse effect of unspecified drugs, medicaments and biological substances, initial encounter Plan: Hallucinations are likely secondary to prednisone use. As patient took last dose today, advised that her symptoms should subside in the next couple of days. If they do not, strongly recommended she follow up with her PCP. Plan See above Coding Level of Care Code Est Pt Level 3 (16147) Diagnoses Adverse effect of drug, initial encounter T50.905A Encounter type: initial encounter
[2023-11-30 10:13] VITALS: BP 128/72; PULSE 60; TEMP 36.9; O2SAT 98; BMI 29.3
== END 2023-11-30 11:06 | disposition home or self-care (01) ==
PROVIDERS: PCP Internal Medicine; Visit Provider Physician Assistant
DX: T50.905A Adverse effect of unspecified drugs, medicaments and biological substances, initial encounter (principal)
CPT/HCPCS: 99213

== ENCOUNTER 2023-12-12 13:46 | Outpatient (AMB) | payer MEDICARE, SELFPAY ==
[2023-12-12 14:04] VITALS: BP 160/68; PULSE 62; BMI 29.3
--- NOTE | 2023-12-12 14:04 | MHC.OFFVIS ---
Vital Signs 12/12/23 14:04 12/12/23 14:28 Height 5 ft 2 in Weight 160 lb BMI 29.3 BP 160/68 H 146/62 H Blood Pressure Location Lt brachial Lt brachial Position Sitting Sitting Pulse 62 Pulse Source Pulse Oximeter Intake Visit Reasons: [facility] f/u Allergies vaccine adjuvant system, AS01B lipo [From Shingrix (PF)] Allergy (Severe, Verified 11/30/23 10:19) Maldonado's Palsy varicella-zoster virus glycoprotein [From Shingrix (PF)] Allergy (Severe, Verified 11/30/23 10:19) Maldonado's Palsy valacyclovir Adverse Reaction (Intermediate, Verified 11/30/23 10:19) Hallucinations, forgetfulness and dizziness HPI Comments Details: 78-year-old female presents today for follow-up after being in the emergency room at [facility]. She had presented to [facility] on 11/24 due to shortness of breath, palpitations, and some chest discomfort. She states this episode of palpitation lasted about 45 minutes. 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 She was started on prednisone and valacyclovir. She describes the chest pain that day was a pressure. She has had no other chest discomforts. She states her AFib episodes in the past were very mild and very short duration. Denies any other concerning symptoms. EKG in the emergency room was sinus rhythm, and she had to undetectable troponin levels. 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 blood loss Paroxysmal atrial fibrillation Intermittent lightheadedness Thyroid nodule Type 2 diabetes mellitus without complication, with no history of insulin use Primary hyperparathyroidism Dyslipidemia (high LDL; low HDL) HTN (hypertension) Osteopenia Vitamin D deficiency Surgical History Hx of esophagogastroduodenoscopy Hx of cataract surgery Hx of total thyroidectomy Hx of cholecystectomy Hx of hysterectomy Hx of colonoscopy Family History Father Hypertension Diabetes mellitus Heart problem Congestive heart failure Carotid artery narrowing Mother Hypertension Diabetes mellitus Osteoporosis Colon polyps Social History Housing: House Alcohol intake: current Alcohol intake frequency: does not drink Patient Tobacco Use Status: Former Tobacco user Years Smoked: 50 +/- e-Cigarette/Vaping Use: Never Used service: No Current occupational status: retired Cognitive needs: No Hearing needs: No Vision needs: Yes Review of Systems Const Denies weakness ENT Denies dizziness Card Denies chest pain, Denies chest pain with activity, Denies syncope, Denies rapid heart rate, Denies pedal edema, Denies edema, Denies leg edema, Denies lightheadedness, Denies palpitations, Denies dyspnea, Denies dyspnea on exertion and Denies orthopnea Resp Denies cough, Denies dyspnea and Denies dyspnea on exertion GI Denies hematochezia and Denies change in stool character Musc Denies abnormal gait, Denies muscle cramps, Denies muscle weakness, Denies numbness, Denies radiating pain into limb and Denies tingling Neuro Denies abnormal gait, Denies dizziness, Denies syncope, Denies numbness, Denies tingling and Denies weakness Endo Denies palpitations Physical Exam Vital Signs: Last Vital Signs Pulse 62 12/12/23 14:04 BP 146/62 H 12/12/23 14:28 BMI result Body Mass Index 29.3 Const Other: Right-sided facial drooping related to Maldonado's palsy. General: healthy appearing and no acute distress Orientation/consciousness: patient oriented x3 HEENT Head: Yes normal to inspection Eyes General: appearance normal, both eyes and all related structures Neck Neck: Yes normal visual inspection Chest Chest palpation & inspection: normal inspection of the chest Resp Effort & Inspection: normal respiratory effort Auscultation: clear to auscultation bilaterally Cardio Jugular venous distension: no JVD Palpation: normal PMI Rate: regular rate Rhythm: regular rhythm Heart sounds: S1 normal heart sound present, S2 normal heart sound present, no click, no gallops, no murmurs and no rubs GI Inspection: Yes normal to inspection Palpation (GI): Soft to palpation Skin General skin exam: no rashes or lesions noted Neuro General: patient oriented x3 Extrem General: Yes normal to inspection Psych Appearance: grossly normal Assessment & Plan Assessment & Plan (1) Paroxysmal atrial fibrillation: Code(s): I48.0 - Paroxysmal atrial fibrillation Category: Medical (2) Chest pain: Code(s): R07.9 - Chest pain, unspecified Category: Medical (3) Atherosclerotic cardiovascular disease: Code(s): I25.10 - Atherosclerotic heart disease of [place] coronary artery without angina pectoris Category: Medical (4) HTN (hypertension), benign: Code(s): I10 - Essential (primary) hypertension Category: Medical Plan We will get a 7 day Holter monitor to assess if patient is having increase in atrial fibrillation episodes. Episode likely secondary to reaction from the shingles vaccination. She is not on anticoagulation due to having a hemoglobin of 3.3 in the past. Hemoglobin during last hospital stay was stable at 12.3. Last echocardiogram on 05/12/2022 showed normal LV systolic function with impaired relaxation pattern. Moderately dilated left atrium. We will repeat echocardiogram. We will get cardiac stress testing to evaluate for any ischemia. Continue on metoprolol succinate 50 mg and simvastatin 20mg. Blood pressure is elevated since examination. Script for blood pressure cuff given to bring to their preferred [employer] company. We will follow up after testing. ED care if needed. Orders: Orders ECG 7 day holter monitor 12/12/23 I48.0 - Paroxysmal atrial fibrillation CA stress test 12/12/23 I25.10 - Atherosclerotic heart disease of [place] coronary artery without angina pectoris, I48.0 - Paroxysmal atrial fibrillation, R07.9 - Chest pain, unspecified CA echo transthoracic complete 12/12/23 I48.0 - Paroxysmal atrial fibrillation [place] cardiolite stress test 12/12/23 I25.10 - Atherosclerotic heart disease of [place] coronary artery without angina pectoris, I48.0 - Paroxysmal atrial fibrillation, R07.9 - Chest pain, unspecified Medications: New blood pressure monitor (Blood Pressure Kit) As directed 1 ea 0RF I10 - Essential (primary) hypertension Coding Level of Care Code Est Pt Level 4 (87777) Diagnoses Paroxysmal atrial fibrillation I48.0 Chest pain R07.9 Atherosclerotic cardiovascular disease I25.10 HTN (hypertension), benign I10
[2023-12-12 14:28] VITALS: BP 146/62
== END 2023-12-12 14:36 | disposition home or self-care (01) ==
PROVIDERS: PCP Internal Medicine; Visit Provider Nurse Practitioner
DX: I48.0 Paroxysmal atrial fibrillation (principal); R07.9 Chest pain, unspecified; I25.10 Atherosclerotic heart disease of native coronary artery without angina pectoris; I10 Essential (primary) hypertension
CPT/HCPCS: 99214

== ENCOUNTER → 2023-12-12 13:46 | Outpatient (BNVA) | payer MEDICARE, SELFPAY | PROVIDERS: PCP Internal Medicine; Visit Provider Nurse Practitioner | DX: I48.0 Paroxysmal atrial fibrillation (principal); I25.10 Atherosclerotic heart disease of native coronary artery without angina pectoris; I10 Essential (primary) hypertension; R07.9 Chest pain, unspecified | CPT/HCPCS: 99212 ==

== ENCOUNTER 2024-01-15 09:29 | Outpatient (REF) | payer MEDICARE, SELFPAY ==
[2024-01-15 13:29] LABS: MANUAL DIFF FLAG NO
[2024-01-15 13:36] LABS: Basophils Absolute Auto 0.1 X10*3/uL (0.0-0.2); Basophils Percent Auto 0.9 % (0-2); Eosinophils Absolute Auto 0.2 X10*3/uL (0.0-0.4); Eosinophils Percent Auto 2.4 % (0-4); Hematocrit 32.8 % (37.0-47.0); Hemoglobin 10.6 g/dl (12.0-16.0); Imm Gran Abs Auto 0.04 X10*3/uL (0.00-0.03); Imm Gran Pct Auto 0.5 % (0.0-0.4); Lymphocytes Absolute Auto 1.5 X10*3/uL (1.2-4.9); Lymphocytes Percent Auto 18.6 % (20-40); Mean Corpuscular HGB Conc 32.3 g/dl (31.0-35.0); Mean Corpuscular Hemoglobin 28.6 pg (27.0-33.0); Mean Corpuscular Volume 88.6 fL (80.0-98.0); Mean Platelet Volume 9.9 fL (9.4-12.3); Monocytes Absolute Auto 0.7 X10*3/uL (0.1-1.2); Monocytes Percent Auto 8.5 % (2-11); Neutrophils Absolute Auto 5.5 x10*3/uL (2.0-8.3); Neutrophils Percent Auto 69.1 % (45-73); Platelet Count 390 X10*3/uL (160-400); Red Cell Distribution Width 14.4 % (11.0-16.0)
[2024-01-15 13:54] LABS: Estimated Average Glucose 146 mg/dL; Hemoglobin A1c % 6.7 % (<6.0)
[2024-01-15 14:10] LABS: Alanine Aminotransferase 23 U/L (0-31); Anion Gap 12 (12-20); Aspartate Amino Transferase 22 U/L (5-31); Blood Urea Nitrogen 7 mg/dL (9-16); Calcium 9.1 mg/dL (8.4-10.2); Carbon Dioxide 27 mmol/L (22-29); Chloride 106 mmol/L (96-108); Cholesterol 180 mg/dL (<200); Estimated Glomerular Filt Rate > 60; Glucose Fasting 135 mg/dL (60-99); HDL Cholesterol 55 mg/dL (>40); Iron 340 mcg/dL (30-160); LDL Cholesterol Calculated 94 mg/dL (<100); Percent Iron Saturation 83 % (15-50); Potassium 4.3 mmol/L (3.3-5.1); Sodium 141 mmol/L (135-145); Total Iron Binding Capacity 410 mcg/dL (228-428); Triglycerides 159 mg/dL (<150); Unsaturated Iron Binding 70 ug/dL
== END 2024-01-15 09:30 | disposition home or self-care (01) ==
LOC: HO.HMGCLDS 09:29
PROVIDERS: PCP Internal Medicine; Visit Provider Internal Medicine
DX: D50.0 Iron deficiency anemia secondary to blood loss (chronic) (principal); E11.9 Type 2 diabetes mellitus without complications; E78.5 Hyperlipidemia, unspecified; I10 Essential (primary) hypertension
CPT/HCPCS: 36415; 80048; 80061; 83036; 83540; 84450; 84460; 85025

== ENCOUNTER 2024-01-17 11:40 | Outpatient (AMB) | payer MEDICARE, SELFPAY ==
[2024-01-17 11:52] VITALS: BP 135/64; PULSE 75; O2SAT 99; BMI 29.6
--- NOTE | 2024-01-17 11:52 | A.OFFPC_ITS ---
Vital Signs 01/17/24 11:52 Height 5 ft 2 in Weight 162 lb BMI 29.6 BP 135/64 Blood Pressure Location Lt brachial Position Sitting Pulse 75 Pulse Source Pulse Oximeter Pulse Oximetry (%) 99 Oxygen Delivery Method Room Air Intake Visit Reasons: f/u labs Intake Note: Pt is here today for for lab f/u Allergies vaccine adjuvant system, AS01B lipo [From Shingrix (PF)] Allergy (Severe, Verified 01/17/24 12:20) Maldonado's Palsy varicella-zoster virus glycoprotein [From Shingrix (PF)] Allergy (Severe, Verified 01/17/24 12:20) Maldonado's Palsy valacyclovir Adverse Reaction (Intermediate, Verified 01/17/24 12:20) Hallucinations, forgetfulness and dizziness Medication List - Last Reconciled 01/17/24 by Sasha White MD blood pressure monitor (Blood Pressure Kit) As directed blood sugar diagnostic (B[employer] Ultra Test strips) test blood sugars once daily cholecalciferol (vitamin D3) 50 mcg PO DAILY citalopram 10 mg PO DAILY ferrous sulfate 325 mg PO DAILY lancets ([employer]rain[employer] Delica Lancets) test blood sugar once daily metformin 500 mg PO BID metoprolol succinate ER 50 mg PO DAILY simvastatin 20 mg PO Q2D 3 months Tobacco use date assessed: 01/17/24 Fall risk assessment: No Falls in past year Last assessed Fall Risk: 01/17/24 Dental Screening Dental Screen Date: 01/17/24 Did you have a dental visit in the last 12 months?: No Did you have a dental problem in the last 6 months where you did not have access to dental care?: No Was dental information given to patient?: Patient declined HPI f/u labs HPI Details 78 year-old lady with diabetes mellitus, hyperlipidemia, history of adenomatous polyp and AV malformations of colon status post cauterization during a double balloon enteroscopy procedure done 05/02/2022, has osteopenia, hypertension, atherosclerotic cardiovascular disease, here today for her follow up . She is been taking her medications as directed, tries to follow recommended diet. Recent labs done showed presence of normocytic normochromic anemia with normal iron levels. And hemoglobin A1c is at 6.7% with fasting lipids within normal limits. Has been complaining occasional lightheadedness and easy fatigability, but denies any abnormal bleeding reported, no hematochezia, no melena. 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 Paroxysmal atrial fibrillation Intermittent lightheadedness Thyroid nodule Type 2 diabetes mellitus without complication, with no history of insulin use Primary hyperparathyroidism Dyslipidemia (high LDL; low HDL) HTN (hypertension) Osteopenia Vitamin D deficiency Surgical History Hx of esophagogastroduodenoscopy Hx of cataract surgery Hx of total thyroidectomy Hx of cholecystectomy Hx of hysterectomy Hx of colonoscopy Family History Father Hypertension Diabetes mellitus Heart problem Congestive heart failure Carotid artery narrowing Mother Hypertension Diabetes mellitus Osteoporosis Colon polyps Social History Housing: House Alcohol intake: current Alcohol intake frequency: does not drink Patient Tobacco Use Status: Former Tobacco user Years Smoked: 50 +/- e-Cigarette/Vaping Use: Never Used service: No Current occupational status: retired Cognitive needs: No Hearing needs: No Vision needs: Yes Questionnaire PHQ-9 Over the last 2 weeks, how often have you been bothered by any of the following problems? 1. Little interest or pleasure in doing things: not at all 2. Feeling down, depressed, or hopeless: not at all 3. Trouble falling or staying asleep, or sleeping too much: not at all 4. Feeling tired or having little energy: not at all 5. Poor appetite or overeating: not at all 6. Feeling bad about yourself - or that you are a failure or have let yourself or your family down: not at all 7. Trouble concentrating on things, such as reading the newspaper or watching television: more than half the days 8. Moving or speaking so slowly that other people could have noticed. Or the opposite - being so fidgety or restless that you have been moving around a lot more than usual: not at all 9. Thoughts that you would be better off or of hurting yourself in some way: not at all Total score: 2 Depression Screening Interpretation: Negative Depression Screening Done: Yes 95684 - PHQ-9 Billing: Yes Source: Developed by Drs. Buck Caballero, Aron Villarreal and colleagues, with an educational farzda from [employer]. Thrive Questionnaire Date Thrive assessed: 08/07/23 I am a: Patient What is your living situation today?: I have a steady place to live Within the past 12 months, did the food you bought not last and you didn't have the money to get more?: Never true Within the past 12 months, did you worry whether your food would run out before you got money to buy more?: Never true Do you have trouble paying for medicines?: No Do you have trouble getting transportation to medical appointments?: No Do you have trouble paying your heating and electricity bill?: No Do you have trouble taking care of your child, family member or friend?: No Do you have trouble with day-to-day activities such as bathing, preparing meals, shopping, managing finances, etc.?: No Are you interested in more education?: No Please select the resources that you would like help with: None Currently or been in a relationship where the following occur: No concerns reported THRIVE Score: 0 AUDIT C Alcohol Use Questionnaire (AUDIT-C) 1. How often do you have a drink containing alcohol?: Never Total Score: 0 DAVID-7 AMB Questionnaire DAVID-7 Date DAVID - 7 assessed: 08/07/23 Feeling nervous, anxious, or on edge: 0 = Not at all Not being able to stop or control worryin = Not at all Worrying too much about different things: 0 = Not at all Trouble relaxin = Not at all Being so restless that it is hard to sit still: 0 = Not at all Becoming easily annoyed or irritable: 0 = Not at all Feeling afraid as if something awful might happen: 0 = Not at all Total DAVID-7 score (0-4 normal; 5-9 mild; 10-14 moderate; 15-21 severe): 0 Source: Developed by Drs. Buck Caballero, Aron Villarreal and colleagues, with an educational farzad from [employer]. DAVID-7 Assessment Billing DAVID-7 Assessment Tool: DAVID-7 Assessment 73442 Review of Systems Const Reports as per HPI ENT Reports no additional complaints Card Reports as per HPI, Denies chest pain, Denies chest pain with activity, Denies syncope, Denies rapid heart rate, Denies pedal edema, Denies edema, Denies leg edema, Denies palpitations and Denies orthopnea Resp Reports as per HPI and Denies cough GI Denies abdominal pain, Denies melena, Denies hematochezia, Denies change in bowel habits, Denies change in stool character and Denies heartburn Musc Denies abnormal gait, Denies muscle cramps, Denies muscle weakness, Denies numbness, Denies radiating pain into limb and Denies tingling Skin/Breast Denies breast pain, Denies breast mass and Denies rash Neuro Denies abnormal gait, Denies syncope, Denies numbness and Denies tingling Endo Denies palpitations Dong/Lymph Reports no additional complaints Physical exam (Primary Care) Vital Signs: Last Vital Signs Pulse 75 01/17/24 11:52 BP 135/64 01/17/24 11:52 Pulse Ox 99 01/17/24 11:52 Oxygen Delivery Method Room Air 01/17/24 11:52 BMI result Body Mass Index 29.6 Tobacco/Smoking Status: Tobacco use Status Tobacco use date assessed 01/17/24 01/17/24 11:56 Patient Tobacco Use Status Former Tobacco user 01/17/24 11:56 e-Cigarette/Vaping Use Never Used 01/17/24 11:56 PHQ-9: PHQ-9 Score PHQ-9: Total score 2 01/17/24 12:42 Depression Screening Interpretation: Negative Thrive Assessment: Date of Thrive Assessment Date Thrive assessed 08/07/23 01/17/24 11:56 Currently or been in a relationship where the following occur: No concerns reported Const Other: Alert elderly female, no acute cardiorespiratory distress, ambulatory with nor mal gait Orientation/consciousness: patient oriented x3 HENMT Face and sinus: Yes face symmetric Mouth: Normal oral and palatal mucosa present and moist mucous membranes Eyes General: appearance normal, both eyes and all related structures Neck Other: Supple, no lymphadenopathy, full range of motion Resp Effort & Inspection: normal respiratory effort and able to speak in complete sentences Auscultation: clear to auscultation bilaterally Cardio Other: S1-S2 present regular rate and rhythm GI Other: Normal bowel sounds, soft, nontender, no mass palpated General: Yes no CVA tenderness Back/Spine/Pelvis Back: no CVA tenderness and No back tenderness Neuro Other: No speech abnormality noted on today's visit General: patient oriented x3, gait normal, tone normal, moves all extremities, Normal light touch and pain sensation, no focal motor deficits and CN's II-XI intact bilaterally Extrem General: Yes full ROM, Yes no joint enlargement, Yes no pedal edema, Yes no calf tenderness and Yes normal gait Psych Appearance: grossly normal Mental Status: mental status grossly normal Speech and movement: Normal speech and movement present Affect: normal affect Attitude: cooperative Thought process: Normal thought process present Results Reviewed Results Reviewed: mendy: Katelynn Cisneros Age/Sex: 78/F : 1945 Unit#: [id number] Attend Dr: Sasha White MD Re01/15/24 Status: DEP REF Location: [facility] Disch: SPEC : [id number] JOE: 01/15/24 STATUS: COMP REQ : [id number] RECD: 01/15/[address]: Sasha White MD COMP: 01/15/24 ENTERED: 01/15/24 [facility] DR: ORDERED: CBC Auto Diff Test Result Flag Reference WBC 8.0 4.8-10.8 X10*3/uL RBC 3.70 L 4.20-5.50 X10*6/uL HGB 10.6 L 12.0-16.0 g/dl HCT 32.8 L 37.0-47.0 % MCV 88.6 80.0-98.0 fL MCH 28.6 27.0-33.0 pg MCHC 32.3 31.0-35.0 g/dl RDW 14.4 11.0-16.0 % PLT 390 160-400 X10*3/uL MPV 9.9 9.4-12.3 fL Neut Pct Auto 69.1 45-73 % ImGran Pct Auto 0.5 H 0.0-0.4 % Lymp Pct Auto 18.6 L 20-40 % [place] Pct Auto 8.5 2-11 % Eos Pct Auto 2.4 0-4 % Baso Pct Auto 0.9 0-2 % NRBC Pct Auto 0.0 0.0-0.2 /100WBC ANC Neut Abs # 5.5 2.0-8.3 x10*3/uL ImGran Abs Auto 0.04 H 0.00-0.03 X10*3/uL Lymph Abs Auto 1.5 1.2-4.9 X10*3/uL [place] Abs Auto 0.7 0.1-1.2 X10*3/uL Eos Abs Auto 0.2 0.0-0.4 X10*3/uL Baso Abs Auto 0.1 0.0-0.2 X10*3/uL NRBC Abs Auto 0.000 0.0-0.012 X10*3/uL Name: Katelynn Cisneros Age/Sex: 78/F : 1945 Unit#: [id number] Attend Dr: Sasha White MD Re01/15/24 Status: DEP REF [facility] Disch: SPEC : [id number] JOE: 01/15/24-1012 STATUS: COMP REQ : [id number] RECD: 01/15/24-[address]: Sasha White MD COMP: 01/15/24-0 ENTERED: 01/15/24-1011 [facility]: ORDERED: Met Prof Fast, IRON PROF, AST, ALT, Lipid Panel Test Result Flag Reference Sodium 141 135-145 mmol/L Potassium 4.3 3.3-5.1 mmol/L CL 106 96-108 mmol/L CO2 27 22-29 mmol/L Gap 12 12-20 BUN 7 L 9-16 mg/dL Creat 0.82 0.5-1.4 mg/dL EGFR > 60 NOTE: For -[place] individuals, multiply the result by 1.210. Chronic Kidney Disease: Estimated GFR < 60 mL/min/1.73m2 Severe Kidney Disease: Estimated GFR < 15 mL/min/1.73m2 FBS 135 H 60-99 mg/dL A fasting glucose of 126 mg/dl or greater on more than one occasion is considered diagnostic of diabetes. CA 9.1 8.4-10.2 mg/dL Iron 340 H 30-160 mcg/dL TIBC 410 228-428 mcg/dL Saturation 83 H 15-50 % UIBC 70 ug/dL AST (GOT) 22 5-31 U/L ALT (GPT) 23 0-31 U/L Triglyceride 159 H <150 mg/dL Desirable Triglyceride: less than 150 mg/dL Borderline High Triglyceride 150-199 mg/dL High Triglyceride: 200-499 mg/dL Very High Triglyceride: greater than or equal to 5OO mg/dL Cholesterol 180 <200 mg/dL Desirable Cholesterol: less than 200 mg/dL Borderline High Cholesterol: 200-239 mg/dL High Cholesterol: greater than 239 mg/dL LDL Calculated 94 <100 mg/dL Desirable LDL: less than 100 mg/dL Near Optimal/Above Optimal LDL: 110-129 mg/dL Borderline High LDL: 130-159 mg/dL High LDL: 160-189 mg/dL Very High LDL: greater than or equal to 190 mg/dL HDL 55 >40 mg/dL Desirable HDL: greater than 40 mg/dL Note: This HDL assay may give artificially low results in patients with liver disease. Laboratory Tests 08/03/23 01/15/24 08:33 10:12 Estimat Average Glucose 146 Hemoglobin A1c % 6.7 H Microalb/Creat Ratio 20.0 Assessment and Plan Assessment & Plan (1) Type 2 diabetes mellitus without complication, with no history of insulin use: Code(s): E11.9 - Type 2 diabetes mellitus without complications Plan: Sugar well controlled. With current hemoglobin A1c at 6.7%. Continued on metformin 500 mg 1 tablet twice a day, in reinforced importance of following recommended diet and staying active. (2) HTN (hypertension), benign: Code(s): I10 - Essential (primary) hypertension Plan: Currently taking metoprolol succinate ER 500 mg once a day. Blood Pressure stable and controlled on present treatment (3) Dyslipidemia (high LDL; low HDL): Code(s): E78.5 - Hyperlipidemia, unspecified Plan: Reviewed recent fasting lipid profile with patient with levels within normal limits . Continue taking simvastatin 20 mg 1 tablet every other day , in addition to adherence to low-cholesterol diet and regular exercise, at least 30 minutes 3 to 4 times a week. Advised patient to make healthy food choices, eat more fruits, vegetables, whole grains, wild caught fish and low-fat dairy. Limit amount of meat and fried or fatty food products, as well as processed foods and fast foods. Follow-up scheduled with repeat fasting lipid panel in 6 months. 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 Will repeat another CBC, iron profile and ferritin level in 6 months. Denies any abnormal bleeding tendencies Orders: Orders IRON PROFILE 06/22/24 D50.0 - Iron deficiency anemia secondary to blood loss (chronic), E11.9 - Type 2 diabetes mellitus without complications, E55.9 - Vitamin D deficiency, unspecified, E78.5 - Hyperlipidemia, unspecified, I10 - Essential (primary) hypertension, M85.80 - Other specified disorders of bone density and structure, unspecified site Complete Blood Count Auto Diff 06/22/24 D50.0 - Iron deficiency anemia second tay to blood loss (chronic), E11.9 - Type 2 diabetes mellitus without complications, E55.9 - Vitamin D deficiency, unspecified, E78.5 - Hyperlipidemia, unspecified, I10 - Essential (primary) hypertension, M85.80 - Other specified disorders of bone density and structure, unspecified site Aspartate Amino Transferase 06/22/24 D50.0 - Iron deficiency anemia secondary to blood loss (chronic), E11.9 - Type 2 diabetes mellitus without complications, E55.9 - Vitamin D deficiency, unspecified, E78.5 - Hyperlipidemia, unspecified, I10 - Essential (primary) hypertension, M85.80 - Other specified disorders of bone density and structure, unspecified site Alanine Aminotransferase 06/22/24 D50.0 - Iron deficiency anemia secondary to blood loss (chronic), E11.9 - Type 2 diabetes mellitus without complications, E55.9 - Vitamin D deficiency, unspecified, E78.5 - Hyperlipidemia, unspecified, I10 - Essential (primary) hypertension, M85.80 - Other specified disorders of bone density and structure, unspecified site Basic Metabolic Panel Fasting 06/22/24 D50.0 - Iron deficiency anemia secondary to blood loss (chronic), E11.9 - Type 2 diabetes mellitus without complications, E55.9 - Vitamin D deficiency, unspecified, E78.5 - Hyperlipidemia, unspecified, I10 - Essential (primary) hypertension, M85.80 - Other specified disorders of bone density and structure, unspecified site Vitamin D 25-OH Total 06/22/24 D50.0 - Iron deficiency anemia secondary to blood loss (chronic), E11.9 - Type 2 diabetes mellitus without complications, E55.9 - Vitamin D deficiency, unspecified, E78.5 - Hyperlipidemia, unspecified, I10 - Essential (primary) hypertension, M85.80 - Other specified disorders of bone density and structure, unspecified site Hemoglobin A1c 06/22/24 D50.0 - Iron deficiency anemia secondary to blood loss (chronic), E11.9 - Type 2 diabetes mellitus without complications, E55.9 - Vitamin D deficiency, unspecified, E78.5 - Hyperlipidemia, unspecified, I10 - Essential (primary) hypertension, M85.80 - Other specified disorders of bone density and structure, unspecified site Lipid Panel 06/22/24 D50.0 - Iron deficiency anemia secondary to blood loss (chronic), E11.9 - Type 2 diabetes mellitus without complications, E55.9 - Vitamin D deficiency, unspecified, E78.5 - Hyperlipidemia, unspecified, I10 - Essential (primary) hypertension, M85.80 - Other specified disorders of bone density and structure, unspecified site Microalbumin, Random (w Creat) 06/22/24 D50.0 - Iron deficiency anemia secondary to blood loss (chronic), E11.9 - Type 2 diabetes mellitus without complications, E55.9 - Vitamin D deficiency, unspecified, E78.5 - Hyperlipidemia, unspecified, I10 - Essential (primary) hypertension, M85.80 - Other specified disorders of bone density and structure, unspecified site Medications: New blood-glucose meter (OneTouch Ultra2 Meter) Check fasting blood sugar twice a day before meals 1 ea 0RF E11.9 - Type 2 diabetes mellitus without complications Refilled blood sugar diagnostic (OneTouch Ultra Test strips) test blood sugars once daily 100 ea 3RF E11.9 - Type 2 diabetes mellitus without complications Coding Level of Care Code Est Pt Level 4 (28707) Complex EM visit Add On G2211 Diagnoses Type 2 diabetes mellitus without complication, with no history of insulin use E11.9 HTN (hypertension), benign I10 Dyslipidemia (high LDL; low HDL) E78.5 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
== END 2024-01-17 12:41 | disposition home or self-care (01) ==
PROVIDERS: PCP Internal Medicine; Visit Provider Internal Medicine
DX: E11.9 Type 2 diabetes mellitus without complications (principal); I10 Essential (primary) hypertension; E78.5 Hyperlipidemia, unspecified; D50.0 Iron deficiency anemia secondary to blood loss (chronic)

== ENCOUNTER → 2024-01-17 11:40 | Outpatient (BNVA) | payer MEDICARE, SELFPAY | PROVIDERS: PCP Internal Medicine; Visit Provider Internal Medicine | DX: E11.9 Type 2 diabetes mellitus without complications (principal); I10 Essential (primary) hypertension; E78.5 Hyperlipidemia, unspecified; D50.0 Iron deficiency anemia secondary to blood loss (chronic) | CPT/HCPCS: 96127; 99212 ==

== ENCOUNTER → 2024-01-18 07:59 | Outpatient (REF) | payer MEDICARE, SELFPAY ==
--- NOTE | 2024-01-18 08:04 | HM_ITS ---
Conclusion: 1. Baseline was normal sinus rhythm with average heart of 69 beats per minute 2. No significant pauses noted 3. Frequent PACs noted with total burden of 1.2% with frequent short runs of SVTs, fastest at 167 beats per minute and longest at 47 beats per minute which appears to be ectopic atrial tachycardia. No sustained atrial fibrillation noted 4. Occasional PVCs noted 5. Patient marked 2 events on the monitor correlated with either PVC or PAC 6. Patient was diary entry correlated with artifact MTDD
--- NOTE | 2024-01-18 08:04 | CA_ITS ---
Transthoracic Echocardiogram Patient (Last, First, Middle): Katelynn Cisneros E Gender: Female Date of : 1945 Age: 78 Procedure Date: 01/18/2024 Procedure Type: Transthoracic Echocardiogram Location: OP Height: 157.48 cm Weight: 73.48 kg BSA: 1.75 m2 Heart Rate: bpm BP: 140 / 68 mmHg Administration Dean: TO Referring MD: Lianna Koenig NP Symptoms: I48.0 - Paroxysmal atrial fibrillation Study Quality: Fair/Contrast ECG Rhythm: Sinus Conclusions: - The left ventricular systolic function is normal. The calculated ejection fraction is 64% by biplane method. - No obvious valvular pathology seen on this study. Findings Procedure Information Contrast agent, definity, is being given per protocol without apparent complications. Left Ventricle Normal left ventricular cavity size. The left ventricular systolic function is normal. The calculated ejection fraction is 64% by biplane method. There is no evidence of regional wall motion abnormalities. Evidence suggests grade I (mild) diastolic dysfunction. There is moderate septal and moderate basal asymmetric hypertrophy. Right Ventricle Normal right ventricular cavity size and systolic function. Atria The left atrium is mildly dilated. The right atrium is normal in size. Aortic Valve There is a normal trileaflet aortic valve. There is mild calcification of the aortic valve. There is no aortic valve stenosis. There is no aortic valve regurgitation. Mitral Valve The mitral valve appears normal. There is trace mitral valve regurgitation. There is no mitral valve stenosis. Pulmonic Valve The pulmonic valve is likely normal. Tricuspid Valve There is trace tricuspid valve regurgitation. There is no evidence of pulmonary hypertension. Great Vessels The asc aorta is normal in size. Venous The inferior vena cava is normal in size and collapses greater than 50% with inspiration. Pericardium/Pleural There is no evidence of pericardial effusion. Prior Study Comparison No significant change compared to prior study dated: 05/12/2022. Recommendations, Care & Conclusions No obvious valvular pathology seen on this study. Measurements 2D Linear Measurements IVSd: 1.37 0.6-0.9/0.6-1.0 cm LVIDd: 3.73 3.9-5.3/4.2-5.9 cm LVIDd Index: 2.13 2.4-3.2/2.2-3.1 cm/m2 LVIDs: 2.55 2.0-3.6 cm LVPWd: 0.81 0.7-1.1 cm LA Diam: 4.30 2.7-3.8/3.0-4.0 cm LAIDs Index: 2.46 1.5-2.3 cm/m2 LV Mass: 160.82 67-162/88-224 g LV Mass Index: 91.90 43-95/49-115 g/m2 LVOT Diam: 2.10 3.0+(-)1.3 cm 2D Systolic Function EF 4C: 61.80 >55% EF 2C: 66.20 >55% EF BiP: 63.80 >55% Mitral Valve MV Pk E: 0.71 MV PK A: 0.81 MV Decel Time: 227.00 E/A: 0.90 E'Lateral: 6.42 E'Medial: 4.24 E/E' Med: 16.80 E/E' Lat: 11.10 PHT: 66.00 MVA PHT: 3.33 Decel [place]: 3.14 Aortic Valve AoV Pk Julio: 1.54 AoV Mn Julio: 1.09 AoV VTI: 0.38 AoV Pk Grad: 9.00 Aov Mn Grad: 6.00 DARLINE Cont.VTI: 1.97 LVOT LVOT Pk Julio: 0.94 LVOT Mn Julio: 0.68 LVOT VTI: 0.22 LVOT Pk Grad: 4.00 LVOT Mn Grad: 2.00 LVOT Diam: 2.10 LVOT Area: 3.46 Diastolic Function MV Pk E: 0.71 MV Pk A: 0.81 E/A: 0.90 E'Medial: 4.24 E/E' Med: 16.80 E' Laterial: 6.42 E/E' Lat: 11.10 Right Ventricle TAPSE (mm): 20.30 TVS' Julio: 12.90 Tricuspid Valve TR Pk Julio: 2.09 TR Pk Grad: 17.00 RA Press: 3.00 RVSP: 20.00 Great Vessels Aorta Sinus of Valsalva: 2.91 2.0-3.5 cm Ao Asc: 3.30 2.1-3.4 cm Updated in Other Vendor System with Status of Final Jovon Diallo MD electronically signed on 01/20/2024 9:44:29 AM with status of Final
== END ==
LOC: HO.CARD 07:59
PROVIDERS: PCP Internal Medicine; Visit Provider Nurse Practitioner
DX: I48.0 Paroxysmal atrial fibrillation (principal); I25.10 Atherosclerotic heart disease of native coronary artery without angina pectoris; R07.9 Chest pain, unspecified
CPT/HCPCS: 93242; 93306; Q9957

== ENCOUNTER → 2024-01-18 08:04 | Outpatient (BNV) | payer MEDICARE, SELFPAY | PROVIDERS: PCP Internal Medicine; Visit Provider Internal Medicine | DX: I47.19 Other supraventricular tachycardia (principal); I49.1 Atrial premature depolarization; I49.3 Ventricular premature depolarization | CPT/HCPCS: 93244; 93306 ==

== ENCOUNTER → 2024-01-23 08:54 | Outpatient (REF) | payer MEDICARE, SELFPAY ==
--- NOTE | ~2024-01-23 | NM_ITS ---
EXERCISE MYOCARDIAL PERFUSION STUDY INDICATION: Chest pain TECHNIQUE: The patient was brought in for an exercise perfusion study on 01/23/2024. Patient performed exercise as per Raheem protocol and was injected 25 mCi of sestamibi once target heart rate was achieved. Images were obtained using the SPECT gamma camera interlaced with the gating device. Images were obtained in supine position. Resting perfusion study was performed on 01/24/2024. Patient was administered 25 mCi of sestamibi intravenously at rest. Images were then obtained in supine position. Total DLP 157 mGy-cm. Images were processed with the software and compared side to side in short axis, horizontal long axis and vertical long axis views. FINDINGS: Raw aquisition reviewed. The stress perfusion study showed no significant perfusion abnormality. Both uncorrected as well as CT attenuation corrected images were reviewed. The gated study shows normal LV systolic function with calculated LVEF of 61%. LV cavity is normal in size. The gated study shows normal wall thickening and contraction of segments. Resting study shows no significant perfusion abnormality. Gating at rest reveals normal wall motion with ejection fraction at 59%. The findings are consistent with no clear reversible or fixed perfusion abnormality. NM/NM cardiolite stress test IMPRESSION: 1. Myocardial perfusion imaging study shows probably normal myocardial perfusion. 2. Gated LVEF is 61% during stress and 59% during rest. 3. Transient ischemic dilatation not present. EKG component of the test reported separately. Electronically signed by: Jovon Diallo MD 01/24/2024 04:10 PM EDT
--- NOTE | 2024-01-23 08:57 | CA_ITS ---
Acquisition Time: 2024-01-23 08:51:03 Total Exercise Time: 00:04:30 Test Indications: Chest Pain Medications: EMAR Protocol: KEESHA Max HR: 148 BPM 103% of Pred: 143 BPM Max BP: 228/078 mmHG Max Work Load: 4.6 METS Exercise stress test exercise 4 min 30 sec of Keesha protocol stage one (manually decrease due to 100% target achieved) with 30 second recovery walk to maintain heart rate achieving 102% MPHR, with moderate SOB, with isolated PACs, with hypertensive response to exercise - max bp 228/78, with ST depressions in 2,3, aVF, V3-V6. Breathing returned to baseline with rest. Nuclear images pending. Test reviewed with Dr. Emmanuel. Referred By: Lianna Koenig Overread By: Lianna Koenig
== END ==
LOC: HO.CARD 08:54
PROVIDERS: PCP Internal Medicine; Visit Provider Nurse Practitioner
DX: R07.9 Chest pain, unspecified (principal); I48.0 Paroxysmal atrial fibrillation; I25.10 Atherosclerotic heart disease of native coronary artery without angina pectoris
CPT/HCPCS: 78452; 93017; A9500

== ENCOUNTER → 2024-01-23 08:57 | Outpatient (BNV) | payer MEDICARE, SELFPAY | PROVIDERS: PCP Internal Medicine; Visit Provider Nurse Practitioner | DX: R07.9 Chest pain, unspecified (principal) | CPT/HCPCS: 78452; 93016; 93018 ==

== ENCOUNTER 2024-02-13 10:52 | Outpatient (AMB) | payer MEDICARE, SELFPAY ==
[2024-02-13 10:54] VITALS: BP 140/62; PULSE 87; BMI 29.7
--- NOTE | 2024-02-13 10:54 | A.OFFVIS_ITS ---
Vital Signs 02/13/24 10:54 Height 5 ft 2 in Weight 162 lb 4.163 oz BMI 29.7 BP 140/62 H Blood Pressure Location Lt brachial Position Sitting Pulse 87 Pulse Source Pulse Oximeter Intake Visit Reasons: 1 yr f/up [employer] Head Required: No Accompanied by: Self / Same As Patient Allergies vaccine adjuvant system, AS01B lipo [From Shingrix (PF)] Allergy (Severe, Verified 01/17/24 12:20) Maldonado's Palsy varicella-zoster virus glycoprotein [From Shingrix (PF)] Allergy (Severe, Verified 01/17/24 12:20) Maldonado's Palsy valacyclovir Adverse Reaction (Intermediate, Verified 01/17/24 12:20) Hallucinations, forgetfulness and dizziness Medication List - Last Reconciled 02/13/24 by Jovon Diallo MD blood pressure monitor (Blood Pressure Kit) As directed blood sugar diagnostic (Mobisanteuch Ultra Test strips) test blood sugars once daily blood-glucose meter (Mobisanteuch Ultra2 Meter) Check fasting blood sugar twice a day before meals cholecalciferol (vitamin D3) 50 mcg PO DAILY citalopram 10 mg PO DAILY ferrous sulfate 325 mg PO DAILY lancets (Oscilla PowerTouch Delica Lancets) test blood sugar once daily metformin 500 mg PO BID metoprolol succinate ER 50 mg PO DAILY simvastatin 20 mg PO Q2D 3 months HPI Comments Details: Millie returns for follow-up. To recall, she was originally seen in consultation regarding shortness of breath. Following that, she was admitted to [facility] with a very low hemoglobin at 3.3. Then got blood transfusions and then GI evaluation. That issues mostly resolved at this time. Coronary CTA was completed and that shows nonobstructive CAD. More recently, she had an episode where she had some palpitations/shortness of breath in the context of getting shingles vaccine when she also developed Maldonado's palsy. She had been put on steroids at that time. Any case, those symptoms are again resolved and she states she feels fine. 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) Memory change Word finding difficulty Anemia due to gastrointestinal blood loss Paroxysmal atrial fibrillation Intermittent lightheadedness Thyroid nodule Type 2 diabetes mellitus without complication, with no history of insulin use Primary hyperparathyroidism Dyslipidemia (high LDL; low HDL) HTN (hypertension) Osteopenia Vitamin D deficiency Surgical History Hx of esophagogastroduodenoscopy Hx of cataract surgery Hx of total thyroidectomy Hx of cholecystectomy Hx of hysterectomy Hx of colonoscopy Family History Father Hypertension Diabetes mellitus Heart problem Congestive heart failure Carotid artery narrowing Mother Hypertension Diabetes mellitus Osteoporosis Colon polyps Social History Housing: House Alcohol intake: current Alcohol intake frequency: does not drink Patient Tobacco Use Status: Former Tobacco user Years Smoked: 50 +/- e-Cigarette/Vaping Use: Never Used service: No Current occupational status: retired Cognitive needs: No Hearing needs: No Vision needs: Yes Review of Systems Const Denies chills, Denies fatigue, Denies fever(s), Denies frequent falls, Denies weakness, Denies weight gain and Denies weight loss ENT Denies dizziness Card Denies chest pain, Denies leg edema, Denies lightheadedness, Denies palpitations, Denies dyspnea and Denies dyspnea on exertion Resp Denies cough, Denies dyspnea and Denies dyspnea on exertion GI Denies hematochezia Musc Denies abnormal gait, Denies muscle weakness, Denies numbness, Denies radiating pain into limb and Denies tingling Neuro Denies abnormal gait, Denies dizziness, Denies frequent falls, Denies numbness, Denies tingling and Denies weakness Endo Denies fatigue and Denies palpitations Physical Exam Vital Signs: Last Vital Signs Pulse 87 02/13/24 10:54 BP 140/62 H 02/13/24 10:54 BMI result Body Mass Index 29.7 Const General: comfortable and no acute distress Orientation/consciousness: patient oriented x3 HEENT Other: Unremarkable Head: Yes normal to inspection Neck Neck: Yes normal visual inspection Chest Chest palpation & inspection: normal inspection of the chest Resp Auscultation: clear to auscultation bilaterally Cardio Palpation: normal PMI Heart sounds: S1 normal heart sound present, S2 normal heart sound present, no gallops, no murmurs and no rubs GI Palpation (GI): Soft to palpation Back/Spine/Pelvis Other: unremarkable Skin General skin exam: no rashes or lesions noted Neuro General: patient oriented x3 Extrem General: Yes normal to inspection Psych Mental Status: mental status grossly normal Assessment & Plan Assessment & Plan (1) Atherosclerotic cardiovascular disease: Code(s): I25.10 - Atherosclerotic heart disease of [place] coronary artery without angina pectoris Category: Medical Plan: Coronary CT 03/2022 shows only mild to moderate CAD. Nothing hemodynamically significant. No angina. Myocardial perfusion imaging study from 01/2024 shows normal perfusion. In the exercise portion, 4.6 METS and hypertensive blood pressure response. Clinically, no angina. Continue beta-blockers. Statins. She has side effects and hence listed to be just taking alternate days. LDL is acceptable. (2) Paroxysmal atrial fibrillation: Code(s): I48.0 - Paroxysmal atrial fibrillation Category: Medical Plan: Isolated occurrence when she was severely anemic. No definitive recurrences. Hence no clear indication for atrial fibrillation especially with GI bleed/severe anemia history. (3) Hemorrhage of gastrointestinal tract: Code(s): K92.2 - Gastrointestinal hemorrhage, unspecified Category: Medical Plan: Thought to be from bleeding AVMs. Seems they were cauterized by GI at [facility]. Mild anemia but nothing as profound as in the past. Coding Level of Care Code Est Pt Level 4 (66845) Diagnoses Atherosclerotic cardiovascular disease I25.10 Paroxysmal atrial fibrillation I48.0 Hemorrhage of gastrointestinal tract K92.2
== END 2024-02-13 11:08 | disposition home or self-care (01) ==
PROVIDERS: PCP Internal Medicine; Visit Provider Internal Medicine
DX: I25.10 Atherosclerotic heart disease of native coronary artery without angina pectoris (principal); I48.0 Paroxysmal atrial fibrillation; K92.2 Gastrointestinal hemorrhage, unspecified
CPT/HCPCS: 99214

== ENCOUNTER → 2024-02-13 10:52 | Outpatient (BNVA) | payer MEDICARE, SELFPAY | PROVIDERS: PCP Internal Medicine; Visit Provider Internal Medicine | DX: I25.10 Atherosclerotic heart disease of native coronary artery without angina pectoris (principal); I10 Essential (primary) hypertension; I48.0 Paroxysmal atrial fibrillation; K92.2 Gastrointestinal hemorrhage, unspecified | CPT/HCPCS: 99212 ==

== ENCOUNTER 2024-07-15 09:31 | Outpatient (REF) | payer MEDICARE, SELFPAY ==
[2024-07-15 13:34] LABS: MANUAL DIFF FLAG NO
[2024-07-15 13:43] LABS: Basophils Absolute Auto 0.1 X10*3/uL (0.0-0.2); Basophils Percent Auto 1.1 % (0-2); Eosinophils Absolute Auto 0.2 X10*3/uL (0.0-0.4); Eosinophils Percent Auto 3.2 % (0-4); Hematocrit 37.9 % (37.0-47.0); Hemoglobin 12.6 g/dl (12.0-16.0); Imm Gran Abs Auto 0.04 X10*3/uL (0.00-0.03); Imm Gran Pct Auto 0.6 % (0.0-0.4); Lymphocytes Absolute Auto 1.6 X10*3/uL (1.2-4.9); Mean Corpuscular HGB Conc 33.2 g/dl (31.0-35.0); Mean Corpuscular Hemoglobin 28.8 pg (27.0-33.0); Mean Corpuscular Volume 86.7 fL (80.0-98.0); Mean Platelet Volume 10.2 fL (9.4-12.3); Monocytes Absolute Auto 0.6 X10*3/uL (0.1-1.2); Monocytes Percent Auto 8.2 % (2-11); Neutrophils Absolute Auto 4.5 x10*3/uL (2.0-8.3); Neutrophils Percent Auto 63.9 % (45-73); Platelet Count 371 X10*3/uL (160-400); Red Blood Count 4.37 X10*6/uL (4.20-5.50); Red Cell Distribution Width 14.7 % (11.0-16.0); White Blood Count 7.1 X10*3/uL (4.8-10.8)
[2024-07-15 13:46] LABS: Estimated Average Glucose 166 mg/dL; Hemoglobin A1c % 7.4 % (<6.0); Total Hemoglobin (HGBA1C) 3294.7726 umol/L
[2024-07-15 13:55] LABS: Alanine Aminotransferase 19 U/L (0-31); Anion Gap 14 (12-20); Aspartate Amino Transferase 26 U/L (5-31); Blood Urea Nitrogen 9 mg/dL (9-16); Calcium 9.2 mg/dL (8.4-10.2); Carbon Dioxide 26 mmol/L (22-29); Chloride 102 mmol/L (96-108); Cholesterol 230 mg/dL (<200); Estimated Glomerular Filt Rate > 60; Glucose Fasting 156 mg/dL (60-99); HDL Cholesterol 56 mg/dL (>40); Iron 152 mcg/dL (30-160); LDL Cholesterol Calculated 140 mg/dL (<100); Percent Iron Saturation 43 % (15-50); Potassium 4.2 mmol/L (3.3-5.1); Sodium 138 mmol/L (135-145); Total Iron Binding Capacity 354 mcg/dL (228-428); Triglycerides 172 mg/dL (<150); Unsaturated Iron Binding 202 ug/dL
[2024-07-15 14:12] LABS: Creatinine Urine 52.62 mg/dL; Vitamin D 25-OH Total 54.8 ng/mL (>30)
== END 2024-07-15 09:32 | disposition home or self-care (01) ==
LOC: HO.HMGCLDS 09:31
PROVIDERS: PCP Internal Medicine; Visit Provider Internal Medicine
DX: M85.80 Other specified disorders of bone density and structure, unspecified site (principal); I10 Essential (primary) hypertension; E78.5 Hyperlipidemia, unspecified; E55.9 Vitamin D deficiency, unspecified; E11.9 Type 2 diabetes mellitus without complications; D50.0 Iron deficiency anemia secondary to blood loss (chronic)
CPT/HCPCS: 36415; 80048; 80061; 82043; 82306; 82570; 83036; 83540; 84450; 84460; 85025

== ENCOUNTER 2024-07-17 08:09 | Outpatient (AMB) | payer MEDICARE, SELFPAY ==
--- NOTE | 2024-07-17 08:20 | MHC.PC.OV ---
Vital Signs 07/17/24 08:21 Height 5 ft 2 in Weight 164 lb BMI 30.0 BP 152/62 H Blood Pressure Location Lt brachial Position Sitting Respiration 16 Pulse 66 Pulse Source Pulse Oximeter Temp 98.0 F Temp Source Oral Pulse Oximetry (%) 98 Oxygen Delivery Method Room Air Intake Visit Reasons: 6 months f/up Intake Note: Pt is here today for her 6mo. f/u Allergies vaccine adjuvant system, AS01B lipo [From Shingrix (PF)] Allergy (Severe, Verified 07/17/24 08:37) Maldonado's Palsy varicella-zoster virus glycoprotein [From Shingrix (PF)] Allergy (Severe, Verified 07/17/24 08:37) Maldonado's Palsy valacyclovir Adverse Reaction (Intermediate, Verified 07/17/24 08:37) Hallucinations, forgetfulness and dizziness Medication List - Last Reconciled 07/17/24 by Sasha White MD blood pressure monitor (Blood Pressure Kit) As directed blood sugar diagnostic ([employer]uch Ultra Test strips) test blood sugars once daily blood-glucose meter (net[employer]uch Ultra2 Meter) Check fasting blood sugar twice a day before meals cholecalciferol (vitamin D3) 50 mcg PO DAILY citalopram 10 mg PO DAILY ferrous sulfate 325 mg PO DAILY lancets (Sev[employer]Touch Delica Lancets) test blood sugar once daily metformin 500 mg PO BID metoprolol succinate ER 50 mg PO DAILY simvastatin 20 mg PO Q2D 3 months Tobacco use date assessed: 07/17/24 Fall risk assessment: No Falls in past year Last assessed Fall Risk: 07/17/24 Dental Screening Dental Screen Date: 07/17/24 Did you have a dental visit in the last 12 months?: No Did you have a dental problem in the last 6 months where you did not have access to dental care?: No Was dental information given to patient?: No HPI 6 months f/up HPI Details 78 year-old lady with diabetes mellitus, hyperlipidemia, history of adenomatous polyp and AV malformations of colon status post cauterization during a double balloon enteroscopy procedure done 05/02/2022, has osteopenia, hypertension, atherosclerotic cardiovascular disease, here today for her follow up . Patient states that she has been taking her medications as directed but has not been off her diet this past few months, with a holiday his and birthday celebrations in the last several months. She also has not been walking or exercising as much due to the weather. 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) Memory change Word finding difficulty Anemia due to gastrointestinal blood loss Paroxysmal atrial fibrillation Intermittent lightheadedness Thyroid nodule Type 2 diabetes mellitus without complication, with no history of insulin use Primary hyperparathyroidism Dyslipidemia (high LDL; low HDL) HTN (hypertension) Osteopenia Vitamin D deficiency Surgical History Hx of esophagogastroduodenoscopy Hx of cataract surgery Hx of total thyroidectomy Hx of cholecystectomy Hx of hysterectomy Hx of colonoscopy Family History Father Hypertension Diabetes mellitus Heart problem Congestive heart failure Carotid artery narrowing Mother Hypertension Diabetes mellitus Osteoporosis Colon polyps Social History Housing: House Alcohol intake: current Alcohol intake frequency: does not drink Patient Tobacco Use Status: Former Tobacco user Years Smoked: 50 +/- e-Cigarette/Vaping Use: Never Used service: No Current occupational status: retired Cognitive needs: No Hearing needs: No Vision needs: Yes Questionnaire PHQ-9 Over the last 2 weeks, how often have you been bothered by any of the following problems? 1. Little interest or pleasure in doing things: not at all 2. Feeling down, depressed, or hopeless: not at all 3. Trouble falling or staying asleep, or sleeping too much: not at all 4. Feeling tired or having little energy: not at all 5. Poor appetite or overeating: not at all 6. Feeling bad about yourself - or that you are a failure or have let yourself or your family down: not at all 7. Trouble concentrating on things, such as reading the newspaper or watching television: not at all 8. Moving or speaking so slowly that other people could have noticed. Or the opposite - being so fidgety or restless that you have been moving around a lot more than usual: not at all 9. Thoughts that you would be better off or of hurting yourself in some way: not at all Total score: 0 Depression Screening Interpretation: Negative Depression Screening Done: Yes 44411 - PHQ-9 Billing: Yes Source: Developed by Drs. Buck Caballero, Myra Littlejohn, Aron Brumfield and colleagues, with an educational farzad from [facility]. Thrive Questionnaire Date Thrive assessed: 07/17/24 I am a: Patient What is your living situation today?: I have a steady place to live Within the past 12 months, did the food you bought not last and you didn't have the money to get more?: Never true Within the past 12 months, did you worry whether your food would run out before you got money to buy more?: Never true Do you have trouble paying for medicines?: No Do you have trouble getting transportation to medical appointments?: No Do you have trouble paying your heating and electricity bill?: No Do you have trouble taking care of your child, family member or friend?: No Do you have trouble with day-to-day activities such as bathing, preparing meals, shopping, managing finances, etc.?: No Are you currently unemployed and looking for a job?: No Are you interested in more education?: No Please select the resources that you would like help with: None Currently or been in a relationship where the following occur: I choose not to answer THRIVE Score: 0 AUDIT C Alcohol Use Questionnaire (AUDIT-C) 1. How often do you have a drink containing alcohol?: Never Total Score: 0 DAVID-7 AMB Questionnaire DAVID-7 Date DAVID - 7 assessed: 07/17/24 Feeling nervous, anxious, or on edge: 0 = Not at all Not being able to stop or control worryin = Not at all Worrying too much about different things: 0 = Not at all Trouble relaxin = Not at all Being so restless that it is hard to sit still: 0 = Not at all Becoming easily annoyed or irritable: 0 = Not at all Feeling afraid as if something awful might happen: 0 = Not at all Total DAVID-7 score (0-4 normal; 5-9 mild; 10-14 moderate; 15-21 severe): 0 Source: Developed by Drs. Buck Cablalero, Myra Littlejohn, Aron Brumfield and colleagues, with an educational farzad from [facility]. DAVID-7 Assessment Billing DAVID-7 Assessment Tool: DAVID-7 Assessment 03676 Review of Systems Const Denies chills, Denies difficulty sleeping, Denies fatigue, Denies fever(s) and Denies weakness Eyes Details: Has appointment for diabetes retinopathy screening at [facility] February 2025 ENT Reports no additional complaints Card Denies chest pain, Denies chest pain with activity, Denies syncope, Denies rapid heart rate, Denies edema and Denies palpitations Resp Denies cough GI Denies abdominal pain, Denies melena, Denies hematochezia, Denies change in bowel habits, Denies change in stool character and Denies heartburn Reports no additional complaints Musc Denies abnormal gait, Denies muscle cramps, Denies muscle weakness, Denies numbness, Denies radiating pain into limb and Denies tingling Skin/Breast Denies breast pain, Denies breast mass and Denies rash Neuro Details: Still has some word-finding difficulties after Maldonado's palsy Denies abnormal gait, Denies syncope, Denies numbness, Denies tingling and Denies weakness Psych Reports no additional complaints Endo Denies fatigue and Denies palpitations Dong/Lymph Reports no additional complaints Aller/Immun Reports no additional complaints Physical exam (Primary Care) Vital Signs: Last Vital Signs Temp 98.0 F 07/17/24 08:21 Pulse 66 07/17/24 08:21 Resp 16 07/17/24 08:21 BP 152/62 H 07/17/24 08:21 Pulse Ox 98 07/17/24 08:21 Oxygen Delivery Method Room Air 07/17/24 08:21 BMI result Body Mass Index 30.0 Tobacco/Smoking Status: Tobacco use Status Tobacco use date assessed 07/17/24 07/17/24 08:27 Patient Tobacco Use Status Former Tobacco user 07/17/24 08:22 e-Cigarette/Vaping Use Never Used 07/17/24 08:22 PHQ-9: PHQ-9 Score PHQ-9: Total score 0 07/17/24 08:41 Depression Screening Interpretation: Negative Thrive Assessment: Date of Thrive Assessment Date Thrive assessed 07/17/24 07/17/24 08:27 Currently or been in a relationship where the following occur: I choose not to answer Const Other: Alert elderly female, no acute cardiorespiratory distress, ambulatory with normal gait Orientation/consciousness: patient oriented x3 HENMT Face and sinus: Yes face symmetric Mouth: Normal oral and palatal mucosa present and moist mucous membranes Eyes General: appearance normal, both eyes and all related structures Neck Other: Supple, no lymphadenopathy, full range of motion Resp Effort & Inspection: normal respiratory effort and able to speak in complete sentences Auscultation: clear to auscultation bilaterally Cardio Other: S1-S2 present regular rate and rhythm GI Other: Normal bowel sounds, soft, nontender, no mass palpated General: Yes no CVA tenderness Back/Spine/Pelvis Back: no CVA tenderness and No back tenderness Neuro Other: No speech abnormality noted on today's visit General: patient oriented x3, gait normal, tone normal, moves all extremities, Normal light touch and pain sensation, no focal motor deficits and CN's II-XI intact bilaterally Extrem Other: Some plantar callus noted, some thickening in toenails in both feet, intact sensation in both General: Yes full ROM, Yes no joint enlargement, Yes no pedal edema, Yes no calf tenderness and Yes normal gait Psych Appearance: grossly normal Mental Status: mental status grossly normal Speech and movement: Normal speech and movement present Affect: normal affect Attitude: cooperative Thought process: Normal thought process present Results Reviewed Results Reviewed: Name: Katelynn Cisneros Age/Sex: 79/F : 1945 Unit#: [id number] Attend Dr: Sasha White MD Re07/15/24 Status: DEP [facility] Dis[facility]: SPEC : [id number] JOE: 07/15/24 STATUS: COMP REQ : [id number] RECD: 07/15/[address]: Sasha White MD COMP: 07/15/24 ENTERED: 07/15/[address]: ORDERED: CBC Auto Diff Test Result Flag Reference WBC 7.1 4.8-10.8 X10*3/uL RBC 4.37 4.20-5.50 X10*6/uL HGB 12.6 12.0-16.0 g/dl HCT 37.9 37.0-47.0 % MCV 86.7 80.0-98.0 fL MCH 28.8 27.0-33.0 pg MCHC 33.2 31.0-35.0 g/dl RDW 14.7 11.0-16.0 % PLT 371 160-400 X10*3/uL MPV 10.2 9.4-12.3 fL Neut Pct Auto 63.9 45-73 % ImGran Pct Auto 0.6 H 0.0-0.4 % Lymp Pct Auto 23.0 20-40 % Archer Pct Auto 8.2 2-11 % Eos Pct Auto 3.2 0-4 % Baso Pct Auto 1.1 0-2 % NRBC Pct Auto 0.0 0.0-0.2 /100WBC ANC Neut Abs # 4.5 2.0-8.3 x10*3/uL ImGran Abs Auto 0.04 H 0.00-0.03 X10*3/uL Lymph Abs Auto 1.6 1.2-4.9 X10*3/uL Archer Abs Auto 0.6 0.1-1.2 X10*3/uL Eos Abs Auto 0.2 0.0-0.4 X10*3/uL Baso Abs Auto 0.1 0.0-0.2 X10*3/uL NRBC Abs Auto 0.000 0.0-0.012 X10*3/uL Name: Katelynn Cisneros Age/Sex: 79/F : 1945 Unit#: [id number] Attend Dr: Sasha White MD Re07/15/24 Status: DEP REF Location: [facility] Disch: SPEC : [id number] JOE: 07/15/24 STATUS: COMP REQ : [id number] RECD: 07/15/[address]: Sasha White MD COMP: 07/15/24 ENTERED: 07/15/24 [facility] : ORDERED: Met Prof Fast, IRON PROF, AST, ALT, Lipid Panel, Vitamin D 25-OH Test Result Flag Reference Sodium 138 135-145 mmol/L Potassium 4.2 3.3-5.1 mmol/L CL 102 96-108 mmol/L CO2 26 22-29 mmol/L Gap 14 12-20 BUN 9 9-16 mg/dL Creat 0.76 0.5-1.4 mg/dL eGFR > 60 Chronic Kidney Disease: Estimated GFR < 60 mL/min/1.73m2 Severe Kidney Disease: Estimated GFR < 15 mL/min/1.73m2 FBS 156 H 60-99 mg/dL A fasting glucose of 126 mg/dl or greater on more than one occasion is considered diagnostic of diabetes. CA 9.2 8.4-10.2 mg/dL Iron 152 30-160 mcg/dL TIBC 354 228-428 mcg/dL Saturation 43 15-50 % UIBC 202 ug/dL AST (GOT) 26 5-31 U/L ALT (GPT) 19 0-31 U/L Triglyceride 172 H <150 mg/dL Desirable Triglyceride: less than 150 mg/dL Borderline High Triglyceride 150-199 mg/dL High Triglyceride: 200-499 mg/dL Very High Triglyceride: greater than or equal to 5OO mg/dL Cholesterol 230 H <200 mg/dL Desirable Cholesterol: less than 200 mg/dL Borderline High Cholesterol: 200-239 mg/dL High Cholesterol: greater than 239 mg/dL LDL Calculated 140 H <100 mg/dL Desirable LDL: less than 100 mg/dL Near Optimal/Above Optimal LDL: 110-129 mg/dL Borderline High LDL: 130-159 mg/dL High LDL: 160-189 mg/dL Very High LDL: greater than or equal to 190 mg/dL HDL 56 >40 mg/dL Desirable HDL: greater than 40 mg/dL Note: This HDL assay may give artificially low results in patients with liver disease. Vitamin D 25-OH 54.8 >30 ng/mL Health Based Reference Values* < 20 ng/mL Deficient 20-30 ng/mL Insufficient > 30 ng/mL Sufficient *Josie BURNS. N Engl J Med. 2007;[id number] Laboratory Tests 07/15/24 09:37 Estimat Average Glucose 166 Hemoglobin A1c % 7.4 H Urine Creatinine 52.62 Urine Microalbumin 10.0 Microalb/Creat Ratio 19.0 Coding Level of Care Code Est Pt Level 4 (96592) Complex EM visit Add On G2211 Diagnoses HTN (hypertension), benign I10 Type 2 diabetes mellitus without complication, with no history of insulin use E11.9 Type 2 diabetes mellitus with hyperglycemia E11.65 Dyslipidemia (high LDL; low HDL) E78.5 Additional Codes DAVID-7 Assessment Billing - DAVID-7 Assessment Tool: DAVID-7 Assessment 51042 ([id number]) PHQ-9 - 59198 - PHQ-9 Billing: Yes ([id number]) Assessment & Plan Assessment & Plan (1) HTN (hypertension), benign: Code(s): I10 - Essential (primary) hypertension Category: Medical Plan: Blood pressure not at goal of less than 130/80. Continue metoprolol succinate ER 50 mg 1 tablet and take it at night with supper. Added olmesartan 5 mg to take 1 tablet in the morning with breakfast. Reinforced importance of following a low-salt diet. Will see her back for follow-up in October (2) Type 2 diabetes mellitus without complication, with no history of insulin use: Code(s): E11.9 - Type 2 diabetes mellitus without complications Category: Medical Plan: Hemoglobin A1c is elevated now at 7.4%. Stopped metformin 500 mg tablets and increased it to 750 mg ER 1 tablet to be taken twice a day with meals. She has an appointment with [facility] in February for retinopathy screening, referred to podiatry for diabetes foot exam up-to-date with all her vaccinations will see her back for follow-up after fasting labs done in October. She has negative microalbumin screening (3) Type 2 diabetes mellitus with hyperglycemia: Code(s): E11.65 - Type 2 diabetes mellitus with hyperglycemia Category: Medical Plan: Hemoglobin A1c is elevated now at 7.4%. Stopped metformin 500 mg tablets and increased it to 750 mg ER 1 tablet to be taken twice a day with meals. She has an appointment with [facility] in February for retinopathy screening, referred to podiatry for diabetes foot exam up-to-date with all her vaccinations will see her back for follow-up after fasting labs done in October (4) Dyslipidemia (high LDL; low HDL): Code(s): E78.5 - Hyperlipidemia, unspecified Category: Medical Plan: LDL cholesterol not at goal on last blood work. Stopped simvastatin and will switch her to rosuvastatin 5 mg to take 1 tablet every other day. Prescription sent for a 3 month supply with 1 refill. Repeat another fasting lipid panel liver enzymes, total CK level in October prior to next visit Orders: Orders Hemoglobin A1c 10/22/24 E11.65 - Type 2 diabetes mellitus with hyperglycemia, E11.9 - Type 2 diabetes mellitus without complications, E78.5 - Hyperlipidemia, unspecified, I10 - Essential (primary) hypertension, M85.80 - Other specified disorders of bone density and structure, unspecified site Alanine Aminotransferase 10/22/24 E11.65 - Type 2 diabetes mellitus with hyperglycemia, E11.9 - Type 2 diabetes mellitus without complications, E78.5 - Hyperlipidemia, unspecified, I10 - Essential (primary) hypertension, M85.80 - Other specified disorders of bone density and structure, unspecified site Aspartate Amino Transferase 10/22/24 E11.65 - Type 2 diabetes mellitus with hyperglycemia, E11.9 - Type 2 diabetes mellitus without complications, E78.5 - Hyperlipidemia, unspecified, I10 - Essential (primary) hypertension, M85.80 - Other specified disorders of bone density and structure, unspecified site Lipid Panel 10/22/24 E11.65 - Type 2 diabetes mellitus with hyperglycemia, E11.9 - Type 2 diabetes mellitus without complications, E78.5 - Hyperlipidemia, unspecified, I10 - Essential (primary) hypertension, M85.80 - Other specified disorders of bone density and structure, unspecified site Creatine Kinase Total 10/22/24 E11.65 - Type 2 diabetes mellitus with hyperglycemia, E11.9 - Type 2 diabetes mellitus without complications, E78.5 - Hyperlipidemia, unspecified, I10 - Essential (primary) hypertension, M85.80 - Other specified disorders of bone density and structure, unspecified site Basic Metabolic Panel Fasting 10/22/24 E11.65 - Type 2 diabetes mellitus with hyperglycemia, E11.9 - Type 2 diabetes mellitus without complications, E78.5 - Hyperlipidemia, unspecified, I10 - Essential (primary) hypertension, M85.80 - Other specified disorders of bone density and structure, unspecified site Vitamin D 25-OH Total 10/22/24 E11.65 - Type 2 diabetes mellitus with hyperglycemia, E11.9 - Type 2 diabetes mellitus without complications, E78.5 - Hyperlipidemia, unspecified, I10 - Essential (primary) hypertension, M85.80 - Other specified disorders of bone density and structure, unspecified site Referrals Podiatry Referral E11.65 - Type 2 diabetes mellitus with hyperglycemia Medications: New olmesartan 5 mg PO DAILY 90 tabs 1RF E11.9 - Type 2 diabetes mellitus without complications, I10 - Essential (primary) hypertension rosuvastatin 5 mg PO Q2D 3 months 45 tabs 1RF metformin ER 750 mg PO BID 3 months 180 tabs 1RF Discontinued simvastatin Discontinued Reason: Doctor's Order 20 mg PO Q2D 3 months 45 tabs 4RF metformin Discontinued Reason: Doctor's Order 500 mg PO BID 180 tabs 1RF
[2024-07-17 08:21] VITALS: BP 152/62; PULSE 66; RESP 16; TEMP 36.7; O2SAT 98
== END 2024-07-17 09:00 | disposition home or self-care (01) ==
LOC: HO.HMCC 08:10
PROVIDERS: PCP Internal Medicine; Visit Provider Internal Medicine
DX: I10 Essential (primary) hypertension (principal); E11.9 Type 2 diabetes mellitus without complications; E11.65 Type 2 diabetes mellitus with hyperglycemia; E78.5 Hyperlipidemia, unspecified

== ENCOUNTER → 2024-07-17 08:09 | Outpatient (BNVA) | payer MEDICARE, SELFPAY | PROVIDERS: PCP Internal Medicine; Visit Provider Internal Medicine | DX: I10 Essential (primary) hypertension (principal); E11.65 Type 2 diabetes mellitus with hyperglycemia; E78.5 Hyperlipidemia, unspecified | CPT/HCPCS: 96127; 99212 ==

== ENCOUNTER 2024-08-07 08:09 | Outpatient (AMB) | payer MEDICARE, SELFPAY ==
--- NOTE | 2024-08-07 08:17 | A.OFFVIS_ITS ---
Vital Signs 08/07/24 08:18 Height 5 ft 2 in Weight 165 lb 5.547 oz BMI 30.2 BP 120/80 Blood Pressure Location Lt brachial Position Sitting Pulse 68 Intake Visit Reasons: 6 mth f/up Intake Note: 6 month follow-up feeling good Nurse Tech Required: No Allergies vaccine adjuvant system, AS01B lipo [From Shingrix (PF)] Allergy (Severe, Verified 07/17/24 08:37) Maldonado's Palsy varicella-zoster virus glycoprotein [From Shingrix (PF)] Allergy (Severe, Verified 07/17/24 08:37) Maldonado's Palsy valacyclovir Adverse Reaction (Intermediate, Verified 07/17/24 08:37) Hallucinations, forgetfulness and dizziness Medication List - Last Reconciled 08/07/24 by Jovon Diallo MD blood pressure monitor (Blood Pressure Kit) As directed blood sugar diagnostic (Advanced Electron Beamsuch Ultra Test strips) test blood sugars once daily blood-glucose meter (Advanced Electron Beamsuch Ultra2 Meter) Check fasting blood sugar twice a day before meals cholecalciferol (vitamin D3) 50 mcg PO DAILY citalopram 10 mg PO DAILY ferrous sulfate 325 mg PO DAILY lancets (Advanced Electron Beamsuch Delica Lancets) test blood sugar once daily metformin ER 750 mg PO BID 3 months metoprolol succinate ER 50 mg PO DAILY olmesartan 5 mg PO DAILY rosuvastatin 5 mg PO Q2D 3 months HPI Comments Details: Millie returns for follow-up. To recall, she was originally seen in consultation regarding shortness of breath. Following that, she was admitted to [facility] with a very low hemoglobin at 3.3. Then got blood transfusions and then GI evaluation. That issues mostly resolved at this time. Coronary CTA was completed and that shows nonobstructive CAD. Overall, she states she feels good. Unable to take statins daily due to muscle aches and hence she takes him 3 times a week but cholesterol levels are going up. No other cardiac concerns whatsoever. No angina. 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) Memory change Word finding difficulty Anemia due to gastrointestinal blood loss Paroxysmal atrial fibrillation Intermittent lightheadedness Thyroid nodule Type 2 diabetes mellitus without complication, with no history of insulin use Primary hyperparathyroidism Dyslipidemia (high LDL; low HDL) HTN (hypertension) Osteopenia Vitamin D deficiency Surgical History Hx of esophagogastroduodenoscopy Hx of cataract surgery Hx of total thyroidectomy Hx of cholecystectomy Hx of hysterectomy Hx of colonoscopy Family History Father Hypertension Diabetes mellitus Heart problem Congestive heart failure Carotid artery narrowing Mother Hypertension Diabetes mellitus Osteoporosis Colon polyps Social History Housing: House Alcohol intake: current Alcohol intake frequency: does not drink Patient Tobacco Use Status: Former Tobacco user Years Smoked: 50 +/- e-Cigarette/Vaping Use: Never Used service: No Current occupational status: retired Cognitive needs: No Hearing needs: No Vision needs: Yes Review of Systems Const Denies chills, Denies fatigue, Denies fever(s), Denies frequent falls, Denies weakness, Denies weight gain and Denies weight loss ENT Denies dizziness Card Denies chest pain, Denies leg edema, Denies lightheadedness, Denies palpitations, Denies dyspnea, Denies dyspnea on exertion, Denies orthopnea and Denies other (loss of consciousness) Resp Denies cough, Denies dyspnea and Denies dyspnea on exertion GI Denies hematochezia and Denies change in stool character Musc Denies abnormal gait, Denies muscle weakness, Denies numbness, Denies radiating pain into limb and Denies tingling Neuro Denies abnormal gait, Denies dizziness, Denies frequent falls, Denies numbness, Denies tingling and Denies weakness Endo Denies fatigue and Denies palpitations Physical Exam Vital Signs: Last Vital Signs Pulse 68 08/07/24 08:18 BP 120/80 08/07/24 08:18 BMI result Body Mass Index 30.2 Const General: comfortable and no acute distress Orientation/consciousness: patient oriented x3 HEENT Other: Unremarkable Head: Yes normal to inspection Neck Neck: Yes normal visual inspection Chest Chest palpation & inspection: normal inspection of the chest Resp Auscultation: clear to auscultation bilaterally Cardio Palpation: normal PMI Heart sounds: S1 normal heart sound present, S2 normal heart sound present, no gallops, no murmurs and no rubs GI Palpation (GI): Soft to palpation Back/Spine/Pelvis Other: unremarkable Skin General skin exam: no rashes or lesions noted Neuro General: patient oriented x3 Extrem General: Yes normal to inspection Psych Mental Status: mental status grossly normal Assessment & Plan Assessment & Plan (1) Atherosclerotic cardiovascular disease: Code(s): I25.10 - Atherosclerotic heart disease of [place] coronary artery without angina pectoris Category: Medical Plan: Coronary CT 03/2022 shows only mild to moderate CAD. Nothing hemodynamically significant. No angina. Myocardial perfusion imaging study from 01/2024 shows normal perfusion. In the exercise portion, 4.6 METS and hypertensive blood pressure response. Clinically, no angina. Continue beta-blockers. Due to statin intolerance issues, try Repatha. (2) Paroxysmal atrial fibrillation: Code(s): I48.0 - Paroxysmal atrial fibrillation Category: Medical Plan: Isolated occurrence when she was severely anemic. No definitive recurrences. Hence no clear indication for atrial fibrillation especially with GI bleed/severe anemia history. (3) Hemorrhage of gastrointestinal tract: Code(s): K92.2 - Gastrointestinal hemorrhage, unspecified Category: Medical Plan: Thought to be from bleeding AVMs. Seems they were cauterized by GI at [facility]. Mild anemia but nothing as profound as in the past. Plan During this visit, I discussed the concerns surrounding the patient's hyperlipidemia and intolerance to rosuvastatin, characterized by myalgias. We explored the option of transitioning to a bi-weekly injectable therapy, suitable for those who experience adverse muscle effects from statins. The discussion included the benefits of managing her cholesterol levels effectively without inducing myalgia, the need for insurance approval, and cost considerations. The patient expressed readiness to consider this alternative treatment pending insurance authorization, and we will facilitate this transition once approved. Follow-up plans include monitoring her response to the new therapy, with instructions to contact me with any arising concerns. Patient was informed and verbally consented to the use of an ambient scribe for clinic note documentation during this visit. Medications: New evolocumab (Repatha Syringe) 140 mg subcut Q2W 1 mL 5RF Patient Instructions: - Continue current rosuvastatin regimen until insurance approval for the injectable therapy. - Once approved, switch to the bi-weekly injectable therapy as prescribed. - Monitor for any new or worsening symptoms and report them immediately. - Schedule a follow-up appointment for six months and call as needed for any concerns. - Maintain current lifestyle and dietary habits supportive of managing cholesterol levels. - Stay in touch with healthcare providers for updates on treatment approval and next steps. Coding Level of Care Code Est Pt Level 4 (06121) Complex EM visit Add On G2211 Diagnoses Atherosclerotic cardiovascular disease I25.10 Paroxysmal atrial fibrillation I48.0 Hemorrhage of gastrointestinal tract K92.2
[2024-08-07 08:18] VITALS: BP 120/80; PULSE 68; BMI 30.2
== END 2024-08-07 08:35 | disposition home or self-care (01) ==
PROVIDERS: PCP Internal Medicine; Visit Provider Internal Medicine
DX: I25.10 Atherosclerotic heart disease of native coronary artery without angina pectoris (principal); I48.0 Paroxysmal atrial fibrillation; K92.2 Gastrointestinal hemorrhage, unspecified
CPT/HCPCS: 99214; G2211

== ENCOUNTER → 2024-08-07 08:09 | Outpatient (BNVA) | payer MEDICARE, SELFPAY | PROVIDERS: PCP Internal Medicine; Visit Provider Internal Medicine | DX: I25.10 Atherosclerotic heart disease of native coronary artery without angina pectoris (principal); I48.0 Paroxysmal atrial fibrillation; K92.2 Gastrointestinal hemorrhage, unspecified; Z87.891 Personal history of nicotine dependence | CPT/HCPCS: 99212 ==

== ENCOUNTER 2024-09-03 08:07 | Outpatient (REF) | payer MEDICARE, SELFPAY | END 2024-09-03 08:08 | disposition home or self-care (01) | LOC: HO.MAMMO 08:07 | PROVIDERS: PCP Internal Medicine; Visit Provider Internal Medicine | DX: Z12.31 Encounter for screening mammogram for malignant neoplasm of breast (principal) | CPT/HCPCS: 77063; 77067 ==

== ENCOUNTER → 2024-09-03 08:15 | Outpatient (BNV) | payer MEDICARE, SELFPAY | PROVIDERS: PCP Internal Medicine; Visit Provider Internal Medicine | DX: Z12.31 Encounter for screening mammogram for malignant neoplasm of breast (principal) | CPT/HCPCS: 77063; 77067 ==

== ENCOUNTER 2024-09-26 10:46 | Outpatient (AMB) | payer MEDICARE, SELFPAY ==
--- NOTE | 2024-09-26 10:48 | A.OFFVIS_ITS ---
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 she reports worsening- takes her time to do her bills, uses wrong words or searches for words. she lives with her and her son. .she is accompanied by her daughter .Her mood is stable with citalopram she is motivated. 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) Memory change Word finding difficulty Anemia due to gastrointestinal blood loss Paroxysmal atrial fibrillation Intermittent lightheadedness Thyroid nodule Type 2 diabetes mellitus without complication, with no history of insulin use Primary hyperparathyroidism Dyslipidemia (high LDL; low HDL) HTN (hypertension) Osteopenia Vitamin D deficiency Surgical History Hx of esophagogastroduodenoscopy Hx of cataract surgery Hx of total thyroidectomy Hx of cholecystectomy Hx of hysterectomy Hx of colonoscopy Family History Father Hypertension Diabetes mellitus Heart problem Congestive heart failure Carotid artery narrowing Mother Hypertension Diabetes mellitus Osteoporosis Colon polyps Social History Housing: House Alcohol intake: current Alcohol intake frequency: does not drink Patient Tobacco Use Status: Former Tobacco user Years Smoked: 50 +/- e-Cigarette/Vaping Use: Never Used service: No Current occupational status: retired Cognitive needs: No Hearing needs: No Vision needs: Yes Review of Systems Neuro Reports Abnormal speech present Physical Exam Vital Signs: Last Vital Signs Pulse 63 09/26/24 10:52 BP 130/70 09/26/24 10:52 Pulse Ox 96 09/26/24 10:52 Oxygen Delivery Method Room Air 09/26/24 10:52 BMI result Body Mass Index 30.0 Const General: cooperative, healthy appearing and comfortable Nutritional Appearance: average body habitus Orientation/consciousness: patient oriented x3 Eyes Pupils: Equal, round and reactive pupils present Neuro General: patient oriented x3, tone normal, moves all extremities and no focal motor deficits Cranial nerves: Yes Facial sensation intact/muscles of mastication intact, Yes Equal, round and reactive pupils present, Yes Bilaterally intact EOM present, Yes Nystagmus not present, Yes Normal facial strength present and No Midline tongue present Cognition (Neuro): normal cognition Speech: Abnormal speech present Gait exam (Neuro): Normal gait present Motor exam (neuro): 5/5 motor strength present throughout Coordination: [id number] test normal Assessment & Plan Assessment & Plan (1) Memory change: Comment: mood related Code(s): R41.3 - Other amnesia Category: Medical (2) Word finding difficulty: Code(s): R47.89 - Other speech disturbances Category: Medical Plan Continue Citalopram 10 mg qd for mood Speech therapy Orders: Orders Vitamin B12 and Folate Today R41.3 - Other amnesia TSH reflex Free T4 Today R41.3 - Other amnesia Vitamin D 25-OH (D2 and D3) Today R41.3 - Other amnesia Referrals Speech and Hearing Referral R41.3 - Other amnesia, R47.89 - Other speech disturbances Coding Level of Care Code Est Pt Level 4 (04788) Complex EM visit Add On G2211 Diagnoses Memory change R41.3 Word finding difficulty R47.89
[2024-09-26 10:52] VITALS: BP 130/70; PULSE 63; O2SAT 96
== END 2024-09-26 11:21 | disposition home or self-care (01) ==
LOC: HO.HSMS 10:47
PROVIDERS: PCP Internal Medicine; Visit Provider Psychiatry & Neurology Neurology
DX: R41.3 Other amnesia (principal); R47.89 Other speech disturbances
CPT/HCPCS: 99214; G2211

== ENCOUNTER → 2024-09-26 10:46 | Outpatient (BNVA) | payer MEDICARE, SELFPAY | PROVIDERS: PCP Internal Medicine; Visit Provider Psychiatry & Neurology Neurology | DX: R41.3 Other amnesia (principal); R47.89 Other speech disturbances | CPT/HCPCS: 99212 ==

== ENCOUNTER 2024-10-10 09:35 | Outpatient (RCR) | payer MEDICARE, SELFPAY ==
--- NOTE | 2024-10-17 17:27 | MHC.SP.ADU ---
Referring provider: Karely Mcintyre MD Reason for Referral: Worsening memory issues/word finding difficulty Type of Treatment: 47203 Standardized Cognitive Performance Testing, per hour Date of Plan of Treatment: 10/10/24 Onset of Symptoms/Illness: 05/04/23 Date Treatment Started: 10/10/24 Medical Diagnosis: R47.89 Other speech disturbances R41.3 Other amnesia Primary Speech Language Diagnosis: R41.841 Cognitive communication disorder History Katelynn Cisneros is a 79 year old female referred by Karely Mcintyre MD from the Neurology and Sleep office, for a cognitive linguistic evaluation in order to reinstate speech therapy services. Katelynn was previously seen for speech therapy in early 2023 and was discharged after making progress. Patient was recently seen by Dr. Mcintyre on 09/26/24 and reported ongoing memory issues and word finding difficulty. Patient reported she takes her time to do the bills, uses the wrong words or ?has to describe words,? and overall feels ?frazzled.? Note history of Maldonado?s palsy, thyroid nodule, type 2 diabetes mellitus, hypertension, osteopenia, and vitamin D deficiency. Patient wears glasses and denies history of hearing loss. Patient indicates difficulties in the following areas: difficulty expressing thoughts, orientation/memory, problem solving, maintaining topic of conversation, being understood by others, reading/writing, and finding words. Patient completed high school and is a [place] Urdu speaker. Patient reports she never had any learning accommodations in school. 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 Patient lives with her 89 year old , whom she cares for as she reports he is physically disabled. Patient also lives with her adult son, who had moved in last year. She also has 5 other adult children. Patient enjoys exercise, painting, and spending time with her grandchildren. 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) Memory change Word finding difficulty Anemia due to gastrointestinal blood loss Paroxysmal atrial fibrillation Intermittent lightheadedness Thyroid nodule Type 2 diabetes mellitus without complication, with no history of insulin use Primary hyperparathyroidism Dyslipidemia (high LDL; low HDL) HTN (hypertension) Osteopenia Vitamin D deficiency Surgical History Hx of esophagogastroduodenoscopy Hx of cataract surgery Hx of total thyroidectomy Hx of cholecystectomy Hx of hysterectomy Hx of colonoscopy Tests of Speech & Lang Adults: BNT Clinical Impression: Observations: Patient completed the [place] Naming Test (BNT) Standard Form. She was presented with simple line drawings, which she was instructed to name in a confrontation naming task. Patient correctly named 44 out of 60 images independently. Patient was able to name common nouns in most trials, but exhibited difficulty naming less salient items, such as dominoes, tongs, tripod, unicorn, pelican, and latch. Patient groped for words (i.e. ?I know what it is??) and produced semantic paraphasias (i.e. naming pelican as ?penguin?), mislabeling items with other words that were semantically related. Patient was able to identify these errors and promptly corrected herself (i.e. ?wait no? not penguin?). Patient exhibited a short time delay when naming in approximately 10% of trials. Patient demonstrated knowledge of the presented items, by gesturing to convey meaning (i.e. gestured motion of throwing a boomerang), describing the item (i.e. ?it is over in [place]? for target word ?pyramid?), or making associations (i.e. ?my granddaughter loves this? for target word ?unicorn?). Patient presents with a mild anomic aphasia, with difficulty retrieving words in conversation and on confrontational naming. Patient is often able to retrieve words when provided with semantic, phonemic, orthographic, or forced choice cues Tests of Cognition: RBANS Clinical Impression: Observations: Patient?s cognitive linguistic skills were evaluated using the RBANS: The Repeatable Battery for the Assessment of Neuropsychological Status (RBANS-Updated Form B). The RBANS assesses aspects of cognitive memory, language, and attention skills. The RBANS is considered a screening battery for cognitive function used with adolescents and adults, ages 12 to 89 years. Composite domains assessed in this evaluation are: Immediate Memory, Visuospatial/Constructional, Language, Attention, and Delayed Memory. Assessed domains and their scores are summarized below: IMMEDIATE MEMORY: These subtests assess an individual?s ability to remember a small amount of information immediately after it is presented. Patient was presented with a list of 10 spoken words and was instructed to repeat back as many words as she could remember from the list (List Learning). Patient consistently recalled up to 2-4 items at a time. After listening to a spoken paragraph, patient was instructed to re-tell the story with as much detail as she could remember (Story memory). Patient seemed to have an easier time remembering information from a narrative. She was able to repeat back dates, locations, and several other details. List Learning Total Score: 12 Scaled Score: 2 Percentile: 0.4 Interpretation: Extremely Low Story Memory Total Score: 10 Scaled Score: 5 Percentile: 5 Interpretation: Borderline Immediate Memory Index score: 61 Percentile: 0.5 Interpretation: Extremely Low VISUOSPATIAL/CONSTRUCTIONAL: These subtests assess an individual?s visuospatial skills and perception of spatial relationships. Patient was able to copy a figure drawing with exactness. She was also instructed to match lines based on orientation. Patient was able to match angles based on orientation in about 50% of trials. No significant concerns were identified in the area of visuospatial skills. Figure Copy Total Score: 20 Scaled Score: 14 Percentile: 91 Interpretation: Superior Line Orientation Total Score: 10 Percentile Group: 3-9 Interpretation: Borderline Visuospatial/Constructional Index score: 96 Percentile Rank: 39 Interpretation: Average LANGUAGE: These subtests assess an individual?s word retrieval skills. Patient correctly named 10 out of 10 images during a confrontational naming task (Picture Naming) and was able to list multiple items in a category within a time constraint (Semantic Fluency). Patient?s anomia is more apparent in conversation and when naming uncommon items or abstract concepts. Picture Naming Total Score: 10 Percentile Group: 51-75 Interpretation: Average Semantic Fluency Total Score: 14 Scaled Score: 6 Percentile Rank: 9 Interpretation: Low Average Language Index score: 90 Percentile Rank: 25 Interpretation: Average ATTENTION: These subtests assess an individual?s capacity to remember and manipulate both visually and orally presented information in short-term memory storage. Patient was first instructed to repeat back number series that were between 2-9 digits long (Digit Span). She recalled up to 6 numbers at a time. Patient was also instructed to code markings with numbers (Coding), and completed this task slowly, though she made minimal errors. Digit Span Total Score: 10 Scaled Score: 10 Percentile Rank: 50 Interpretation: Average Coding Total Score: 14 Scaled Score: 2 Percentile: 0.4 Interpretation: Extremely Low Attention Index score: 75 Percentile Rank: 5 Interpretation: Borderline DELAYED MEMORY: These subtests assess an individual?s retrieval of information from long-term memory. After approximately 15-20 minutes, patient was able to recall several items from a word list (List Recall), details from a narrative (Story Recall), and charlene a figure from memory which included most features presented to her at the beginning of the testing session (Figure Recall). List Recall Total Score: 6 Percentile Group: 51-75 Interpretation: Average List Recognition Total Score: 20 Percentile Group: 51-75 Interpretation: Average Story Recall Total Score: 6 Scaled Score: 7 Percentile Rank: 16 Interpretation: Low Average Figure Recall Total Score: 11 Scaled Score: 9 Percentile Rank: 37 Interpretation: Average Delayed Memory Index Score: 101 Percentile Rank: 53 Interpretation: Average SUM OF INDEX SCORES: 423 TOTAL SCALE SCORE: 80 PERCENTILE RANK: 9% Interpretation: Low Average Khushbu Dan (1998). Repeatable Battery for the Assessment of Neuropsychological Status [Manual]. SHAYNE Powell: Moe. Impressions and Recommendations Summary: Patient presents with a mild cognitive linguistic impairment, with difficulties in the areas of immediate recall and word retrieval. Patient demonstrates relative strengths in her attention, visuospatial skills, and utilization of communication strategies (i.e. describing words for her sister on the phone when unable to recall a word). Patient is recommended a trial of individualized cognitive therapy 1x weekly x 8-10 sessions targeting the following goals: Impact on Daily Function/Activity Limitations: Daily Activities: Mild Interpersonal Interactions: Mild Education: Employment: Community: Mild Prognosis for Improvement: Excellent Recommendation for Speech Therapy: Outpatient Speech Therapy Frequency/Duration: 1x weekly x 8-10 weeks Date Range for Service Requested: Time to Reassess: PRN Skilled Nursing Goals: 1.) Patient will utilize a variety of word-finding strategies at the conversational level with minimal assistance in >80% opportunities presented to her. 2.) Patient will utilize compensatory strategies to assist short-term memory in 80% of opportunities independently. 3.) Patient will complete the [place] Diagnostic Aphasia Examination (BDAE) to further assess her receptive and expressive language skills. Short Term Goals: Goal # : 1.1. Patient will list 5+ members per spoken category in 80% of trials when provided with minimal verbal prompts. Goal Status: New Goal Goal# : 1.2. Patient will name abstract words and phrases from description at 80% accuracy given minimal verbal prompts. Goal Status: New Goal Goal # : 1.3. Patient will produce a minimum of 4 different features, when presented with a word using semantic feature analysis (SFA), given minimal verbal prompts, with 80% accuracy. Goal Status: New Goal Goal # : 2.1. Patient will use internal memory strategies (i.e. rehearsal, association, visualization) to recall 5-6 items at 80% accuracy when provided with minimal verbal cues. Goal Status: New Goal Patient Education: Completed: Yes Patient/Caregiver Education: Described Results of Evaluation Patient expressed understanding of evaluation Comments/Barriers to Learning: It was a pleasure meeting and working with Katelynn. Please do not hesitate to contact the [facility] if we can be of further assistance in her care. Belt Loop Cutter Clinican/Clinical Fellow: No Supervisory Statement: N/A Speech Language Pathologist: Nakia Jensen M.A., CCC-RIB [employer]
== END 2025-01-22 14:05 | disposition home or self-care (01) ==
LOC: HO.SH 09:35
PROVIDERS: PCP Internal Medicine; Visit Provider Psychiatry & Neurology Neurology
DX: R47.89 Other speech disturbances (principal); R41.3 Other amnesia
CPT/HCPCS: 96125

== ENCOUNTER 2024-11-14 10:10 | Outpatient (REF) | payer MEDICARE, SELFPAY ==
--- OUTSIDE RECORDS SUMMARY | 2024-11-14 10:57 | XMS_ITS | Patient Health Record ---
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 Name Role Phone Cindy TIWARI, Sasha Bales Primary Care Provider Un available Jo Ann Vincent Unavailable [phone] Allergies No Known Allergies Results Component Value Reference Range Notes HEMOGLOBIN A1C (GLYCOHEMOGLO BIN) Reviewed date:10/14/2024 08:42:16 AM Interpretation: Performing Lab: Notes/Report: HEMOGLOBIN A1C % (HH) 6.0 Reason For Referral No Information Medications Medication SIG (Take, Route, Frequency, Duration) Notes Start Date End Date Status Olmesartan Medoxomil Active Extra Depth Orthopedic Shoes (1 Pair) with Customized Heat Molded Multidensity Innersoles (3 Pair) Dx: NIDDM/Polyneuropathy (E11.42), Hammertoe Foot Deformity (M20.41,M20.42), Preulcerative Skin Lesion(s) (L85.1); Duration: 365 days 10/14/2024 Active Rosuvastatin Calcium 5 MG 1 tablet Orally Once a day Active Ferrous Sulfate 325 (65 Fe) MG 1 tablet Orally Three times a Week Active Simvastatin 20 MG 1 tablet in the even ing Orally Once a day Active Metoprolol Succinate 50 MG 1 capsule Ora lly Once a day Active metFORMIN HCl 750 MG 1 tablet with a syd l Orally Once a day Active Immunizations Vaccine Route Administration Date Status Comme nts Influenza Unknown 01/23/2024 Administered Social History Tobacco Use: Social History Observation Description Date Details (start date - stop date) Never Smoker NA - NA Tobacco use other than smoking: Question Answer Notes Are you an other tobacco user? No Tobacco Control (Standard) Question Answer Notes Tobacco use: Nonsmoker AUDIT-C (Standard) Question Answer Notes Did you have a drink containing alcohol in the p ast year? No Points 0 Interpretation Negative Problems Problem Type SNOMED Code ICD Code Onset Dates Problem Status W/U Status Risk Notes Problem Acquired hammer toe of right foot (0674028074235508 ) Other hammer toe(s) (acquired), right foot (M20.41) Active confirmed Problem Acquired hammer toe of left foot (6413302485700861 ) Other hammer toe(s) (acquired), left foot (M20.42) Active confirmed Problem Polyneuropathy due to diabetes mellitus type I (341062160) Type 1 diabetes mellitus with diabetic polyneuropathy (E10.42) Active confirmed Problem Polyneuropathy due to type 2 diabetes mellitus (856257243) Type 2 diabetes mellitus with diabetic polyneuropathy (E11.42) Active confirmed Vital Signs Blood pressure diastolic 65 mm Hg 10/14/2024 Height 5 ft 2inch in 10/14/2024 Blood pressure systolic 128 mm Hg 10/14/2024 Weight 159 lbs 10/14/2024 BMI 29.08 kg/m2 10/14/2024 Procedures Procedure Date Ordered Date Performed Result Body Sit e 39254-MDCAGFH NAIL, 6 OR MORE 10/14/2024 N/A 38613-SIZF SKIN LESIONS, 2 TO 4 10/14/2024 N/A Encounters Encounter Location Date Provider Diagnosis [facility] [address] [place] [address] 10/14/2024 Jo Ann Vincent Other hammer toe(s) (acquired), right foot M20.41 ; Other hammer toe(s) (acquired), left foot M20.42 ; Type 2 diabetes mellitus with diabetic polyneuropathy E11.42 and Tinea unguium B35.1 Assessments Encounter Date Diagnosis (ICD Code) Assessment Notes Treatment Notes Treatment Clinical Notes Section Notes 10/14/2024 Other hammer toe(s) (acquired), right foot (ICD-10 - M20.41) Patient Educated with: DIABETIC FOOT CARE INSTRUCTIONS. pdf (DIABETIC FOOT CARE INSTRUCTIONS. pdf) 10/14/2024 Other hammer toe(s) (acquired), left foot (ICD-10 - M20.42) 10/14/2024 Type 2 diabetes mellitus with diabetic polyneuropathy (ICD-10 - E11.42) 10/14/2024 Tinea unguium (ICD-10 - B35.1) Plan Of Treatment Pending Test Test Name Order Date 92031-AUUCJRB NAIL, 6 OR MORE 10/14/2024 81909-DLAV SKIN LESIONS, 2 TO 4 10/15/19 25 Next Appt Details Provider Name:Jo Ann Flowers nadya, 01/20/2025 09:00:00 AM, [address] [place], [address], Insurance Providers Payer Name Payer Address Payer Phone Subscriber Number Group Number Insured Name Patient Relationship to Insured Coverage Start Date Coverage End Date [facility] 65 Medicare Preferred [address] [place] [address] [phone] [id number] Katelynn Cisneros Self - patient is the insured Medical (General) History Medical History History ICD Code Cataracts Diabetic Gall bladder High Blood Pressure thyroid Measles Mumps Chicken pox Transfusions Surgical History Surgery Date(Month/Year) Gall bladder removal 11/1975 hysterectomy 11/2003
[2024-11-14 13:40] LABS: Hemoglobin A1C 175.0025 umol/L; Total Hemoglobin (HGBA1C) 3245.1474 umol/L
[2024-11-14 13:47] LABS: Alanine Aminotransferase 18 U/L (0-31); Anion Gap 15 (12-20); Aspartate Amino Transferase 23 U/L (5-31); Blood Urea Nitrogen 13 mg/dL (9-16); Calcium 9.2 mg/dL (8.4-10.2); Carbon Dioxide 27 mmol/L (22-29); Chloride 102 mmol/L (96-108); Cholesterol 186 mg/dL (<200); Estimated Glomerular Filt Rate > 60; HDL Cholesterol 53 mg/dL (>40); Potassium 4.7 mmol/L (3.3-5.1); Sodium 139 mmol/L (135-145); Triglycerides 161 mg/dL (<150)
== END 2024-11-14 10:11 | disposition home or self-care (01) ==
LOC: HO.HMGCLDS 10:10
PROVIDERS: PCP Internal Medicine; Visit Provider Internal Medicine
DX: E11.65 Type 2 diabetes mellitus with hyperglycemia (principal); I10 Essential (primary) hypertension; M85.80 Other specified disorders of bone density and structure, unspecified site; E78.5 Hyperlipidemia, unspecified
CPT/HCPCS: 36415; 80048; 80061; 82306; 82550; 83036; 84450; 84460

== ENCOUNTER 2024-11-20 09:20 | Outpatient (AMB) | payer MEDICARE, SELFPAY ==
[2024-11-20 09:29] VITALS: BP 142/70; PULSE 60; O2SAT 97; BMI 29.3
--- NOTE | 2024-11-20 09:29 | A.OFFPC_ITS ---
Vital Signs 11/20/24 09:29 11/20/24 09:36 Height 5 ft 2 in Weight 160 lb BMI 29.3 BP 142/70 H 138/70 Blood Pressure Location Lt brachial Rt brachial Position Sitting Sitting Pulse 60 Pulse Source Pulse Oximeter Pulse Oximetry (%) 97 Oxygen Delivery Method Room Air Intake Visit Reasons: 4m follow up Allergies vaccine adjuvant system, AS01B lipo (From Shingrix (PF)) Allergy (Severe, Verified 11/20/24 09:55) Maldonado's Palsy varicella-zoster virus glycoprotein (From Shingrix (PF)) Allergy (Severe, Verified 11/20/24 09:55) Maldonado's Palsy valacyclovir Adverse Reaction (Intermediate, Verified 11/20/24 09:55) Hallucinations, forgetfulness and dizziness Medication List - Last Reconciled 11/20/24 by Sasha White MD blood pressure monitor (Blood Pressure Kit) As directed blood sugar diagnostic (Zipfituch Ultra Test strips) test blood sugars once daily blood-glucose meter (Zipfituch Ultra2 Meter) Check fasting blood sugar twice a day before meals cholecalciferol (vitamin D3) 50 mcg PO DAILY citalopram 10 mg PO DAILY ferrous sulfate 325 mg PO DAILY lancets (SocialBrowseTouch Delica Lancets) test blood sugar once daily metformin ER 750 mg PO BID 3 months metoprolol succinate ER 50 mg PO DAILY olmesartan 5 mg PO DAILY rosuvastatin 5 mg PO Q2D 3 months Tobacco use date assessed: 07/17/24 Fall risk assessment: No Falls in past year Last assessed Fall Risk: 11/20/24 Dental Screening Dental Screen Date: 07/17/24 HPI 4m follow up HPI Details - The patient is a 79-year-old female pr esenting for a follow-up on her chronic conditions, including hyperlipidemia and type 2 diabetes mellitus. - Hyperlipidemia: The patient was initia lly prescribed Repatha by her spine surgeon but discontinued due to discomfort with self-injection. She is currently on rosuvastatin, which she resumed on her own after experiencing muscle pain with previous statin use. Her LDL cholesterol has decreased from 140 to 101 mg/dL. - Type 2 Diabetes Mellitus: The patient' s A1c has improved from 7.4% to 7.1%, with an average glucose reduction from 166 to 157 mg/dL. She is currently on metformin 750 mg twice daily. - Iron Deficiency Anemia: The patient ex perienced significant fatigue and was hospitalized due to severe anemia. She is currently taking iron supplements daily, and her iron levels have normalized. - Mild Cognitive Impairment: The patient reports occasional word-finding difficulties and has seen a neurologist for evaluation. She is scheduled for a follow-up in March. - Hypertension: The patient is on metopr olol and olmesartan for blood pressure management, with no reported issues. - Osteopenia: A bone density scan showed mild bone thinning in the thigh and left hip. The patient is advised to have a repeat scan next year. - Hemorrhoids: The patient had a colonos copy last year that revealed hemorrhoids and polyps, which were removed. A repeat colonoscopy is planned for 2026. - Anxiety Disorder: The patient is on ci talopram 10 mg daily, which she reports is effective in controlling her anxiety attacks. 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) Memory change Word finding difficulty Anemia due to gastrointestinal blood loss Paroxysmal atrial fibrillation Intermittent lightheadedness Thyroid nodule Type 2 diabetes mellitus without complication, with no history of insulin use Primary hyperparathyroidism Dyslipidemia (high LDL; low HDL) HTN (hypertension) Osteopenia Vitamin D deficiency Surgical History Hx of esophagogastroduodenoscopy Hx of cataract surgery Hx of total thyroidectomy Hx of cholecystectomy Hx of hysterectomy Hx of colonoscopy Family History Father Hypertension Diabetes mellitus Heart problem Congestive heart failure Carotid artery narrowing Mother Hypertension Diabetes mellitus Osteoporosis Colon polyps Social History Housing: House Alcohol intake: current Alcohol intake frequency: does not drink Patient Tobacco Use Status: Former Tobacco user Years Smoked: 50 +/- e-Cigarette/Vaping Use: Never Used service: No Current occupational status: retired Cognitive needs: No Hearing needs: No Vision needs: Yes Questionnaire PHQ-9 Over the last 2 weeks, how often have you been bothered by any of the following problems? Depression Screening Interpretation: Negative Depression Screening Done: Yes Source: Developed by Drs. Buck Caballero, Myra Littlejohn, Aron Brumfield and colleagues, with an educational farzad from [employer]. Thrive Questionnaire Date Thrive assessed: 11/20/24 I am a: Patient What is your living situation today?: I have a steady place to live Within the past 12 months, did the food you bought not last and you didn't have the money to get more?: Never true Within the past 12 months, did you worry whether your food would run out before you got money to buy more?: Never true Do you have trouble paying for medicines?: No Do you have trouble getting transportation to medical appointments?: No Do you have trouble paying your heating and electricity bill?: No Do you have trouble taking care of your child, family member or friend?: No Do you have trouble with day-to-day activities such as bathing, preparing meals, shopping, managing finances, etc.?: No Are you currently unemployed and looking for a job?: No Are you interested in more education?: No Please select the resources that you would like help with: None Currently or been in a relationship where the following occur: I choose not to answer THRIVE Score: 0 DAVID-7 AMB Questionnaire DAVID-7 Date DAVID - 7 assessed: 07/17/24 Source: Developed by Drs. Buck Caballero, Myra Littlejohn, Aron Brumfield and colleagues, with an educational farzad from [employer]. Review of Systems Const Denies difficulty sleeping, Denies fatigue, Denies fever(s) and Denies weakness Eyes Details: [facility] , has appt ENT Reports no additional complaints Card Denies chest pain, Denies chest pain with activity, Denies syncope, Denies rapid heart rate, Denies edema and Denies palpitations Resp Denies cough GI Denies abdominal pain, Denies melena, Denies hematochezia, Denies change in bowel habits, Denies change in stool character and Denies heartburn Reports no additional complaints Musc Details: sees Jo [facility] Hall in [place] , sees q 3 months Denies abnormal gait, Denies muscle cramps, Denies muscle weakness, Denies numbness, Denies radiating pain into limb and Denies tingling Skin/Breast Denies breast pain, Denies breast mass and Denies rash Neuro Details: Still has some word-finding difficulties after Maldonado's palsy Denies abnormal gait, Denies syncope, Denies numbness, Denies tingling and Denies weakness Psych Reports no additional complaints Endo Denies fatigue and Denies palpitations Dong/Lymph Reports no additional complaints Aller/Immun Reports no additional complaints Physical exam (Primary Care) Vital Signs: Last Vital Signs Pulse 60 11/20/24 09:29 BP 138/70 11/20/24 09:36 Pulse Ox 97 11/20/24 09:29 Oxygen Delivery Method Room Air 11/20/24 09:29 BMI result Body Mass Index 29.3 Tobacco/Smoking Status: Tobacco use Status Tobacco use date assessed 07/17/24 11/20/24 09:30 Patient Tobacco Use Status Former Tobacco user 11/20/24 09:30 e-Cigarette/Vaping Use Never Used 11/20/24 09:30 Depression Screening Interpretation: Negative Thrive Assessment: Date of Thrive Assessment Date Thrive assessed 11/20/24 11/20/24 09:30 Currently or been in a relationship where the following occur: I choose not to answer Const Other: Alert elderly female, no acute cardiorespiratory distress, ambulatory with normal gait HENMT Face and sinus: Yes face symmetric Mouth: Normal oral and palatal mucosa present and moist mucous membranes Eyes General: appearance normal, both eyes and all related structures Neck Other: Supple, no lymphadenopathy, full range of motion Resp Effort & Inspection: normal respiratory effort and able to speak in complete sentences Auscultation: clear to auscultation bilaterally Cardio Other: S1-S2 present regular rate and rhythm GI Other: Normal bowel sounds, soft, nontender, no mass palpated General: Yes no CVA tenderness Back/Spine/Pelvis Back: no CVA tenderness and No back tenderness Neuro Other: No speech abnormality noted on today's visit General: gait normal, tone normal, moves all extremities, Normal light touch and pain sensation, no focal motor deficits and CN's II-XI intact bilaterally Extrem Other: Some plantar callus noted, some thickening in toenails in both feet, intact sensation in both General: Yes full ROM, Yes no joint enlargement, Yes no pedal edema, Yes no calf tenderness and Yes normal gait Psych Appearance: grossly normal Mental Status: mental status grossly normal Speech and movement: Normal speech and movement present Affect: normal affect Attitude: cooperative Thought process: Normal thought process present Results Reviewed Results Reviewed: Name: Katelynn Cisneros Age/Sex: 79/F : 1945 Unit#: [id number] Attend Dr: Sasha White MD Re07/15/24 Status: DEP REF Location: [facility] Disch: SPEC : [id number] JOE: 07/15/24 STATUS: COMP REQ : [id number] RECD: 07/15/[address]: Sasha White MD COMP: 07/15/24 ENTERED: 07/15/24 [facility] DR: ORDERED: CBC Auto Diff Test Result Flag Reference WBC 7.1 4.8-10.8 X10*3/uL RBC 4.37 4.20-5.50 X10*6/uL HGB 12.6 12.0-16.0 g/dl HCT 37.9 37.0-47.0 % MCV 86.7 80.0-98.0 fL MCH 28.8 27.0-33.0 pg MCHC 33.2 31.0-35.0 g/dl RDW 14.7 11.0-16.0 % PLT 371 160-400 X10*3/uL MPV 10.2 9.4-12.3 fL Neut Pct Auto 63.9 45-73 % ImGran Pct Auto 0.6 H 0.0-0.4 % Lymp Pct Auto 23.0 20-40 % Perkins Pct Auto 8.2 2-11 % Eos Pct Auto 3.2 0-4 % Baso Pct Auto 1.1 0-2 % NRBC Pct Auto 0.0 0.0-0.2 /100WBC ANC Neut Abs # 4.5 2.0-8.3 x10*3/uL ImGran Abs Auto 0.04 H 0.00-0.03 X10*3/uL Lymph Abs Auto 1.6 1.2-4.9 X10*3/uL Perkins Abs Auto 0.6 0.1-1.2 X10*3/uL Eos Abs Auto 0.2 0.0-0.4 X10*3/uL Baso Abs Auto 0.1 0.0-0.2 X10*3/uL NRBC Abs Auto 0.000 0.0-0.012 X10*3/uL Name: Katelynn Cisneros Age/Sex: 79/F : 1945 Unit#: [id number] Attend Dr: Sasha White MD Re11/14/24 Status: DEP REF Location: [facility] Disch: SPEC : [id number] JOE: 11/14/24 STATUS: COMP REQ : [id number] RECD: 11/14/24-[address]: Sasha White MD COMP: 11/14/24 ENTERED: 11/14/24 [facility] DR: ORDERED: Met Prof Fast, AST, ALT, CK Total, Lipid Panel, Vitamin D 25-OH Test Result Flag Reference Sodium 139 135-145 mmol/L Potassium 4.7 3.3-5.1 mmol/L CL 102 96-108 mmol/L CO2 27 22-29 mmol/L Gap 15 12-20 BUN 13 9-16 mg/dL Creat 0.84 0.5-1.4 mg/dL eGFR > 60 Chronic Kidney Disease: Estimated GFR < 60 mL/min/1.73m2 Severe Kidney Disease: Estimated GFR < 15 mL/min/1.73m2 FBS 148 H 60-99 mg/dL A fasting glucose of 126 mg/dl or greater on more than one occasion is considered diagnostic of diabetes. CA 9.2 8.4-10.2 mg/dL AST (GOT) 23 5-31 U/L ALT (GPT) 18 0-31 U/L CK Total 50 26-140 U/L Triglyceride 161 H <150 mg/dL Desirable Triglyceride: less than 150 mg/dL Borderline High Triglyceride 150-199 mg/dL High Triglyceride: 200-499 mg/dL Very High Triglyceride: greater than or equal to 5OO mg/dL Cholesterol 186 <200 mg/dL Desirable Cholesterol: less than 200 mg/dL Borderline High Cholesterol: 200-239 mg/dL High Cholesterol: greater than 239 mg/dL LDL Calculated 101 H <100 mg/dL Desirable LDL: less than 100 mg/dL Near Optimal/Above Optimal LDL: 110-129 mg/dL Borderline High LDL: 130-159 mg/dL High LDL: 160-189 mg/dL Very High LDL: greater than or equal to 190 mg/dL HDL 53 >40 mg/dL Desirable HDL: greater than 40 mg/dL Note: This HDL assay may give artificially low results in patients with liver disease. Vitamin D 25-OH 49.3 >30 ng/mL Health Based Reference Values* < 20 ng/mL Deficient 20-30 ng/mL Insufficient > 30 ng/mL Sufficient Laboratory Tests 07/15/24 11/14/24 09:37 10:15 Estimat Average Glucose 157 Hemoglobin A1c % 7.1 H Urine Creatinine 52.62 Urine Microalbumin 10.0 Microalb/Creat Ratio 19.0 Coding Level of Care Code Est Pt Prev Care >65y(26772) Diagnoses HTN (hypertension), benign I10 Dyslipidemia (high LDL; low HDL) E78.5 Type 2 diabetes mellitus without complication, with no history of insulin use E11.9 Paroxysmal atrial fibrillation I48.0 History of anemia Z86.2 Assessment & Plan Assessment & Plan (1) HTN (hypertension), benign: Code(s): I10 - Essential (primary) hypertension Category: Medical (2) Dyslipidemia (high LDL; low HDL): Code(s): E78.5 - Hyperlipidemia, unspecified Category: Medical (3) Type 2 diabetes mellitus without complication, with no history of insulin use: Code(s): E11.9 - Type 2 diabetes mellitus without complications Category: Medical (4) Paroxysmal atrial fibrillation: Code(s): I48.0 - Paroxysmal atrial fibrillation Category: Medical (5) History of anemia: Code(s): Z86.2 - Personal history of diseases of the blood and blood-forming organs and certain disorders involving the immune mechanism Category: Medical Plan The patient will continue with rosuvastatin for hyperlipidemia management, given the improvement in her lipid profile. She is advised to inform her spine surgeon about discontinuing Repatha due to discomfort with self-injection. For type 2 diabetes mellitus, the patient will maintain her current regimen of metformin, as her glycemic control has shown improvement. For iron deficiency anemia, the patient will continue daily iron supplementation, as her levels have normalized. She is advised to monitor for any signs of recurrence. The patient will follow up with her neurologist in March for further evaluation of mild cognitive impairment. She is encouraged to continue her current medications for hypertension and anxiety disorder, as they are effective. Preventative measures include scheduling a repeat bone density scan next year and a colonoscopy in 2026. Fall precautions were discussed with patient due to mild osteopenia. She will continue with regular health maintenance screenings, including mammograms and cardiac evaluations, as previously scheduled. Patient was informed and verbally consented to the use of an ambient scribe for clinic note documentation during this visit. Orders: Orders Aspartate Amino Transferase 02/22/25 E11.9 - Type 2 diabetes mellitus without complications, E78.5 - Hyperlipidemia, unspecified, I10 - Essential (primary) hypertension, I48.0 - Paroxysmal atrial fibrillation, K55.20 - Angiodysplasia of colon without hemorrhage, Z86.2 - Personal history of diseases of the blood and blood-forming organs and certain disorders involving the immune mechanism Basic Metabolic Panel Fasting 02/22/25 E11.9 - Type 2 diabetes mellitus without complications, E78.5 - Hyperlipidemia, unspecified, I10 - Essential (primary) hypertension, I48.0 - Paroxysmal atrial fibrillation, K55.20 - Angiodysplasia of colon without hemorrhage, Z86.2 - Personal history of diseases of the blood and blood-forming organs and certain disorders involving the immune mechanism Vitamin D 25-OH Total 02/22/25 E11.9 - Type 2 diabetes mellitus without complications, E78.5 - Hyperlipidemia, unspecified, I10 - Essential (primary) hypertension, I48.0 - Paroxysmal atrial fibrillation, K55.20 - Angiodysplasia of colon without hemorrhage, Z86.2 - Personal history of diseases of the blood and blood-forming organs and certain disorders involving the immune mechanism IRON PROFILE 02/22/25 E11.9 - Type 2 diabetes mellitus without complications, E78.5 - Hyperlipidemia, unspecified, I10 - Essential (primary) hypertension, I48.0 - Paroxysmal atrial fibrillation, K55.20 - Angiodysplasia of colon without hemorrhage, Z86.2 - Personal history of diseases of the blood and blood-forming organs and certain disorders involving the immune mechanism TSH reflex Free T4 02/22/25 R41.3 - Other amnesia Hemoglobin and Hematocrit 02/22/25 E11.9 - Type 2 diabetes mellitus without complications, E78.5 - Hyperlipidemia, unspecified, I10 - Essential (primary) hypertension, I48.0 - Paroxysmal atrial fibrillation, K55.20 - Angiodysplasia of colon without hemorrhage, Z86.2 - Personal history of diseases of the blood and blood-forming organs and certain disorders involving the immune mechanism Lipid Panel 02/22/25 E11.9 - Type 2 diabetes mellitus without complications, E78.5 - Hyperlipidemia, unspecified, I10 - Essential (primary) hypertension, I48.0 - Paroxysmal atrial fibrillation, K55.20 - Angiodysplasia of colon without hemorrhage, Z86.2 - Personal history of diseases of the blood and blood-forming organs and certain disorders involving the immune mechanism Hemoglobin A1c 02/22/25 E11.9 - Type 2 diabetes mellitus without complications, E78.5 - Hyperlipidemia, unspecified, I10 - Essential (primary) hypertension, I48.0 - Paroxysmal atrial fibrillation, K55.20 - Angiodysplasia of colon without hemorrhage, Z86.2 - Personal history of diseases of the blood and blood-forming organs and certain disorders involving the immune mechanism Alanine Aminotransferase 02/22/25 E11.9 - Type 2 diabetes mellitus without complications, E78.5 - Hyperlipidemia, unspecified, I10 - Essential (primary) hypertension, I48.0 - Paroxysmal atrial fibrillation, K55.20 - Angiodysplasia of colon without hemorrhage, Z86.2 - Personal history of diseases of the blood and blood-forming organs and certain disorders involving the immune mechanism Medications: Refilled ferrous sulfate 325 mg PO DAILY 90 tabs 1RF
[2024-11-20 09:36] VITALS: BP 138/70
== END 2024-11-20 10:18 | disposition home or self-care (01) ==
LOC: HO.HMCC 09:21
PROVIDERS: PCP Internal Medicine; Visit Provider Internal Medicine
DX: Z00.00 Encounter for general adult medical examination without abnormal findings (principal); E11.9 Type 2 diabetes mellitus without complications; I10 Essential (primary) hypertension; E78.5 Hyperlipidemia, unspecified; Z86.2 Personal history of diseases of the blood and blood-forming organs and certain disorders involving the immune mechanism

== ENCOUNTER → 2024-11-20 09:20 | Outpatient (BNVA) | payer MEDICARE, SELFPAY | PROVIDERS: PCP Internal Medicine; Visit Provider Internal Medicine | DX: E11.9 Type 2 diabetes mellitus without complications (principal); E78.5 Hyperlipidemia, unspecified; D50.9 Iron deficiency anemia, unspecified; I10 Essential (primary) hypertension; M85.80 Other specified disorders of bone density and structure, unspecified site; K64.9 Unspecified hemorrhoids; F41.9 Anxiety disorder, unspecified; I48.0 Paroxysmal atrial fibrillation; Z86.2 Personal history of diseases of the blood and blood-forming organs and certain disorders involving the immune mechanism | CPT/HCPCS: 99397 ==

== ENCOUNTER 2025-02-10 10:36 | Outpatient (AMB) | payer MEDICARE, SELFPAY ==
--- NOTE | 2025-02-10 10:38 | MHC.OFFVIS ---
Vital Signs 02/10/25 10:40 Height 5 ft 2 in Weight 161 lb 13.109 oz BMI 29.6 BP 122/78 Blood Pressure Location Lt brachial Position Sitting Pulse 62 Pulse Source Monitor Intake Visit Reasons: 6 mnth f/up Parking Enforcement Manager Required: No Accompanied by: Self / Same As Patient Allergies vaccine adjuvant system, AS01B lipo (From Shingrix (PF)) Allergy (Severe, Verified 02/10/25 10:43) Maldonado's Palsy varicella-zoster virus glycoprotein (From Shingrix (PF)) Allergy (Severe, Verified 02/10/25 10:43) Maldonado's Palsy valacyclovir Adverse Reaction (Intermediate, Verified 02/10/25 10:43) Hallucinations, forgetfulness and dizziness Medication List - Last Reconciled 02/10/25 by Jovon Diallo MD blood pressure monitor (Blood Pressure Kit) As directed blood sugar diagnostic ([employer] Ultra Test strips) test blood sugars once daily blood-glucose meter ([employer] Ultra2 Meter) Check fasting blood sugar twice a day before meals cholecalciferol (vitamin D3) 50 mcg PO DAILY citalopram 10 mg PO DAILY ferrous sulfate 325 mg PO DAILY lancets ([employer] Delica Lancets) test blood sugar once daily metformin ER 750 mg PO BID 3 months metoprolol succinate ER 50 mg PO DAILY olmesartan 5 mg PO DAILY rosuvastatin 5 mg PO Q2D 3 months HPI Comments Details: Millie returns for follow-up. To recall, she was originally seen in consultation regarding shortness of breath. We had plan cardiac evaluation but she was admitted to [facility] with a very low hemoglobin of almost 3.3. Then she was transfused and underwent GI evaluation. Anemia issue itself seems stable at this time. She also underwent a coronary CTA and then that showed nonobstructive CAD. Overall, she states she feels good. No new concerns. No chest pains or any other symptoms. 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) Memory change Word finding difficulty Anemia due to gastrointestinal blood loss Paroxysmal atrial fibrillation Intermittent lightheadedness Thyroid nodule Type 2 diabetes mellitus without complication, with no history of insulin use Primary hyperparathyroidism Dyslipidemia (high LDL; low HDL) HTN (hypertension) Osteopenia Vitamin D deficiency Surgical History Hx of esophagogastroduodenoscopy Hx of cataract surgery Hx of total thyroidectomy Hx of cholecystectomy Hx of hysterectomy Hx of colonoscopy Family History Father Hypertension Diabetes mellitus Heart problem Congestive heart failure Carotid artery narrowing Mother Hypertension Diabetes mellitus Osteoporosis Colon polyps Social History Housing: House Alcohol intake: current Alcohol intake frequency: does not drink Patient Tobacco Use Status: Former Tobacco user Years Smoked: 50 +/- e-Cigarette/Vaping Use: Never Used service: No Current occupational status: retired Cognitive needs: No Hearing needs: No Vision needs: Yes Review of Systems Const Denies daytime sleepiness, Denies difficulty sleeping, Denies snoring, Denies stops breathing during sleep and Denies weakness Card Denies chest pain, Denies rapid heart rate, Denies irregular heart rhythm, Denies claudication, Denies leg edema, Denies lightheadedness, Denies palpitations, Denies dyspnea, Denies dyspnea on exertion, Denies orthopnea, Denies paroxysmal nocturnal dyspnea and Denies slow heart rate Resp Denies cough, Denies dyspnea, Denies dyspnea on exertion and Denies snoring GI Reports no additional complaints, Denies hematochezia, Denies change in stool character and Denies dyspepsia Musc Denies abnormal gait, Denies muscle weakness and Denies numbness Neuro Denies abnormal gait, Denies numbness and Denies weakness Endo Denies palpitations Physical Exam Vital Signs: Last Vital Signs Pulse 62 02/10/25 10:40 BP 122/78 02/10/25 10:40 BMI result Body Mass Index 29.6 Const General: comfortable and no acute distress Orientation/consciousness: patient oriented x3 HEENT Other: Unremarkable Head: Yes normal to inspection Neck Neck: Yes normal visual inspection Chest Chest palpation & inspection: normal inspection of the chest Resp Auscultation: clear to auscultation bilaterally Cardio Palpation: normal PMI Heart sounds: S1 normal heart sound present, S2 normal heart sound present, no gallops, no murmurs and no rubs GI Palpation (GI): Soft to palpation Back/Spine/Pelvis Other: unremarkable Skin General skin exam: no rashes or lesions noted Neuro General: patient oriented x3 Extrem General: Yes normal to inspection Psych Mental Status: mental status grossly normal Office Procedures EKG Details: EKG with sinus rhythm at 62/Min; nonspecific ST-[place] changes; [place] [address]-Ocayrhjsfkxvrtxzt, Complete Assessment & Plan Assessment & Plan (1) Atherosclerotic cardiovascular disease: Code(s): I25.10 - Atherosclerotic heart disease of [place] coronary artery without angina pectoris Category: Medical Plan: Coronary CT 03/2022 shows only mild to moderate CAD. Nothing hemodynamically significant. No angina. Myocardial perfusion imaging study from 01/2024 shows normal perfusion. In the exercise portion, 4.6 METS and hypertensive blood pressure response. Clinically, no angina. Was taking statins and had some side effects and then tried Repatha, but does not want to try any injections anymore. Went back on statins. (2) Paroxysmal atrial fibrillation: Code(s): I48.0 - Paroxysmal atrial fibrillation Category: Medical Plan: Isolated occurrence when she was severely anemic. No definitive recurrences. Hence no clear indication for atrial fibrillation especially with GI bleed/severe anemia history. (3) Hemorrhage of gastrointestinal tract: Code(s): K92.2 - Gastrointestinal hemorrhage, unspecified Category: Medical Plan: Thought to be from bleeding AVMs. Seems they were cauterized by GI at [facility]. Plan Discussion Notes I discussed with the patient that her cardiovascular health is stable. We agreed to continue her current management plan without changes, and she will contact me if any issues arise. Patient was informed and verbally consented to the use of an ambient scribe for clinic note documentation during this visit. Patient Instructions: - Monitor for any new symptoms and report them immediately. - Maintain regular follow-up appointments for cardiovascular health monitoring. Coding Level of Care Code Est Pt Level 4 (31533) Complex EM visit Add On G2211 Diagnoses Atherosclerotic cardiovascular disease I25.10 Paroxysmal atrial fibrillation I48.0 Hemorrhage of gastrointestinal tract K92.2 CPT Codes EKG - CPT: 34786-Vsxuvgtgnmcbfptff, Complete ([id number])
[2025-02-10 10:40] VITALS: BP 122/78; PULSE 62; BMI 29.6
--- OUTSIDE RECORDS SUMMARY | 2025-02-10 12:43 | XMS_ITS | Patient Health Record ---
[facility] Address [address] [place] [address] Care Team Providers Care Global Transportation Manager Name Role Phone Cindy TIWARI, Sasha Bales Primary Care Provider Un available Jo Ann Vincent Unavailable [phone] Allergies No Known Allergies Results Component Value Reference Range Notes HEMOGLOBIN A1C (GLYCOHEMOGLO BIN) Reviewed date:10/14/2024 08:42:16 AM Interpretation: Performing Lab: Notes/Report: HEMOGLOBIN A1C % (HH) 6.0 HEMOGLOBIN A1C (GLYCOHEMOGLO BIN) Reviewed date:01/20/2025 09:05:03 AM Interpretation: Performing Lab: Notes/Report: HEMOGLOBIN A1C % (HH) 6.8 Reason For Referral No Information Medications Medication SIG (Take, Route, Frequency, Duration) Notes Start Date End Date Status Ferrous Sulfate 325 (65 Fe) MG 1 tablet Orally Three times a Week Active Rosuvastatin Calcium 5 MG 1 tablet Orally Once a day Active Metoprolol Succinate 50 MG 1 capsule Ora lly Once a day Active Simvastatin 20 MG 1 tablet in the even ing Orally Once a day Active Olmesartan Medoxomil Active metFORMIN HCl 750 MG 1 tablet with a syd l Orally Once a day Active Extra Depth Orthopedic Shoes (1 Pair) with Customized Heat Molded Multidensity Innersoles (3 Pair) Dx: NIDDM/Polyneuropathy (E11.42), Hammertoe Foot Deformity (M20.41,M20.42), Preulcerative Skin Lesion(s) (L85.1); Duration: 365 days 10/14/2024 Active Immunizations Vaccine Route Administration Date Status Comme nts Influenza Unknown 01/23/2024 Administered Influenza Unknown 12/23/2024 Administered Social History Tobacco Use: Social History Observation Description Date Details (start date - stop date) Never Smoker NA - NA Tobacco use other than smoking: Question Answer Notes Are you an other tobacco user? No Tobacco Control (Standard) Question Answer Notes Tobacco use: Nonsmoker Additional Findings: Tobacco non-user Current no nsmoker AUDIT-C (Standard) Question Answer Notes Did you have a drink containing alcohol in the p ast year? No Points 0 Interpretation Negative Problems Problem Type SNOMED Code ICD Code Onset Dates Problem Status W/U Status Risk Notes Problem Acquired hammer toe of right foot (6003172199974813 ) Other hammer toe(s) (acquired), right foot (M20.41) Active confirmed Problem Acquired hammer toe of left foot (1323441531135530 ) Other hammer toe(s) (acquired), left foot (M20.42) Active confirmed Problem Polyneuropathy due to diabetes mellitus type I (948268837) Type 1 diabetes mellitus with diabetic polyneuropathy (E10.42) Active confirmed Problem Polyneuropathy due to type 2 diabetes mellitus (124999972) Type 2 diabetes mellitus with diabetic polyneuropathy (E11.42) Active confirmed Vital Signs Blood pressure diastolic 65 mm Hg 01/20/2025 Height 5 ft 2inch in 01/20/2025 Blood pressure systolic 128 mm Hg 01/20/2025 Weight 159 lbs 01/20/2025 BMI 29.08 kg/m2 01/20/2025 Procedures Procedure Date Ordered Date Performed Result Body Sit e 79312-VYHUGVY NAIL, 6 OR MORE 10/14/2024 N/A 79217-EEEG SKIN LESIONS, 2 TO 4 10/14/2024 N/A 43134-KEGAOUY NAIL, 6 OR MORE 01/20/2025 N/A Encounters Encounter Location Date Provider Diagnosis [facility] [address] [address] 10/14/2024 Jo Ann Vincent Other hammer toe(s) (acquired), right foot M20.41 ; Other hammer toe(s) (acquired), left foot M20.42 ; Type 2 diabetes mellitus with diabetic polyneuropathy E11.42 and Tinea unguium B35.[address] [facility] [address] [address] 01/20/2025 Jo Ann Vincent Type 2 diabetes mellitus with diabetic polyneuropathy E11.42 and Tinea unguium B35.1 Assessments Encounter Date Diagnosis (ICD Code) Assessment Notes Treatment Notes Treatment Clinical Notes Section Notes 10/14/2024 Other hammer toe(s) (acquired), right foot (ICD-10 - M20.41) Patient Educated with: DIABETIC FOOT CARE INSTRUCTIONS. pdf (DIABETIC FOOT CARE INSTRUCTIONS. pdf) 10/14/2024 Other hammer toe(s) (acquired), left foot (ICD-10 - M20.42) 01/20/2025 Type 2 diabetes mellitus with diabetic polyneuropathy (ICD-10 - E11.42) 01/20/2025 Tinea unguium (ICD-10 - B35.1) 10/14/2024 Type 2 diabetes mellitus with diabetic polyneuropathy (ICD-10 - E11.42) 10/14/2024 Tinea unguium (ICD-10 - B35.1) Plan Of Treatment Pending Test Test Name Order Date 15657-BCPUIDM NAIL, 6 OR MORE 10/14/2024 62513-ZFUPVJL NAIL, 6 OR MORE 01/20/2025 45034-BVZO SKIN LESIONS, 2 TO 4 10/15/19 25 Next Appt Details Provider Name:Jo Ann covington, 04/28/2025 02:00:00 PM, [address] [place], [address], Insurance Providers Payer Name Payer Address Payer Phone Subscriber Number Group Number Insured Name Patient Relationship to Insured Coverage Start Date Coverage End Date [facility] 65 Medicare Preferred [address] [place] [address] [id number] Katelynn Cisneros Self - patient is the insured Medical (General) History Medical History History ICD Code Cataracts Diabetic Gall bladder High Blood Pressure thyroid Measles Mumps Chicken pox Transfusions Surgical History Surgery Date(Month/Year) Gall bladder removal 11/1975 hysterectomy 11/2003
== END 2025-02-10 11:01 | disposition home or self-care (01) ==
LOC: HO.HCS 10:37
PROVIDERS: PCP Internal Medicine; Visit Provider Internal Medicine
DX: I25.10 Atherosclerotic heart disease of native coronary artery without angina pectoris (principal); I48.0 Paroxysmal atrial fibrillation; K92.2 Gastrointestinal hemorrhage, unspecified
CPT/HCPCS: 93010; 99214; G2211

== ENCOUNTER → 2025-02-10 10:36 | Outpatient (BNVA) | payer MEDICARE, SELFPAY | PROVIDERS: PCP Internal Medicine; Visit Provider Internal Medicine | DX: I25.10 Atherosclerotic heart disease of native coronary artery without angina pectoris (principal); I48.0 Paroxysmal atrial fibrillation; K92.2 Gastrointestinal hemorrhage, unspecified | CPT/HCPCS: 93005; 99212 ==

== ENCOUNTER 2025-02-12 09:52 | Outpatient (REF) | payer MEDICARE, SELFPAY ==
--- OUTSIDE RECORDS SUMMARY | 2025-02-12 11:51 | XMS_ITS | Patient Health Record ---
Author Organization [facility] Address [address] [facility] [place] [address] Care Team Providers Care Automotive Teacher Name Role Phone Cindy TIWARI, Sasha Bales Primary Care Provider Un available Jo Ann Vincent Unavailable [phone] Allergies No Known Allergies Results Component Value [...] Problem Acquired hammer toe of right foot (3900604518777283 ) Other hammer toe(s) (acquired), right foot (M20.41) Active confirmed Problem Acquired hammer toe of left foot (0921949727368965 ) Other hammer toe(s) (acquired), left foot (M20.42) Active confirmed Problem Polyneuropathy due to diabetes mellitus type I (922473166) Type 1 diabetes mellitus with diabetic polyneuropathy (E10.42) Active confirmed Problem Polyneuropathy due to type 2 diabetes mellitus (707391070) Type 2 diabetes mellitus with diabetic polyneuropathy (E11.42) Active confirmed Vital Signs Blood pressure diastolic 65 mm Hg 01/20/2025 Height 5 ft 2inch in 01/20/2025 Blood pressure systolic 128 mm Hg 01/20/2025 Weight 159 lbs 01/20/2025 BMI 29.08 kg/m2 01/20/2025 Procedures Procedure Date Ordered Date Performed Result Body Sit e 49149-HSUESPG NAIL, 6 OR MORE 10/14/2024 N/A 25289-XPBQ SKIN LESIONS, 2 TO 4 10/14/2024 N/A 04521-GFABPFF NAIL, 6 OR MORE 01/20/2025 N/A Encounters Encounter Location Date Provider Diagnosis [facility] [address] [address] 10/14/2024 Jo Ann Vincent Other hammer toe(s) (acquired), right foot M20.41 ; Other hammer toe(s) (acquired), left foot M20.42 ; Type 2 diabetes mellitus with diabetic polyneuropathy E11.42 and Tinea unguium B35.1 [facility] [address] [address] 01/20/2025 Jo Ann Vincent Type 2 diabetes [...] Treatment Pending Test Test Name Order Date 10966-KUNHNUI NAIL, 6 OR MORE 10/14/2024 64190-JCMAESK NAIL, 6 OR MORE 01/20/2025 07427-CWYZ SKIN LESIONS, 2 TO 4 10/15/19 25 Next Appt Details Provider Name:Jo Ann covington, 04/28/2025 02:00:00 PM, [address] [place], [address], Insurance Providers Payer Name Payer Address Payer Phone Subscriber Number Group Number Insured Name Patient Relationship to Insured Coverage Start Date Coverage End Date [facility] 65 Medicare Preferred [address] [place] [address] [id number] Katelynn Cisneros Self - patient is the insured Medical (General) History Medical History History ICD Code Cataracts Diabetic Gall bladder High Blood Pressure thyroid Measles Mumps Chicken pox Transfusions Surgical History Surgery Date(Month/Year) Gall bladder removal 11/1975 hysterectomy 11/2003
[2025-02-12 13:19] LABS: Hematocrit 40.3 % (37.0-47.0); Hemoglobin 13.2 g/dl (12.0-16.0)
[2025-02-12 14:14] LABS: Alanine Aminotransferase 24 U/L (0-31); Anion Gap 11 (12-20); Aspartate Amino Transferase 29 U/L (5-31); Blood Urea Nitrogen 7 mg/dL (9-16); Calcium 9.2 mg/dL (8.4-10.2); Carbon Dioxide 28 mmol/L (22-29); Chloride 102 mmol/L (96-108); Cholesterol 152 mg/dL (<200); Estimated Glomerular Filt Rate > 60; HDL Cholesterol 54 mg/dL (>40); Iron 102 mcg/dL (30-160); Percent Iron Saturation 33 % (15-50); Potassium 4.3 mmol/L (3.3-5.1); Sodium 137 mmol/L (135-145); Total Iron Binding Capacity 312 mcg/dL (228-428); Triglycerides 146 mg/dL (<150); Unsaturated Iron Binding 210 ug/dL
[2025-02-12 14:18] LABS: Folate 6.4 ng/mL (> or = 4.0); Vitamin B12 892 pg/mL (200-900)
[2025-02-12 15:54] LABS: Free T4 (Free Thyroxine) 1.04 ng/dL (0.71-1.85)
== END 2025-02-12 09:53 | disposition home or self-care (01) ==
LOC: HO.HMGCLDS 09:52
PROVIDERS: PCP Internal Medicine; Visit Provider Internal Medicine
DX: Z13.21 Encounter for screening for nutritional disorder (principal); I48.0 Paroxysmal atrial fibrillation; I10 Essential (primary) hypertension; E11.9 Type 2 diabetes mellitus without complications; E78.5 Hyperlipidemia, unspecified; K55.20 Angiodysplasia of colon without hemorrhage; Z86.2 Personal history of diseases of the blood and blood-forming organs and certain disorders involving the immune mechanism; R41.3 Other amnesia
CPT/HCPCS: 36415; 80048; 80061; 82306; 82607; 82746; 83036; 83540; 84439; 84443; 84450; 84460; 85014; 85018

== ENCOUNTER 2025-02-19 09:18 | Outpatient (AMB) | payer MEDICARE, SELFPAY ==
[2025-02-19 09:45] VITALS: BP 138/60; PULSE 66; RESP 16; TEMP 36.8; O2SAT 96; BMI 29.1
--- NOTE | 2025-02-19 09:45 | A.OFFPC_ITS ---
Vital Signs 02/19/25 09:45 Height 5 ft 2 in Weight 159 lb BMI 29.1 BP 138/60 Blood Pressure Location Lt brachial Position Sitting Respiration 16 Pulse 66 Pulse Source Pulse Oximeter Temp 98.3 F Temp Source Oral Pulse Oximetry (%) 96 Oxygen Delivery Method Room Air Intake Visit Reasons: 3m follow up Intake Note: Pt is here today for her 3mo. f/u Allergies vaccine adjuvant system, AS01B lipo (From Shingrix (PF)) Allergy (Severe, Verified 02/19/25 10:02) Maldonado's Palsy varicella-zoster virus glycoprotein (From Shingrix (PF)) Allergy (Severe, Verified 02/19/25 10:02) Maldonado's Palsy valacyclovir Adverse Reaction (Intermediate, Verified 02/19/25 10:02) Hallucinations, forgetfulness and dizziness Medication List - Last Reconciled 02/19/25 by Sasha White MD blood pressure monitor (Blood Pressure Kit) As directed blood sugar diagnostic (Modern GuildTouch Ultra Test strips) test blood sugars once daily blood-glucose meter (Shoppilotuch Ultra2 Meter) Check fasting blood sugar twice a day before meals cholecalciferol (vitamin D3) 50 mcg PO DAILY citalopram 10 mg PO DAILY ferrous sulfate 325 mg PO DAILY lancets (OneTouch Delica Lancets) test blood sugar once daily metformin ER 750 mg PO BID 3 months metoprolol succinate ER 50 mg PO DAILY olmesartan 5 mg PO DAILY rosuvastatin 5 mg PO Q2D 3 months Tobacco use date assessed: 02/19/25 Fall risk assessment: No Falls in past year Last assessed Fall Risk: 02/19/25 Dental Screening Dental Screen Date: 02/19/25 Did you have a dental visit in the last 12 months?: No Did you have a dental problem in the last 6 months where you did not have access to dental care?: No Was dental information given to patient?: Patient has dentist HPI 3m follow up HPI Details The patient is a 79-year-old female presenting for a follow-up visit She has diabetes mellitus,, recent labs from February 12 show an HbA1c of 7.5%, which is a slight increase from her previous value of 7.1%. The patient attributes the higher reading to consuming ice cream over the summer. Her curr ent medication regimen is metformin 750 mg twice a day. There is no evidence of kidney damage from her diabetes, and her eye doctor has confirmed no diabetic ocular involvement. Her cholesterol has shown significant improvement, with a notable decrease in total cholesterol, triglycerides, and LDL cholesterol. She takes rosuvastatin every other day at night, , with no side effects noted Other labs show normal thyroid function, normal calcium, and stable liver function. Her iron levels are fine, no anemia. Her vitamin D level is normal. The patient continues to take olmesartan, metoprolol, iron, vitamin D, and citalopram for anxiety/depression, which she reports is working well. In terms of preventative health, the patient has received her influenza and COVID vaccines concurrently without any adverse reaction. She reports a history of becoming ill after a previous shingles vaccine, which caused a sensation of being unable to get up and was associated with Maldonado's palsy, did not get 2nd Shingrix vaccine. The patient receives regular podiatric care from Dr. Samreen Vincent every three months for nail trimming and recently had an ingrown nail treated. She has an upcoming ophthalmology appointment in February and a mammogram scheduled for August. She is also scheduled to see a sleep specialist in March and a manager sign in January. 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) Memory change Word finding difficulty Anemia due to gastrointestinal blood loss Paroxysmal atrial fibrillation Intermittent lightheadedness Thyroid nodule Type 2 diabetes mellitus without complication, with no history of insulin use Primary hyperparathyroidism Dyslipidemia (high LDL; low HDL) HTN (hypertension) Osteopenia Vitamin D deficiency Surgical History Hx of esophagogastroduodenoscopy Hx of cataract surgery Hx of total thyroidectomy Hx of cholecystectomy Hx of hysterectomy Hx of colonoscopy Family History Father Hypertension Diabetes mellitus Heart problem Congestive heart failure Carotid artery narrowing Mother Hypertension Diabetes mellitus Osteoporosis Colon polyps Social History Housing: House Alcohol intake: current Alcohol intake frequency: does not drink Patient Tobacco Use Status: Former Tobacco user Years Smoked: 50 +/- e-Cigarette/Vaping Use: Never Used service: No Current occupational status: retired Cognitive needs: No Hearing needs: No Vision needs: Yes Questionnaire PHQ-9 Over the last 2 weeks, how often have you been bothered by any of the following problems? 1. Little interest or pleasure in doing things: not at all 2. Feeling down, depressed, or hopeless: not at all 3. Trouble falling or staying asleep, or sleeping too much: not at all 4. Feeling tired or having little energy: not at all 5. Poor appetite or overeating: not at all 6. Feeling bad about yourself - or that you are a failure or have let yourself or your family down: not at all 7. Trouble concentrating on things, such as reading the newspaper or watching television: not at all 8. Moving or speaking so slowly that other people could have noticed. Or the opposite - being so fidgety or restless that you have been moving around a lot more than usual: not at all 9. Thoughts that you would be better off or of hurting yourself in some way: not at all Total score: 0 Depression Screening Interpretation: Negative Depression Screening Done: Yes Source: Developed by Drs. Buck Caballero, Myra Littlejohn, Aron Brumfield and colleagues, with an educational farzad from [employer]. Thrive Questionnaire Date Thrive assessed: 07/17/24 I am a: Patient What is your living situation today?: I have a steady place to live Within the past 12 months, did the food you bought not last and you didn't have the money to get more?: Never true Within the past 12 months, did you worry whether your food would run out before you got money to buy more?: Never true Do you have trouble paying for medicines?: No Do you have trouble getting transportation to medical appointments?: No Do you have trouble paying your heating and electricity bill?: No Do you have trouble taking care of your child, family member or friend?: No Do you have trouble with day-to-day activities such as bathing, preparing meals, shopping, managing finances, etc.?: No Are you currently unemployed and looking for a job?: No Are you interested in more education?: No Please select the resources that you would like help with: None Currently or been in a relationship where the following occur: I choose not to answer THRIVE Score: 0 AUDIT C Alcohol Use Questionnaire (AUDIT-C) 1. How often do you have a drink containing alcohol?: Never Total Score: 0 DAVID-7 AMB Questionnaire DAVID-7 Date DAVID - 7 assessed: 07/17/24 Source: Developed by Drs. Buck Caballero, Myra Littlejohn, Aron Brumfield and colleagues, with an educational farzad from [employer]. Review of Systems Const Denies body aches, Denies difficulty sleeping, Denies fatigue, Denies lethargy and Denies weakness Eyes Reports no additional complaints ENT Reports no additional complaints Card Denies chest pain, Denies rapid heart rate, Denies irregular heart rhythm, Denies claudication, Denies leg edema, Denies lightheadedness, Denies palpitations, Denies dyspnea and Denies dyspnea on exertion Resp Denies cough, Denies dyspnea and Denies dyspnea on exertion GI Reports no additional complaints Reports no additional complaints Musc Denies abnormal gait, Denies muscle weakness and Denies numbness Neuro Denies abnormal gait, Denies numbness and Denies weakness Psych Reports no additional complaints Endo Denies fatigue and Denies palpitations Dong/Lymph Reports no additional complaints Physical exam (Primary Care) Vital Signs: Last Vital Signs Temp 98.3 F 02/19/25 09:45 Pulse 66 02/19/25 09:45 Resp 16 02/19/25 09:45 BP 138/60 02/19/25 09:45 Pulse Ox 96 02/19/25 09:45 Oxygen Delivery Method Room Air 02/19/25 09:45 BMI result Body Mass Index 29.1 Tobacco/Smoking Status: Tobacco use Status Tobacco use date assessed 02/19/25 02/19/25 09:50 Patient Tobacco Use Status Former Tobacco user 02/19/25 09:50 e-Cigarette/Vaping Use Never Used 02/19/25 09:50 PHQ-9: PHQ-9 Score PHQ-9: Total score 0 02/19/25 10:03 Depression Screening Interpretation: Negative Thrive Assessment: Date of Thrive Assessment Date Thrive assessed 07/17/24 02/19/25 09:50 Currently or been in a relationship where the following occur: I choose not to answer Const Other: Alert elderly female, no acute cardiorespiratory distress, ambulatory with normal gait HENMT Face and sinus: Yes face symmetric Mouth: Normal oral and palatal mucosa present and moist mucous membranes Eyes General: appearance normal, both eyes and all related structures Neck Other: Supple, no lymphadenopathy, full range of motion Resp Effort & Inspection: normal respiratory effort and able to speak in complete sentences Auscultation: clear to auscultation bilaterally Cardio Other: S1-S2 present regular rate and rhythm GI Other: Normal bowel sounds, soft, nontender, no mass palpated General: Yes no CVA tenderness Back/Spine/Pelvis Back: no CVA tenderness and No back tenderness Neuro Other: No speech abnormality noted on today's visit General: gait normal, tone normal, moves all extremities, Normal light touch and pain sensation, no focal motor deficits and CN's II-XI intact bilaterally Extrem Other: Some plantar callus noted, some thickening in toenails in both feet, intact sensation in both General: Yes full ROM, Yes no joint enlargement, Yes no pedal edema, Yes no calf tenderness and Yes normal gait Psych Appearance: grossly normal Mental Status: mental status grossly normal Speech and movement: Normal speech and movement present Affect: normal affect Results Reviewed Results Reviewed: Name: Katelynn Cisneros Age/Sex: 79/F : 1945 Unit#: [id number] Attend Dr: Sasha White MD Re02/12/25 Status: DEP REF Location: [facility] Disch: SPEC : [id number] JOE: 02/12/25 STATUS: COMP REQ : [id number] RECD: 02/12/[address]: Sasha White MD COMP: 02/12/25 ENTERED: 02/12/[address]: ORDERED: Met Prof Fast, IRON PROF, AST, ALT, Lipid Panel, Vitamin D 25-OH, Free T TSH Rflx Test Result Flag Reference Sodium 137 135-145 mmol/L Potassium 4.3 3.3-5.1 mmol/L CL 102 96-108 mmol/L CO2 28 22-29 mmol/L Gap 11 L 12-20 BUN 7 L 9-16 mg/dL Creat 0.75 0.5-1.4 mg/dL eGFR > 60 Chronic Kidney Disease: Estimated GFR < 60 mL/min/1.73m2 Severe Kidney Disease: Estimated GFR < 15 mL/min/1.73m2 FBS 138 H 60-99 mg/dL A fasting glucose of 126 mg/dl or greater on more than one occasion is considered diagnostic of diabetes. CA 9.2 8.4-10.2 mg/dL Iron 102 30-160 mcg/dL TIBC 312 228-428 mcg/dL Saturation 33 15-50 % UIBC 210 ug/dL AST (GOT) 29 5-31 U/L ALT (GPT) 24 0-31 U/L Triglyceride 146 <150 mg/dL Desirable Triglyceride: less than 150 mg/dL Borderline High Triglyceride 150-199 mg/dL High Triglyceride: 200-499 mg/dL Very High Triglyceride: greater than or equal to 5OO mg/dL Cholesterol 152 <200 mg/dL Desirable Cholesterol: less than 200 mg/dL Borderline High Cholesterol: 200-239 mg/dL High Cholesterol: greater than 239 mg/dL LDL Calculated 69 <100 mg/dL Desirable LDL: less than 100 mg/dL Near Optimal/Above Optimal LDL: 110-129 mg/dL Borderline High LDL: 130-159 mg/dL High LDL: 160-189 mg/dL Very High LDL: greater than or equal to 190 mg/dL HDL 54 >40 mg/dL Desirable HDL: greater than 40 mg/dL Note: This HDL assay may give artificially low results in patients with liver disease. Vitamin D 25-OH 35.8 >30 ng/mL Health Based Reference Values* < 20 ng/mL Deficient 20-30 ng/mL Insufficient > 30 ng/mL Sufficient *Josie BURNS. N Engl J Med. 2007;357:266-280 There is no well-established upper level of normal vitamin D levels. Some laboratories use 50 ng/mL as an upper limit of normal. However, toxicity is patient-dependent and may occur at any level. Careful correlation with the patient's presentation is necessary and, if there is concern for vitamin D toxicity, treatment should be considered irrespective of the serum level. Care must be taken in interpreting Vitamin D results from different laboratories and methodologies. Published data demonstrated that results from patients undergoing hemodialysis may show a negative bias when tested with various automated 25-OH vitamin D assays when compared to LC-MS/MS. When testing samples from patients whose predominant form of Vitamin D is Vitamin D2, such as patients receiving Vitamin D2 supplementation, results that are subtherapeutic should be confirmed with another method such as LC-MS/MS. Free T4 1.04 0.71-1.85 ng/dL TSH 4.04 H 0.32-4.0 uIU/mL Laboratory Tests 11/14/24 02/12/25 10:15 09:56 Hgb 13.2 Hct 40.3 Estimat Average Glucose 157 Hemoglobin A1c % 7.1 H Laboratory Tests 07/15/24 09:37 Microalb/Creat Ratio 19.0 Laboratory Tests 02/12/25 09:56 Estimat Average Glucose 169 Hemoglobin A1c % 7.5 H Coding Level of Care Code Est Pt Level 4 (76735) Complex EM visit Add On G2211 Diagnoses Type 2 diabetes mellitus with hyperglycemia E11.65 HTN (hypertension), benign I10 Osteopenia, unspecified location M85.80 Osteopenia location: unspecified Dyslipidemia (high LDL; low HDL) E78.5 Assessment & Plan Assessment & Plan (1) Type 2 diabetes mellitus with hyperglycemia: Code(s): E11.65 - Type 2 diabetes mellitus with hyperglycemia Category: Medical Plan: Continued on metformin ER 750 mg 1 tablet twice a day with meals. Reinforced importance of adhering to diabetic diet and getting regular exercise. Up-to-date with her diabetes eye exam and diabetes foot care (2) HTN (hypertension), benign: Code(s): I10 - Essential (primary) hypertension Category: Medical Plan: Continued on metoprolol succinate ER 50 mg daily and olmesartan 5 mg once a day. Stressed importance of adhering to a low-sodium diet getting regular exercise. (3) Osteopenia: Code(s): M85.80 - Other specified disorders of bone density and structure, unspecified site Category: Medical Qualifiers: Osteopenia location: unspecified Qualified Code(s): M85.80 - Other specified disorders of bone density and structure, unspecified site Plan: Reinforced importance of doing regular weight-bearing exercise, taking adequate calcium from dietary sources and taking vitamin-D 3 supplements at least 2000 units daily (4) Dyslipidemia (high LDL; low HDL): Code(s): E78.5 - Hyperlipidemia, unspecified Category: Medical Plan: Continued on rosuvastatin 5 mg taken every other day. Orders: Orders Alanine Aminotransferase 05/25/25 E11.65 - Type 2 diabetes mellitus with hyperglycemia, E78.5 - Hyperlipidemia, unspecified, I10 - Essential (primary) hypertension, M85.80 - Other specified disorders of bone density and structure, unspecified site Basic Metabolic Panel Fasting 05/25/25 E11.65 - Type 2 diabetes mellitus with hyperglycemia, E78.5 - Hyperlipidemia, unspecified, I10 - Essential (primary) hypertension, M85.80 - Other specified disorders of bone density and structure, unspecified site Hemoglobin A1c 05/25/25 E11.65 - Type 2 diabetes mellitus with hyperglycemia, E78.5 - Hyperlipidemia, unspecified, I10 - Essential (primary) hypertension, M85.80 - Other specified disorders of bone density and structure, unspecified site Microalbumin, Random (w Creat) 05/25/25 E11.65 - Type 2 diabetes mellitus with hyperglycemia, E78.5 - Hyperlipidemia, unspecified, I10 - Essential (primary) hypertension, M85.80 - Other specified disorders of bone density and structure, unspecified site Complete Blood Count Auto Diff 05/25/25 Z86.2 - Personal history of diseases of the blood and blood-forming organs and certain disorders involving the immune mechanism, Z87.19 - Personal history of other diseases of the digestive system Lipid Panel 05/25/25 E11.65 - Type 2 diabetes mellitus with hyperglycemia, E78.5 - Hyperlipidemia, unspecified, I10 - Essential (primary) hypertension, M85.80 - Other specified disorders of bone density and structure, unspecified site Aspartate Amino Transferase 05/25/25 E11.65 - Type 2 diabetes mellitus with hyperglycemia, E78.5 - Hyperlipidemia, unspecified, I10 - Essential (primary) hypertension, M85.80 - Other specified disorders of bone density and structure, unspecified site Vitamin D 25-OH Total 05/25/25 E11.65 - Type 2 diabetes mellitus with hyperglycemia, E78.5 - Hyperlipidemia, unspecified, I10 - Essential (primary) hypertension, M85.80 - Other specified disorders of bone density and structure, unspecified site IRON PROFILE 05/25/25 Z86.2 - Personal history of diseases of the blood and blood-forming organs and certain disorders involving the immune mechanism, Z87.19 - Personal history of other diseases of the digestive system Medications: Changed From lancets (Oneuch Delica Lancets) test blood sugar once daily 100 ea 3RF E11.9 - Type 2 diabetes mellitus without complications To lancets test blood sugar once daily 100 ea 3RF E11.9 - Type 2 diabetes mellitus without complications Refilled blood sugar diagnostic (Shoppilotuch Ultra Test strips) test blood sugars once daily 100 ea 3RF E11.9 - Type 2 diabetes mellitus without complications
--- OUTSIDE RECORDS SUMMARY | 2025-02-19 10:44 | XMS_ITS | Patient Health Record ---
[facility] Address [address] [place] [address] Care Team Providers Care Weight Guesser Name Role Phone Cindy TIWARI, Sasha Bales Primary Care Provider Un available Jo Ann Vincent Unavailable [phone] Allergies No Known Allergies Results Component Value [...] Problem Acquired hammer toe of right foot (9723771790671328 ) Other hammer toe(s) (acquired), right foot (M20.41) Active confirmed Problem Acquired hammer toe of left foot (8001098798684013 ) Other hammer toe(s) (acquired), left foot (M20.42) Active confirmed Problem Polyneuropathy due to diabetes mellitus type I (616594062) Type 1 diabetes mellitus with diabetic polyneuropathy (E10.42) Active confirmed Problem Polyneuropathy due to type 2 diabetes mellitus (941758876) Type 2 diabetes mellitus with diabetic polyneuropathy (E11.42) Active confirmed Vital Signs Blood pressure diastolic 65 mm Hg 01/20/2025 Height 5 ft 2inch in 01/20/2025 Blood pressure systolic 128 mm Hg 01/20/2025 Weight 159 lbs 01/20/2025 BMI 29.08 kg/m2 01/20/2025 Procedures Procedure Date Ordered Date Performed Result Body Sit e 26160-[id number] NAIL, 6 OR MORE 10/14/2024 N/A [id number] SKIN LESIONS, 2 TO 4 10/14/2024 N/A [id number] NAIL, 6 OR MORE 01/20/2025 N/A Encounters Encounter Location Date Provider Diagnosis [facility] [address] [address] 10/14/2024 Jo Ann Vincent Other hammer toe(s) (acquired), right foot M20.41 ; Other hammer toe(s) (acquired), left foot M20.42 ; Type 2 diabetes mellitus with diabetic polyneuropathy E11.42 and Tinea unguium B35.1 [facility] [address] [address] 01/20/2025 Jo Ann Vincent Type 2 diabetes [...] Treatment Pending Test Test Name Order Date [id number] NAIL, 6 OR MORE 10/14/2024 [id number]-[id number] NAIL, 6 OR MORE 01/20/2025 [id number] SKIN LESIONS, 2 TO 4 10/15/19 25 Next Appt Details Provider Name:Jo Ann covington, 04/28/2025 02:00:00 PM, [address] [place], [address], Insurance Providers Payer Name Payer Address Payer Phone Subscriber Number Group Number Insured Name Patient Relationship to Insured Coverage Start Date Coverage End Date [facility] 65 Medicare Preferred [address] [place] [address] [id number] Katelynn Cisneros Self - patient is the insured Medical (General) History Medical History History ICD Code Cataracts Diabetic Gall bladder High Blood Pressure thyroid Measles Mumps Chicken pox Transfusions Surgical History Surgery Date(Month/Year) Gall bladder removal 11/1975 hysterectomy 11/2003
== END 2025-02-19 10:15 | disposition home or self-care (01) ==
LOC: HO.HMCC 09:19
PROVIDERS: PCP Internal Medicine; Visit Provider Internal Medicine
DX: E11.65 Type 2 diabetes mellitus with hyperglycemia (principal); I10 Essential (primary) hypertension; M85.80 Other specified disorders of bone density and structure, unspecified site; E78.5 Hyperlipidemia, unspecified

== ENCOUNTER → 2025-02-19 09:18 | Outpatient (BNVA) | payer MEDICARE, SELFPAY | PROVIDERS: PCP Internal Medicine; Visit Provider Internal Medicine | DX: E11.65 Type 2 diabetes mellitus with hyperglycemia (principal); I10 Essential (primary) hypertension; M85.80 Other specified disorders of bone density and structure, unspecified site; E78.5 Hyperlipidemia, unspecified | CPT/HCPCS: 96127; 99212 ==

== ENCOUNTER 2025-04-10 09:02 | Outpatient (AMB) | payer MEDICARE, SELFPAY ==
[2025-04-10 09:06] VITALS: BP 158/80; PULSE 68; O2SAT 97; BMI 29.8
--- NOTE | 2025-04-10 09:06 | A.OFFVIS_ITS ---
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: No Accompanied by: Daughter Allergies vaccine adjuvant system, AS01B lipo (From Shingrix (PF)) Allergy (Severe, Verified 04/10/25 09:06) Maldonado's Palsy varicella-zoster virus glycoprotein (From Shingrix (PF)) Allergy (Severe, Verified 04/10/25 09:06) Maldonado's Palsy valacyclovir Adverse Reaction (Intermediate, Verified 04/10/25 09:06) Hallucinations, forgetfulness and dizziness Medication List - Last Reconciled 04/10/25 by Karely Mcintyre MD blood pressure monitor (Blood Pressure Kit) As directed blood sugar diagnostic (FitnessKeeperuch Ultra Test strips) test blood sugars once daily blood-glucose meter (FitnessKeeperuch Ultra2 Meter) Check fasting blood sugar twice a day before meals cholecalciferol (vitamin D3) 50 mcg PO DAILY citalopram 10 mg PO DAILY ferrous sulfate 325 mg PO DAILY lancets (FitnessKeeperuch Delica Plus Lancet) check blood sugar once daily as directed metformin ER 750 mg PO BID 3 months metoprolol succinate ER 50 mg PO DAILY olmesartan 5 mg PO DAILY rosuvastatin 5 mg PO Q2D 3 months HPI Comments Details: 79y/o female comes here for follow up of memory issues and word finding difficulties. she reports worsening- takes her time to do her bills, uses wrong words or searches for words. she reports difficulty with fine motor coordination. she is independant in all her ADLs and has a good social life she lives with her and her son. .she is accompanied by her daughter .Her mood is stable with citalopram she is motivated. 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) Memory change Word finding difficulty Anemia due to gastrointestinal blood loss Paroxysmal atrial fibrillation Intermittent lightheadedness Thyroid nodule Type 2 diabetes mellitus without complication, with no history of insulin use Primary hyperparathyroidism Dyslipidemia (high LDL; low HDL) HTN (hypertension) Osteopenia Vitamin D deficiency Surgical History Hx of esophagogastroduodenoscopy Hx of cataract surgery Hx of total thyroidectomy Hx of cholecystectomy Hx of hysterectomy Hx of colonoscopy Family History Father Hypertension Diabetes mellitus Heart problem Congestive heart failure Carotid artery narrowing Mother Hypertension Diabetes mellitus Osteoporosis Colon polyps Social History Housing: House Alcohol intake: current Alcohol intake frequency: does not drink Patient Tobacco Use Status: Former Tobacco user Years Smoked: 50 +/- e-Cigarette/Vaping Use: Never Used service: No Current occupational status: retired Cognitive needs: No Hearing needs: No Vision needs: Yes Review of Systems Neuro Reports Abnormal speech present Physical Exam Vital Signs: Last Vital Signs Pulse 68 04/10/25 09:06 BP 158/80 H 04/10/25 09:06 Pulse Ox 97 04/10/25 09:06 Oxygen Delivery Method Room Air 04/10/25 09:06 BMI result Body Mass Index 29.8 Const General: cooperative, healthy appearing and comfortable Nutritional Appearance: average body habitus Orientation/consciousness: patient oriented x3 Eyes Pupils: Equal, round and reactive pupils present Neuro General: patient oriented x3, tone normal, moves all extremities and no focal motor deficits Cranial nerves: Yes Facial sensation intact/muscles of mastication intact, Yes Equal, round and reactive pupils present, Yes Bilaterally intact EOM present, Yes Nystagmus not present, Yes Normal facial strength present and No Midline tongue present Cognition (Neuro): normal cognition Speech: Abnormal speech present Gait exam (Neuro): Normal gait present Motor exam (neuro): 5/5 motor strength present throughout Coordination: [id number] test normal Assessment & Plan Assessment & Plan (1) Memory change: Comment: mood related Code(s): R41.3 - Other amnesia Category: Medical (2) Word finding difficulty: Code(s): R47.89 - Other speech disturbances Category: Medical Plan Continue Citalopram 10 mg qd for mood Suggested activities to improve her hand coordination. Coding Level of Care Code Est Pt Level 4 (41059) Diagnoses Memory change R41.3 Word finding difficulty R47.89
--- OUTSIDE RECORDS SUMMARY | 2025-04-10 10:11 | XMS_ITS | Patient Health Record ---
[facility] Address [address] [place] [address] Care Team Providers Care Rhia Name Role Phone Cindy TIWARI, Sasha Bales Primary Care Provider Un available Jo Ann Vincent Unavailable [phone] Allergies No Known Allergies Results Component Value [...] Problem Acquired hammer toe of right foot (3984247942902855 ) Other hammer toe(s) (acquired), right foot (M20.41) Active confirmed Problem Acquired hammer toe of left foot (0181962773208773 ) Other hammer toe(s) (acquired), left foot (M20.42) Active confirmed Problem Polyneuropathy due to diabetes mellitus type I (480940221) Type 1 diabetes mellitus with diabetic polyneuropathy (E10.42) Active confirmed Problem Polyneuropathy due to type 2 diabetes mellitus (043495716) Type 2 diabetes mellitus with diabetic polyneuropathy (E11.42) Active confirmed Vital Signs Blood pressure diastolic 65 mm Hg 01/20/2025 Height 5 ft 2inch in 01/20/2025 Blood pressure systolic 128 mm Hg 01/20/2025 Weight 159 lbs 01/20/2025 BMI 29.08 kg/m2 01/20/2025 Procedures Procedure Date Ordered Date Performed Result Body Sit e 95832-[id number] NAIL, 6 OR MORE 10/14/2024 N/A [id number] SKIN LESIONS, 2 TO 4 10/14/2024 N/A [id number] NAIL, 6 OR MORE 01/20/2025 N/A Encounters Encounter Location Date Provider Diagnosis [facility] [address] [address] 10/14/2024 Jo Ann Vincent Other hammer toe(s) (acquired), right foot M20.41 ; Other hammer toe(s) (acquired), left foot M20.42 ; Type 2 diabetes mellitus with diabetic polyneuropathy E11.42 and Tinea unguium B35.[address] [facility] [address] [address] 01/20/2025 Jo Ann Vincent Type 2 diabetes [...] Treatment Pending Test Test Name Order Date [id number] NAIL, 6 OR MORE 10/14/2024 50935-[id number] NAIL, 6 OR MORE 01/20/2025 62488-VDFE SKIN LESIONS, 2 TO 4 10/15/19 25 Next Appt Details Provider Name:Jo Ann covington, 04/28/2025 02:00:00 PM, [address] [place], [address], Insurance Providers Payer Name Payer Address Payer Phone Subscriber Number Group Number Insured Name Patient Relationship to Insured Coverage Start Date Coverage End Date [facility] 65 Medicare Preferred [address] [place] [address] [id number] Katelynn Cisneros Self - patient is the insured Medical (General) History Medical History History ICD Code Cataracts Diabetic Gall bladder High Blood Pressure thyroid Measles Mumps Chicken pox Transfusions Surgical History Surgery Date(Month/Year) Gall bladder removal 11/1975 hysterectomy 11/2003
== END 2025-04-10 09:32 | disposition home or self-care (01) ==
LOC: HO.HSMS 09:03
PROVIDERS: PCP Internal Medicine; Visit Provider Psychiatry & Neurology Neurology
DX: R41.3 Other amnesia (principal); R47.89 Other speech disturbances
CPT/HCPCS: 99214

== ENCOUNTER → 2025-04-10 09:02 | Outpatient (BNVA) | payer MEDICARE, SELFPAY | PROVIDERS: PCP Internal Medicine; Visit Provider Psychiatry & Neurology Neurology | DX: R41.3 Other amnesia (principal); R47.89 Other speech disturbances; Z79.899 Other long term (current) drug therapy | CPT/HCPCS: 99212 ==